=== PATIENT | female | born 1960 | race Caucasian/White ===

== ENCOUNTER → 2017-10-02 08:11 | Outpatient (CLI) | payer OTHER, SELFPAY ==
--- NOTE | 2017-10-02 08:15 | BI_ITS ---
MAMMOGRAPHY - BILATERAL SCREENING 3-D WOLF SYNTHESIS REASON FOR EXAM: Female, 57 years old. Bilateral Screening 3-D tomosynthesis PERTINENT HISTORY: Asymptomatic. Right stereotactic biopsy 2016. Fibrocystic breast disease. Bilateral breast reduction 2014. No significant family history. TECHNIQUE: 2-D mammograms and 3-D Wolf synthesis of the breast (s) were performed. CAD was performed. COMPARISON: 08/22/2016 through 12/22/2014. FINDINGS: The breast composition is composed of scattered fibroglandular density. No new asymmetric density, dominant mass, dense spiculated masses, abnormal clustered microcalcifications, architectural distortion, skin thickening or nipple retraction identified. Coarse benign-appearing calcifications. Right subareolar tiny biopsy clip. No new abnormality identified with tomosynthesis. There has been no significant change since the prior study. BI/SCREENING MAMM (CAD), BILAT IMPRESSION: No mammographic signs of malignancy. Routine yearly mammograms recommended. ASSESSMENT CATEGORY: BIRADS Category 2: Benign. A letter regarding these results will be sent to the patient by the facility within 30 days. FOLLOW UP RECOMMENDATION: Yearly follow up mammogram recommended. (A) Negative results should not deter biopsy as a palpable lesion should be followed on clinical grounds and biopsy performed if clinically persistent for 3 months or increasing size. Approximately 10% of breast cancers are not detected by mammography. A normal mammogram should not delay biopsy of a clinically suspicious abnormality. Electronically Signed: Harshad Cao, at 20:05 EDT Tel , Service support ,
== END ==
PROVIDERS: Family Provider Nurse Practitioner Family; PCP Nurse Practitioner Family; Visit Provider Nurse Practitioner Family
DX: Z12.31 Encounter for screening mammogram for malignant neoplasm of breast (principal)
CPT/HCPCS: 77063; 77067

== ENCOUNTER → 2018-10-08 | Outpatient (CLI) | payer OTHER, SELFPAY ==
--- NOTE | 2018-10-08 08:08 | BI_ITS ---
MAMMOGRAPHY - BILATERAL SCREENING REASON FOR EXAM: Female, 58 years old. Routine annual screening examination. PERTINENT HISTORY: Sister with breast cancer. Remote right stereotactic breast biopsy and bilateral breast reduction surgery. TECHNIQUE: Digital bilateral breast stacey (3D mammographic acquisition) in the CC and MLO projections. 2-D mediolateral oblique (MLO) and craniocaudad (CC) views of both breasts were obtained. CAD: Full Field Digital Mammography with Computer Added Detection was performed. COMPARISON: Comparison is made with prior study dated October 02, 2017 and August 22, 2016. FINDINGS: Breast Composition: There are scattered areas of fibroglandular density. There are no dominant masses or suspicious calcifications. Stable appearance of the tissue clip marker in the right subareolar region. No other significant abnormalities are identified. There has been no significant change since the prior study. BI/SCREENING MAMM (CAD), BILAT IMPRESSION: Stable bilateral screening mammogram. Yearly follow-up mammogram recommended. (A) ASSESSMENT CATEGORY: BIRADS Category 2: Benign. A letter regarding these results will be sent to the patient by the facility within 30 days. Approximately 10% of breast cancers are not detected by mammography. A normal mammogram should not delay biopsy of a clinically suspicious abnormality. [id number] Electronically Signed: Yasir Lebron, at 8:55 EDT , Service support ,
== END | disposition home or self-care (01) ==
LOC: OPBI 08:05
PROVIDERS: Family Provider Nurse Practitioner Family; PCP Nurse Practitioner Family; Referring Provider Nurse Practitioner Family; Visit Provider Nurse Practitioner Family
DX: Z12.31 Encounter for screening mammogram for malignant neoplasm of breast (principal)
CPT/HCPCS: 77067

== ENCOUNTER → 2019-11-04 07:58 | Outpatient (CLI) | payer OTHER, SELFPAY ==
--- NOTE | 2019-11-04 08:02 | BI_ITS ---
MAMMOGRAPHY - BILATERAL SCREENING REASON FOR EXAM: Female, 59 years old. Routine annual screening examination. PERTINENT HISTORY: Non-contributory. History of prior right stereotactic breast biopsy and bilateral breast reduction surgery. TECHNIQUE: Digital bilateral breast wolf (3D mammographic acquisition) in the CC and MLO projections. 2-D mediolateral oblique (MLO) and craniocaudad (CC) views of both breasts were obtained. CAD: Full Field Digital Mammography with Computer Added Detection was performed. COMPARISON: Comparison is made with prior study dated 10/08/2018 and 10/02/2017. FINDINGS: Breast Composition: There are scattered areas of fibroglandular density. There are no dominant masses or suspicious calcifications. Stable benign-appearing bilateral axillary lymph nodes. Once again, a tissue clip marker is seen in the right subareolar region. No other significant abnormalities are identified. There has been no significant change since the prior study. BI/SCREEN MAMM (CAD) W/WOLF BILAT IMPRESSION: Stable bilateral screening mammogram. Yearly follow-up mammogram recommended. (A) ASSESSMENT CATEGORY: BIRADS Category 2: Benign. A letter regarding these results will be sent to the patient by the facility within 30 days. Approximately 10% of breast cancers are not detected by mammography. A normal mammogram should not delay biopsy of a clinically suspicious abnormality. [id number] Electronically Signed: Yasir Lebron, at 9:02 EDT , Service support ,
== END ==
PROVIDERS: PCP Nurse Practitioner Family; Referring Provider Nurse Practitioner Family; Visit Provider Nurse Practitioner Family
DX: Z12.31 Encounter for screening mammogram for malignant neoplasm of breast (principal)
CPT/HCPCS: 77063; 77067

== ENCOUNTER → 2020-11-02 06:53 | Outpatient (CLI) | payer OTHER, SELFPAY ==
--- NOTE | 2020-11-02 06:59 | CT_ITS ---
STUDY: CT ABDOMEN AND PELVIS WITHOUT CONTRAST REASON FOR EXAM: Female, 60 years old. CHRONIC CYSTITIS. Prior right nephrectomy. RADIATION DOSAGE (If Supplied By Facility): CTDIvol = ( 29.33 ) mGy, DLP = ( 1582.56 ) mGycm TECHNIQUE: Transaxial images were obtained from the dome of the diaphragm to the symphysis pubis without oral contrast, and without intravenous contrast. Sagittal and coronal images were reconstructed. Individualized dose optimization techniques were used for this CT. COMPARISON: None. FINDINGS: The visualized lung bases are unremarkable. The visualized portions of the heart are within normal limits. There is decreased attenuation of the liver consistent with steatosis. The patient is status post cholecystectomy. Normal spleen. Normal pancreas. Normal bilateral adrenal glands. The patient is status post right nephrectomy. Normal left kidney. There is a small hiatal hernia. Normal small intestine. Normal colon. The patient is status post appendectomy. Normal abdominal aorta. Normal inferior vena cava. There is borderline retroperitoneal lymphadenopathy with enlarged nodes no greater than 10mm in the short axis diameter. The bladder is only partially filled. There is absence of the uterus consistent with a prior hysterectomy. There is a small umbilical hernia containing fat. Minimal anterior listhesis of L4 on L5 secondary to facet joint osteoarthritis. CT/Abdomen/Pelvis without Cont IMPRESSION: Status post right nephrectomy. Fatty infiltration of the liver. Electronically Signed: Yasir Lebron MD at 9:50 EDT , Service support ,
== END ==
PROVIDERS: PCP Nurse Practitioner Family; Referring Provider Nurse Practitioner Adult Health; Visit Provider Nurse Practitioner Adult Health
DX: N30.21 Other chronic cystitis with hematuria (principal); Z90.5 Acquired absence of kidney
CPT/HCPCS: 74176

== ENCOUNTER → 2020-11-23 08:24 | Outpatient (CLI) | payer OTHER, SELFPAY ==
--- NOTE | 2020-11-23 08:25 | BI_ITS ---
MAMMOGRAPHY - BILATERAL SCREENING REASON FOR EXAM: Female, 60 years old. Routine annual screening examination. PERTINENT HISTORY: Sister with breast cancer. Prior right stereotactic breast biopsy and bilateral breast reduction surgery. TECHNIQUE: Digital bilateral breast wolf (3D mammographic acquisition) in the CC and MLO projections. 2-D mediolateral oblique (MLO) and craniocaudad (CC) views of both breasts were obtained. CAD: Full Field Digital Mammography with Computer Added Detection was performed. COMPARISON: Comparison is made with prior study dated 11/04/2019 and 10/08/2018. FINDINGS: Breast Composition: There are scattered areas of fibroglandular density. There are no dominant masses or suspicious calcifications. Interstitial clip marker is seen in the deep upper aspect of the left breast. Stable appearance of the small bilateral axillary lymph nodes. No other significant abnormalities are identified. There has been no significant change since the prior study. BI/SCRN MAMM (CAD)W/WOLF BILAT IMPRESSION: Stable bilateral screening mammogram. Yearly follow-up mammogram recommended. (A) ASSESSMENT CATEGORY: BIRADS Category 2: Benign. A letter regarding these results will be sent to the patient by the facility within 30 days. Approximately 10% of breast cancers are not detected by mammography. A normal mammogram should not delay biopsy of a clinically suspicious abnormality. [id number] Electronically Signed: Yasir Lebron MD at 9:19 EDT , Service support ,
== END ==
PROVIDERS: PCP Nurse Practitioner Family; Referring Provider Nurse Practitioner Family; Visit Provider Nurse Practitioner Family
DX: Z12.31 Encounter for screening mammogram for malignant neoplasm of breast (principal)
CPT/HCPCS: 77063; 77067

== ENCOUNTER → 2021-11-29 | Outpatient (CLI) | payer OTHER, SELFPAY ==
--- NOTE | 2021-11-29 08:56 | BI_ITS ---
MAMMOGRAPHY - BILATERAL SCREENING REASON FOR EXAM: Female, 61 years old. Routine annual screening examination. PERTINENT HISTORY: Sister with breast cancer. Prior right stereotactic breast biopsy and bilateral breast reduction surgery. TECHNIQUE: Digital bilateral breast wolf (3D mammographic acquisition) in the CC and MLO projections. 2-D mediolateral oblique (MLO) and craniocaudad (CC) views of both breasts were obtained. CAD: Full Field Digital Mammography with Computer Added Detection was performed. COMPARISON: Comparison is made with prior study dated 11/23/2020 and 11/04/2019. FINDINGS: Breast Composition: There are scattered areas of fibroglandular density. There are no dominant masses or suspicious calcifications. A tissue clip marker is seen in the upper deep slightly lateral aspect of the left breast in keeping with prior biopsy. Stable bilateral fat-containing axillary lymph nodes. No other significant abnormalities are identified. There has been no significant change since the prior study. BI/SCRN MAMM (CAD)W/WOLF BILAT IMPRESSION: Stable bilateral screening mammogram. Yearly follow-up mammogram recommended. (A) ASSESSMENT CATEGORY: BIRADS Category 2: Benign. A letter regarding these results will be sent to the patient by the facility within 30 days. Approximately 10% of breast cancers are not detected by mammography. A normal mammogram should not delay biopsy of a clinically suspicious abnormality. [id number] Electronically Signed: Yasir Lebron MD at 10:13 EDT ,
== END | disposition home or self-care (01) ==
LOC: OPBI 08:48
PROVIDERS: PCP Nurse Practitioner Family; Visit Provider Nurse Practitioner Family
DX: Z12.31 Encounter for screening mammogram for malignant neoplasm of breast (principal); Z80.3 Family history of malignant neoplasm of breast
CPT/HCPCS: 77063; 77067

== ENCOUNTER → 2022-12-05 | Outpatient (CLI) | payer BC, SELFPAY ==
--- NOTE | 2022-12-05 08:03 | BI_ITS ---
MAMMOGRAPHY - BILATERAL SCREENING REASON FOR EXAM: Female, 62 years old. Routine annual screening examination. PERTINENT HISTORY: Sister with breast cancer. Prior bilateral breast reduction surgery and right stereotactic breast biopsy. TECHNIQUE: Digital bilateral breast wolf (3D mammographic acquisition) in the CC and MLO projections. 2-D mediolateral oblique (MLO) and craniocaudad (CC) views of both breasts were obtained. CAD: Full Field Digital Mammography with Computer Added Detection was performed. COMPARISON: Comparison is made with prior study November 29, 2021 and November 23, 2020. FINDINGS: Breast Composition: There are scattered areas of fibroglandular density. There are no dominant masses or suspicious calcifications. A tissue clip marker is once again seen in the upper deep slightly lateral aspect of the left breast. Stable small bilateral fat-containing axillary lymph nodes. No other significant abnormalities are identified. There has been no significant change since the prior study. BI/SCRN MAMM (CAD)W/WOLF BILAT IMPRESSION: Stable bilateral screening mammogram. Yearly follow-up mammogram recommended. (A) ASSESSMENT CATEGORY: BIRADS Category 2: Benign. A letter regarding these results will be sent to the patient by the facility within 30 days. Approximately 10% of breast cancers are not detected by mammography. A normal mammogram should not delay biopsy of a clinically suspicious abnormality. [id number] Electronically Signed: Yasir Lebron MD at 10:08 EDT ,
== END | disposition home or self-care (01) ==
LOC: OPBI 08:01
PROVIDERS: PCP Nurse Practitioner Family; Visit Provider Nurse Practitioner Family
DX: Z12.31 Encounter for screening mammogram for malignant neoplasm of breast (principal)
CPT/HCPCS: 77063; 77067

== ENCOUNTER → 2023-04-24 | Outpatient (CLI) | payer BC, SELFPAY ==
[2023-04-24 16:17] LABS: Vitamin D,25 Hydroxy 39.2 ng/mL
[2023-04-24 16:39] LABS: T4 Free Direct 1.25 ng/dL (0.76-1.46); Thyroid Stim Hormone (TSH) 1.13 uIU/mL (0.358-3.74)
--- OUTSIDE RECORDS SUMMARY | 2023-04-24 21:24 | XMS RPT_ITS | CCD ---
Author Name Unknown Address [facility] [address] [place] [address] Organization [facility] Care Team Providers Care Machine Rebuilder Name Role Phone AYLA Stallings CNP, BORIS Yoder Primary Care Phys ician Ashiwni PT, Ora Unavailable Unavailable AYLA Stallings CNP, BORIS Yoder Attending U navailable AYLA ANDREW - ZANE, BORIS Yoder Primary Care U navailable SUPPAN DPM, COLLEEN Green Attending Unavailable AYLA GEOSPATIAL SYSTEMS INTEGRATOR - COMMERCIAL INTELLIGENCE MANAGER, BORIS Yoder Primary Care U navailable SUPPAN DPM, COLLEEN Green Attending Unavailable AYLAJUAN ANDREW - COMMERCIAL INTELLIGENCE MANAGER, BORIS Yoder Primary Care U navailable PAT MIRANDA, NELSON Salazar Attending Unavail able AYLAJUAN ANDREW - COMMERCIAL INTELLIGENCE MANAGER, BORIS Yoder Primary Care U navailable Allergies Allergy Classification Reported Allergen(s) Allergy Type Date of Onset Reaction(s) Facility (6 sources) Codeine; Translations: [codeine] Drug Allergy [facility] (6 sources) Erythromycin; Translations: [erythromycin] Drug Allergy [facility] Medications Current Medications Medication Drug Class(es) Dates Sig (Normalized) Sig (Original) acetaminophen 500 mg oral tablet (6 sources) Start: 02-17-2019 acetaminophen 500 mg oral tablet Dose : 1,000 mg = 2 tab(s), Oral, TID, PRN for pain, 0 Refill(s) Start Date: 02/17/19 Status: Ordered azithromycin 250 mg oral tablet (1 source) Macrolide Antimicrobial Start: 02-10-2021 End: 02-15-2021 Zithromax 250 mg oral tablet Dose : 250 mg = 1 tab(s), Oral, qDay, follow directions on Z-Meek, X 5 day(s), # 6 tab(s), 0 Refill(s), 02/15/21 9:06:00 EST, Pharmacy: [facility], URI (upper respiratory infection), 160, cm, 11/28/20 11:22:00 EDT, Height, 122.7, kg, 11/28/20... Start Date: 02/10/21 Stop Date: 02/15/21 Status: Ordered AZO Urinary Pain Relief Max Strength (3 sources) Start: 12-04-2021 AZO Urinary Pain Relief Max Strength Oral, TIDPC, 0 Refill(s) Start Date: 12/04/21 Status: Ordered dexamethasone 6 mg oral tablet (1 source) Corticosteroid Start: 03-23-2021 End: 03-30-2021 dexamethasone 6 mg oral tablet Dose : 6 mg = 1 tab(s), Oral, qDay, X 7 day(s), # 7 tab(s), 0 Refill(s), 03/30/21 10:07:00 EST, Pharmacy: [facility], Acute sinusitis, unspecified, 160, cm, 03/23/21 9:14:00 EST, Height, kg, 03/23/21 9:14:00 EST, Dosing Weight Start Date: 03/23/21 Stop Date: 03/30/21 Status: Ordered guaiFENesin 600 mg oral tablet (1 source) Start: 03-23-2021 End: 04-02-2021 guaiFENesin 600 mg oral tablet, extended release Dose : 600 mg = 1 tab(s), Oral, q12h, X 10 day(s), # 20 tab(s), 0 Refill(s), 04/02/21 10:07:00 EST, Pharmacy: [facility], Acute sinusitis, unspecified, 160, cm, 03/23/21 9:14:00 EST, Height, kg, 03/23/21 9:14:00 EST, Dosing Weight Start Date: 03/23/21 Stop Date: 04/02/21 Status: Ordered levoFLOXacin 500 mg oral tablet (1 source) Quinolone Antimicrobial Start: 03-23-2021 End: 03-30-2021 levoFLOXacin 500 mg oral tablet Dose : 500 mg = 1 tab(s), Oral, q24h, X 7 day(s), # 7 tab(s), 0 Refill(s), 03/30/21 10:07:00 EST, Pharmacy: [facility], Acute sinusitis, unspecified, 160, cm, 03/23/21 9:14:00 EST, Height, 122.7, kg, 03/23/21 9:14:00 EST, Dosing Weight Start Date: 03/23/21 Stop Date: 03/30/21 Status: Ordered levothyroxine sodium 0.125 mg oral tablet (6 sources) l-Thyroxine Start: 09-28-2022 levothyroxine 125 mcg (0.125 mg) oral tablet Dose : 125 mcg = 1 tab(s), Oral, qDay, # 30 tab(s), 0 Refill(s), Pharmacy: [id number], 160, cm, 05/31/22 11:55:00 EDT, Height, kg, 05/31/22 11:55:00 EDT, Dosing Weight Start Date: 09/28/22 Status: Ordered Completed/Discontinued Medications Medication Drug Class(es) Dates Sig (Normalized) Sig (Original) Misc Medication (6 sources) Start: 09-17-2019 Misc Medication Grapeseed capsules. 2 caps daily, 0 Refill(s), 120.8 Start Date: 09/17/19 Status: Ordered Problems Problem Classification Problem Date Documented Da te Episodic/Chronic Acquired foot deformities (3 sources) Talipes planus 05-31-2022 Episodic Heart valve disorders (6 sources) Heart murmur 09-19-2020 Episodic Joint disorders and dislocations; trauma-related (6 sources) 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 Chronic Nutritional deficiencies (8 sources) Vitamin D deficiency; Translations: [Vitamin D deficiency, unspecified] Onset: 10-04-2022 09-19-2020 Chronic Open wounds of head; neck; and trunk (1 source) Laceration of head; Translations: [Laceration without foreign body of other part of head, initial encounter] Onset: 11-25-2021 Episodic Other connective tissue disease (3 sources) Plantar fasciitis 05-31-2022 Episodic Other infections; including parasitic (3 sources) Malaria 06-29-2022 Episodic Other injuries and conditions due to external causes (1 source) Injury of head; Translations: [Unspecified injury of head, initial encounter] Onset: 11-25-2021 Episodic Other screening for suspected conditions (not mental disorders or infectious disease) (2 sources) Encounter for screening for diabetes mellitus; Translations: [Encounter for screening for diabetes mellitus] Onset: 10-04-2022 Episodic Phlebitis; thrombophlebitis and thromboembolism (12 sources) Deep venous thrombosis of lower extremity; Translations: [H/O: Deep vein thrombosis] 03-06-2019 Episodic Residual codes; unclassified (6 sources) Increased body mass index 09-17-2019 Episodic Residual codes; unclassified (4 sources) Anticoagulant control - finding 09-28-2021 Episodic Thyroid disorders (10 sources) Hypothyroidism; Translations: [Hypothyroidism, unspecified] Onset: 10-04-2022 08-21-2019 Chronic Unclassified (20 sources) Patient encounter status 08-21-2019 Unclassified (4 sources) Anticoagulant effect 09-28-2021 Unclassified (3 sources) Vaccination needed 06-08-2022 Urinary tract infections (9 sources) Recurrent urinary tract infection 09-19-2020 Episodic Varicose veins of lower extremity (6 sources) Varicose veins of lower extremity 03-06-2019 Episodic Results Test Name Value Interpretation Reference Range Facil ity Vital Signs Date Time Vital Sign Value Performing Clinician Chanell coony 10-19-2022 10:43-0400 Diastolic Blood Pressure Non-Invasive 64 1 COLLEEN BRUNSON DPM [facility] 10-19-2022 10:43-0400 Heart rate 67 /min COLLEEN BRUNSON DPM [facility] 10-19-2022 10:43-0400 Systolic Blood Pressure Non-Invasive 126 1 COLLEEN BRUNSON DPM [facility] 10-19-2022 10:22-0400 Diastolic Blood Pressure Non-Invasive 65 1 COLLEEN CROWDERAN DPM [facility] 10-19-2022 10:22-0400 Heart rate 66 /min COLLEEN SUPPAN DPM [facility] 10-19-2022 10:22-0400 Systolic Blood Pressure Non-Invasive 131 1 COLLEEN SUPPAN DPM [facility] 10-19-2022 10:17-0400 Diastolic Blood Pressure Non-Invasive 66 1 COLLEEN SUPPAN DPM [facility] 10-19-2022 10:17-0400 Heart rate 69 /min COLLEEN SUPPAN DPM [facility] 10-19-2022 10:17-0400 Respiratory rate 18 /min COLLEEN SUPPAN DPM [facility] 10-19-2022 10:17-0400 Systolic Blood Pressure Non-Invasive 119 1 COLLEEN SUPPAN DPM [facility] 10-19-2022 10:13-0400 Respiratory rate 17 /min COLLEEN SUPPAN DPM [facility] 10-19-2022 10:05-0400 Body temperature 97.52 [degF] COLLEEN SUPPAN DPM [facility] 10-19-2022 10:05-0400 Respiratory rate 16 /min COLLEEN SUPPAN DPM [facility] 10-19-2022 10:00-0400 Respiratory Rate - Anes 0 br/min COLLEEN SUPPAN DPM [facility] 10-19-2022 09:55-0400 Respiratory Rate - Anes 16 br/min COLLEEN SUPPAN DPM [facility] 08-25-2023 09:50-0400 Respiratory Rate - Anes 18 br/min COLLEEN SUPPAN DPM [facility] 10-19-2022 07:59-0400 Body weight 46.68 kg/m2 COLLEEN SUPPAN DPM [facility] 10-19-2022 07:50-0400 Body height 160 cm COLLEEN SUPPAN DPM [facility] 10-19-2022 07:50-0400 Body temperature 95.72 [degF] COLLEEN SUPPAN DPM [facility] 10-19-2022 07:50-0400 Body weight 119.5 kg COLLEEN SUPPAN DPM [facility] 10-19-2022 07:50-0400 Heart rate 71 /min COLLEEN SUPPAN DPM [facility] 10-11-2022 13:03-0400 Body height 160 cm COLLEEN SUPPAN DPM [facility] 10-11-2022 13:03-0400 Body weight 119.5 kg COLLEEN SUPPAN DPM [facility] 11-25-2021 16:19-0400 Body temperature 97.88 [degF] NELSON STEWART MD [facility] 11-25-2021 16:19-0400 Diastolic blood pressure 96 mm[Hg] NELSON STEWART MD [facility] 11-25-2021 16:19-0400 Heart rate 92 /min NELSON STEWATR MD [facility] 11-25-2021 16:19-0400 Respiratory rate 16 /min NELSON STEWART MD [facility] 11-25-2021 16:19-0400 Systolic blood pressure 154 mm[Hg] NELSON STEWART MD [facility] Encounters Encounter Date Encounter Type Care Provider Facility Start: 10-19-2022 End: 10-19-2022 ambulatory COLLEEN N SUPPAN DPM Facility:B Start: 10-19-2022 End: 10-19-2022 SAME DAY STAY COLLEEN N SUPPAN DPM [facility] Start: 10-11-2022 End: 10-12-2022 ambulatory COLLEEN N SUPPAN DPM Facility:B Start: 10-11-2022 End: 10-11-2022 Admission to establishment COLLEEN N SUPPAN DPM [facility] Start: 10-04-2022 End: 10-09-2022 ambulatory BORIS AGUILA GEOSPATIAL SYSTEMS INTEGRATOR - COMMERCIAL INTELLIGENCE MANAGER Facility:B Start: 10-04-2022 End: 10-08-2022 Outreach Lab BORIS AGUILA GEOSPATIAL SYSTEMS INTEGRATOR - COMMERCIAL INTELLIGENCE MANAGER [facility] Start: 11-25-2021 End: 11-25-2021 Emergency department patient visit NELSON STEWART MD Facility:B Start: 11-25-2021 End: 11-25-2021 Emergency department patient visit NELSON STEWART MD [facility] Start: 03-23-2021 End: 03-23-2021 Patient encounter procedure BORIS AGUILA GEOSPATIAL SYSTEMS INTEGRATOR - COMMERCIAL INTELLIGENCE MANAGER [facility] Start: 02-10-2021 End: 12-21-2021 Outreach Lab BORIS AGUILA APRN - COMMERCIAL INTELLIGENCE MANAGER [facility] Procedures Date Procedure Procedure Detail Performing Clinician Start: 02-26-2008 Cholecystectomy BORIS AYLA GEOSPATIAL SYSTEMS INTEGRATOR - COMMERCIAL INTELLIGENCE MANAGER Start: 02-25-2003 Vaginal hysterectomy uterus 250 gm/< BORIS AGUILA GEOSPATIAL SYSTEMS INTEGRATOR - Diasome Start: 02-25-1991 Anes lithotrp xtrcor p shock wave w/water bath BORIS AGUILA GEOSPATIAL SYSTEMS INTEGRATOR [email or web address] Immunizations Immunization Date Immunization Notes Care Provider Fa cili 06-08-2022 zoster vaccine recombinant; Translations: [Shingrix] BORIS AGUILA GEOSPATIAL SYSTEMS INTEGRATOR [email or web address] [facility] 06-08-2022 hepatitis A vaccine, adult dosage; Translations: [Havrix] BORIS AGUILA GEOSPATIAL SYSTEMS INTEGRATOR [email or web address] [facility] 11-27-2021 tetanus toxoid, redu marlin diphtheria toxoid, and acellular pertussis vaccine, adsorbed; Translations: [Boostrix (Tdap)] BORIS AGUILA GEOSPATIAL SYSTEMS INTEGRATOR [email or web address] [facility] 11-21-2015 influenza virus vaccine, unspecified formulation BORIS AGUILA GEOSPATIAL SYSTEMS INTEGRATOR - COMMERCIAL INTELLIGENCE MANAGER [facility] 11-22-2014 influenza virus vaccine, unspecified formulation BORIS AGUILA GEOSPATIAL SYSTEMS INTEGRATOR - Diasome [facility] 01-26-2014 influenza virus vaccine, unspecified formulation BORIS AGUILA GEOSPATIAL SYSTEMS INTEGRATOR [email or web address] [facility] 09-11-2013 measles/mumps/rubell a virus vaccine BORIS AGUILA GEOSPATIAL SYSTEMS INTEGRATOR [email or web address] [facility] 12-16-2012 influenza virus vaccine, unspecified formulation BORIS AGUILA GEOSPATIAL SYSTEMS INTEGRATOR - COMMERCIAL INTELLIGENCE MANAGER [facility] 12-07-2011 influenza virus vaccine, unspecified formulation BORIS AGUILA GEOSPATIAL SYSTEMS INTEGRATOR - COMMERCIAL INTELLIGENCE MANAGER [facility] 2004 hepatitis A vaccine, adult dosage BORIS AGUILA GEOSPATIAL SYSTEMS INTEGRATOR - COMMERCIAL INTELLIGENCE MANAGER [facility] Payers Date Payer Category Payer Unknown [id number] 2021 Unknown [id number] 1960 Unknown [id number] [id number] 1960 Unknown [id number] [id number] 1960 Unknown [id number] [id number] 1960 Unknown [id number] [id number] Social History Date Type Detail Facility Start: 03-06-2019 Never smoked t obacco (finding) [facility] Sex Assigned At Female [facility] Functional Status Date Assessment Result Facility 10-19-2022 Functional Status Repositions self [facility] 10-19-2022 Functional Status Maintained [facility] 10-11-2022 Functional Status Sensory Deficits None A [facility] 11-25-2021 Functional Status Independent [facility] Mental Status Date Assessment Result Facility 10-19-2022 Mental Status Oriented x 4 [facility] 10-19-2022 Mental Status [facility] 11-25-2021 Mental Status Orientation Oriented x 4 [facility] Clinical Notes 02-10-2021 to 10-19-2022 Note Date & Type Note Facility NELSON ADMISSION HISTORY AN D PHYSICIAL CHIEF COMPLAINT: HISTORY OF PRESENT ILLNESS: REVIEW OF SYSTEMS: ACTIVE PROBLEMS: (21) Adequate anticoagulation on anticoagulant therapy (440750307) Anticoagulation goal of INR 2 to 3 (90720263) Chronic knee instability (849077310) DVT of lower extremity (deep venous thrombosis) (0683943365) Heart murmur, 1/6 (680792817) History of DVT of lower extremity (5729129254) Hypothyroidism, adult (70934577) Increased BMI (body mass index) (92904071) Malaria (941432222) Need for vaccination (8067396928) Pes planus of both feet (4602160816) Plantar fasciitis (731202002) Recurrent UTI (767842823) Recurrent UTI (urinary tract infection) (381092680) Screening for breast cancer (998805259) Screening for cardiovascular condition (844990905) Screening for deficiency anemia (798115555) Screening for diabetes mellitus (914560614) Varicose veins of legs (055350615) Vitamin D deficiency (51921545) Well adult health check (692007731) MEDICATIONS: Active Inpt Meds: None Active PRN Meds: None One Time Meds: None Active IV Meds: Lactated Ringers Infusion 1,000 mL (LR 1,000 mL) Start: 10/19/22 7:46:00 EDT, Rate: 125 mL/hr, 10/19/22 7:46:00 EDT ALLERGIES: (2) codeine erythromycin FAMILY HISTORY: SOCIAL HISTORY: PHYSICAL EXAM: VITALS: BshotiMdewDVZtmybUFAeA4YMJ4LhqbXy(kg) 10/19 07:5035.4--902581AS72/12260.5 24 Hr Tmax: 35.4 at 10/19 07:50 36 Hr Tmax: 35.4 at 10/19 07:50 Vital Signs are the last 5 in the past 48 hours. Weights display the last 5 within 7 days. Initial Wt: 10/19 119.5 kg 263 lb Current Wt: 10/19 119.5 kg 263 lb GENERAL: HEENT: CARDIOVASCULAR: RESPIRATORY: ABDOMEN: EXREMETIES: NEUROLOGICAL: PSYCHIATRIC: LABS: No 36hr Lab Data DIAGNOSTICS: IMPRESSION: PLAN: History and Physical Update I have examined the patient; reviewed the H&P and there are no changes to the H&P unless noted below. Future Appointments Appointment Date:10/25/2022 07:40:00 AM Scheduled Provider:BORIS AGUILA APRN, CNP Location:[facility] Appointment Type:PC OV Future Scheduled Tests Radiology* XR Orbits Minimum 4 Views 12/09/21 [facility] 08-25-2023 Hospital Discharge instructions Patient Education 10/19/2022 10:16:52 Nausea and Vomiting, Adult, Ystd-ri-Qplh Nausea and Vomiting, Adult Nausea is feeling sick to your stomach or feeling that you are about to throw up (vomit). Vomiting is when food in your stomach is thrown up and out of the mouth. Throwing up can make you feel weak. It can also make you lose too much water in your body (get dehydrated). If you lose too much water in your body, you may: Feel tired. Feel thirsty. Have a dry mouth. Have cracked lips. Go pee (urinate) less often. Older adults and people with other diseases or a weak body defense system (immune system) are at higher risk for losing too much water in the body. If you feel sick to your stomach and you throw up, it is important to follow instructions from your doctor about how to take care of yourself. Follow these instructions at home: Watch your symptoms for any changes. Tell your doctor about them. Follow these instructions to carefor yourself at home. Eating and drinking Take an ORS (oral rehydration solution). This is a drink that is sold at pharmacies and stores. Drink clear fluids in small amounts as you are able, such as: ?Water. ?Ice chips. ?Fruit juice that has water added (diluted fruit juice). ?Low-calorie sports drinks. Eat bland, ulfu-zt-xrgtza foods in small amounts as you are able, such as: ?Bananas. ?Applesauce. ?Rice. ?Low-fat (lean) meats. ?Thurman. ?Crackers. Avoid drinking fluids that have a lot of sugar or caffeine in them. This includes energy drinks, sports drinks, and soda. Avoid alcohol. Avoid spicy or fatty foods. General instructions Take suyt-kvk-fbafvhj and prescription medicines only as told by your doctor. Drink enough fluid to keep your pee (urine) pale yellow. Wash your hands often with soap and water. If you cannot use soap and water, use hand antitank assault gunner. Make sure that all people in your home wash their hands well and often. Rest at home while you get better. Watch your condition for any changes. Take slow and deep breaths when you feel sick to your stomach. Keep all follow-up visits as told by your doctor. This is important. Contact a doctor if: Your symptoms get worse. You have new symptoms. You have a fever. You cannot drink fluids without throwing up. You feel sick to your stomach for more than 2 days. You feel light-headed or dizzy. You have a headache. You have muscle cramps. You have a rash. You have pain while peeing. Get help right away if: You have pain in your chest, neck, arm, or jaw. You feel very weak or you pass out (faint). You throw up again and again. You have throw up that is bright red or looks like black coffee grounds. You have bloody or black poop (stools) or poop that looks like tar. You have a very bad headache, a stiff neck, or both. You have very bad pain, cramping, or bloating in your belly (abdomen). You have trouble breathing. You are breathing very quickly. Your heart is beating very quickly. Your skin feels cold and clammy. You feel confused. You have signs of losing too much water in your body, such as: ?Dark pee, very little pee, or no pee. ?Cracked lips. ?Dry mouth. ?Sunken eyes. ?Sleepiness. ?Weakness. These symptoms may be an emergency. Do not wait to see if the symptoms will go away. Get medical help right away. Call your local emergency services (911 in the [place] Do not drive yourself to the hospital. Summary Nausea is feeling sick to your stomach or feeling that you are about to throw up (vomit). Vomiting is when food in your stomach is thrown up and out of the mouth. Follow instructions from your doctor about eating and drinking to keep from losing too much water in your body. Take afzj-kkv-ngmmcaw and prescription medicines only as told by your doctor. Contact your doctor if your symptoms get worse or you have new symptoms. Keep all follow-up visits as told by your doctor. This is important. This information is not intended to replace advice given to you by your health care provider. Make sure you discuss any questions you have with your health care provider. Document Released: 07/30/2008 Document Revised: 06/05/2019 Document Reviewed: 07/22/2018 [employer] Patient Education 2020 [employer]. 10/19/2022 10:16:43 How to Use Cold Therapy, Cciu-wn-Ehua How to Use Cold Therapy Cold therapy, or cryotherapy, is a treatment that uses cold temperatures to treat an injury or medical condition. It includes using cold packs or ice packs to reduce pain and swelling. Only use cold therapy if your doctor says it is okay. What are the risks? Generally, cold therapy is a safe treatment. However, it is not safe for: People who are not able to say they are in pain. These include small children and people who have memory problems. People who have certain conditions, such as: ?A problem in the vessels that slows blood flow to the fingers and toes (Raynaud's syndrome). ?Feeling very cold easily (cold hypersensitivity). ?Lack of feeling in the area being iced. Cold therapy may not be safe for people who have other conditions. Do not use it without talking toyour doctor if you have: A heart condition. High blood pressure. Open or healing wounds. An infection. Pain and swelling in your joints (rheumatoid arthritis). Poor blood flow in the body. Diabetes. Certain skin conditions. How can I make a cold pack? When using a cold pack at home to reduce pain and swelling, you can use: A silica gel cold pack that has been left in the freezer. You can buy this online or in stores. A sealable plastic bag that has been filled with crushed ice. A washcloth or paper towels soaked in cold (or ice) water. A plastic bag of frozen vegetables. Throw them away when you are finished using them as a cold pack. Supplies needed: A cold pack. A towel. This can be dry or damp, based on what you like. How to use cold therapy 1.Have your cold pack ready. 2.Place a towel between the cold pack and your skin. You may also wrap the cold pack in a towel. 3.Put the cold pack on the affected area. Keep it on for no more than 20 minutes at a time. 4.Check your skin after 5 minutes to make sure that there is no damage to the area. Check for: White spots on your skin. Your skin may look blotchy or mottled. Skin that looks blue or pale. Skin that feels waxy or hard. 5.Repeat these steps as many times each day as told by your doctor. Always use a towel to avoid direct contact with your skin. Contact a doctor if: You start to have white spots on your skin. This may give your skin a blotchy or mottled look. Your skin turns blue or pale. Your skin becomes waxy or hard. Your swelling gets worse. Summary Cold therapy, or cryotherapy, is used to treat an injury or other conditions. It includes using cold packs or ice packs to reduce pain and swelling. Cold therapy is not safe for people who are not able to say they are in pain. When using cold packs or ice packs, always place a towel between the cold source and your skin. Check your skin after 5 minutes of icing it. This is to make sure that there is no skin damage. Contact your doctor if you notice changes in your skin or your swelling gets worse. This information is not intended to replace advice given to you by your health care provider. Make sure you discuss any questions you have with your health care provider. Document Released: 07/30/2008 Document Revised: 11/10/2018 Document Reviewed: 11/10/2018 [employer] Patient Education 2020 [employer]. 10/19/2022 10:16:29 Endoscopic Plantar Fasciotomy, Care After Endoscopic Plantar Fasciotomy, Care After This sheet gives you information about how to care for yourself after your procedure. Your health care provider may also give you more specific instructions. If you have problems or questions, contact your health care provider. What can I expect after the procedure? After the procedure, it is common to have: Foot pain and stiffness. Swelling in the incision area. Follow these instructions at home: If you have a boot or protective shoe: Wear it as told by your health care provider. Remove it only as told by your health care provider. Loosen it if your toes tingle, become numb, or turn cold and blue. Keep it clean. If it is not waterproof: ?Do not let it get wet. ?Cover it with a watertight covering when you take a bath or shower. Bathing Do not take baths, swim, or use a hot tub until your health care provider approves. Ask your healthcare provider if you may take showers. You may only be allowed to take sponge baths. Keep the dressing dry until your health care provider says it can be removed. Incision care Follow instructions from your health care provider about how to take care of your incision. Make sure you: ?Wash your hands with soap and water before and after you change your bandage (dressing). If soap and water are not available, use hand antitank assault gunner. ?Change your dressing as told by your health care provider. ?Leave stitches (sutures), skin glue, or adhesive strips in place. These skin closures may need to stay in place for 2 weeks or longer. If adhesive strip edges start to loosen and curl up, you may trim the loose edges. Do not remove adhesive strips completely unless your health care provider tells you to do that. Check your incision area every day for signs of infection. Check for: ?More swelling or pain. ?Redness. ?Warmth. ?Fluid or blood. ?Pus or a bad smell. Managing pain, stiffness, and swelling If directed, put ice on the affected area. ?Put ice in a plastic bag. ?Place a towel between your skin and the bag. ?Leave the ice on for 20 minutes, 2 3 times a day. Move your toes often to reduce stiffness and swelling. Raise (elevate) the affected area above the level of your heart while you are sitting or lying down. Driving Do not drive for 24 hours if you were given a sedative during your procedure. Ask your health care provider: ?If the medicine prescribed to you requires you to avoid driving or using heavy machinery. ?When it is safe to drive if you have been given a boot or protective shoe to wear on your foot. Activity Do not use the affected foot to support (bear) your body weight until your health care provider says that you can. Use crutches as told by your health care provider. Return to your normal activities as told by your health care provider. Ask your health care provider what activities are safe for you. General instructions Take ztwu-kgb-vnqsjmp and prescription medicines only as told by your health care provider. Keep all follow-up visits as told by your health care provider. This is important. Contact a health care provider if: You have a loss of feeling (numbness) in your foot. You have more swelling or pain at the site of your incision. You have redness at the site of your incision. Your incision feels warm to the touch. You have fluid or blood coming from your incision. You have pus or a bad smell coming from your incision. You have a fever or chills. The dressing is too tight. Get help right away if: You have difficulty moving your foot. You have swelling in your leg or calf. Summary After the procedure, it is common to have foot pain and stiffness. If directed, put ice on the affected area 2 3 times a day. If you have crutches, use them to keep weight off your foot as told by your health care provider. Keep all follow-up visits as told by your health care provider. This is important. This information is not intended to replace advice given to you by your health care provider. Make sure you discuss any questions you have with your health care provider. Document Released: 01/23/2016 Document Revised: 06/04/2019 Document Reviewed: 02/09/2019 [employer] Patient Education 2020 [employer]. 10/19/2022 10:16:16 Monitored Anesthesia Care, Care After Monitored Anesthesia Care, Care After These instructions provide you with information about caring for yourself after your procedure. Your health care provider may also give you more specific instructions. Your treatment has been plannedaccording to current medical practices, but problems sometimes occur. Call your health care provider if you have any problems or questions after your procedure. What can I expect after the procedure? After your procedure, you may: Feel sleepy for several hours. Feel clumsy and have poor balance for several hours. Feel forgetful about what happened after the procedure. Have poor judgment for several hours. Feel nauseous or vomit. Have a sore throat if you had a breathing tube during the procedure. Follow these instructions at home: For at least 24 hours after the procedure: Have a responsible adult stay with you. It is important to have someone help care for you until youare awake and alert. Rest as needed. Do not: ?Participate in activities in which you could fall or become injured. ?Drive. ?Use heavy machinery. ?Drink alcohol. ?Take sleeping pills or medicines that cause drowsiness. ?Make important decisions or sign legal documents. ?Take care of children on your own. Eating and drinking Follow the diet that is recommended by your health care provider. If you vomit, drink water, juice, or soup when you can drink without vomiting. Make sure you have little or no nausea before eating solid foods. General instructions Take wbml-xbi-wbwhgjf and prescription medicines only as told by your health care provider. If you have sleep apnea, surgery and certain medicines can increase your risk for breathing problems. Follow instructions from your health care provider about wearing your sleep device: ?Anytime you are sleeping, including during daytime naps. ?While taking prescription pain medicines, sleeping medicines, or medicines that make you drowsy. If you smoke, do not smoke without supervision. Keep all follow-up visits as told by your health care provider. This is important. Contact a health care provider if: You keep feeling nauseous or you keep vomiting. You feel light-headed. You develop a rash. You have a fever. Get help right away if: You have trouble breathing. Summary For several hours after your procedure, you may feel sleepy and have poor judgment. Have a responsible adult stay with you for at least 24 hours or until you are awake and alert. This information is not intended to replace advice given to you by your health care provider. Make sure you discuss any questions you have with your health care provider. Document Released: 06/03/2016 Document Revised: 05/12/2018 Document Reviewed: 06/03/2016 [employer] Patient Education 2020 [employer]. Follow Up Care 10/03/2022 14:23:01 With:COLLEEN BRUNSON DPHeather, Surgery Address: [address] [place] [address], [address] [facility] [place] [address]- When: Unknown Comments:YOUR FOLLOW UP APPOINTMENT IS OCTOBER 25 AT 1:20 PM. CALL HIM WITH ANY QUESTIONS OR CONCERNS. GO TO THE EMERGENCY ROOM WITH ANY URGENT CONCERNS. [facility] 08-25-2023 Summary of episode note Discharge Instructions Thank you for allowing [facility] to assist you with your healthcare needs. The following is importantdischarge information regarding your hospital visit. Your Care Team BORIS AGUILA APRN, CNP, DR.. What to do next Scheduled Follow-Up Appointments Appointment Type When With Where Contact InformationPC 10/25/2022 07:40 AM EDT BULMARO AGUILA APRN - [facility] Follow Up Appointments Follow Up with COLLEEN BRUNSON DPM, Surgery When Why: YOUR FOLLOW UP APPOINTMENT IS OCTOBER 25 AT 1:20 PM. CALL HIM WITH ANY QUESTIONS OR CONCERNS. GO TO THE EMERGENCY ROOM WITH ANY URGENT CONCERNS. Where: [address] [facility], [address] [facility] [place] [address]- The Following Activity and Diet Have Been Ordered for You Discharge Activity - Ordered -- Other, Follow the post-operative/post-procedure activity instructions provided by your physician's office., 10/19/22 10:08:00 EDT No qualifying data available. The Following Equipment Has Been Ordered for You Discharge Home Equipment Discharge Wound Care - Ordered -- Follow the post-operative/post-procedure wound care instructions provided by your physician's office., 10/19/22 10:08:00 EDT Someone Will Contact You Regarding These Home Health Referrals No home referrals have been ordered for you. No one will call you. Allergies codeine erythromycin Medications Please ask your primary doctor or pharmacist before taking any other medication not listed, including over the counter drugs, herbal medications, vitamins and or supplements as they may interact withyour home medications. What How Much When Instructions Last Dose Unchanged acetaminophen (acetaminophen 500 mg oral tablet) 2 tab(s) by mouth Three (3) times a day as needed for for pain Unchanged cholecalciferol (Vitamin D3 50 mcg (2000 intl units) oral capsule) 4 cap by mouth Every other day Unchanged levothyroxine (levothyroxine 125 mcg (0.125 mg) oral tablet) 1 tab(s) by mouth Once a day Unchanged Misc Medication Grapeseed capsules. 2 caps daily Unchanged nystatin topical (nystatin 100,000 units/ g topical powder) 1 application Topical Three (3) times a day Unchanged phenazopyridine (AZO Urinary Pain Relief Max Strength) by mouth Three (3) times a day after meals Unchanged warfarin (warfarin 2.5 mg oral tablet) 1 tab(s) by mouth Once a day Unchanged warfarin (warfarin 5 mg oral tablet) 1 tab(s) by mouth Once a day 5mg daily Please take this list to your next doctor s visit. Bring all medications you take, including over the counter medications, herbals and other supplements with you to your doctor s visit. Patients and families are reminded to discard old lists and to update any records with all medication providers or retail pharmacies. Education Materials Nausea and Vomiting, Adult Nausea is feeling sick to your stomach or feeling that you are about to throw up (vomit). Vomiting is when food in your stomach is thrown up and out of the mouth. Throwing up can make you feel weak. It can also make you lose too much water in your body (get dehydrated). If you lose too much water in your body, you may: Feel tired. Feel thirsty. Have a dry mouth. Have cracked lips. Go pee (urinate) less often. Older adults and people with other diseases or a weak body defense system (immune system) are at higher risk for losing too much water in the body. If you feel sick to your stomach and you throw up, it is important to follow instructions from your doctor about how to take care of yourself. Follow these instructions at home: Watch your symptoms for any changes. Tell your doctor about them. Follow these instructions to carefor yourself at home. Eating and drinking Take an ORS (oral rehydration solution). This is a drink that is sold at pharmacies and stores. Drink clear fluids in small amounts as you are able, such as: ? Water. ? Ice chips. ? Fruit juice that has water added (diluted fruit juice). ? Low-calorie sports drinks. Eat bland, jmos-eg-waejvg foods in small amounts as you are able, such as: ? Bananas. ? Applesauce. ? Rice. ? Low-fat (lean) meats. ? Thurman. ? Crackers. Avoid drinking fluids that have a lot of sugar or caffeine in them. This includes energy drinks, sports drinks, and soda. Avoid alcohol. Avoid spicy or fatty foods. General instructions Take psrh-vph-bqewlqe and prescription medicines only as told by your doctor. Drink enough fluid to keep your pee (urine) pale yellow. Wash your hands often with soap and water. If you cannot use soap and water, use hand antitank assault gunner. Make sure that all people in your home wash their hands well and often. Rest at home while you get better. Watch your condition for any changes. Take slow and deep breaths when you feel sick to your stomach. Keep all follow-up visits as told by your doctor. This is important. Contact a doctor if: Your symptoms get worse. You have new symptoms. You have a fever. You cannot drink fluids without throwing up. You feel sick to your stomach for more than 2 days. You feel light-headed or dizzy. You have a headache. You have muscle cramps. You have a rash. You have pain while peeing. Get help right away if: You have pain in your chest, neck, arm, or jaw. You feel very weak or you pass out (faint). You throw up again and again. You have throw up that is bright red or looks like black coffee grounds. You have bloody or black poop (stools) or poop that looks like tar. You have a very bad headache, a stiff neck, or both. You have very bad pain, cramping, or bloating in your belly (abdomen). You have trouble breathing. You are breathing very quickly. Your heart is beating very quickly. Your skin feels cold and clammy. You feel confused. You have signs of losing too much water in your body, such as: ? Dark pee, very little pee, or no pee. ? Cracked lips. ? Dry mouth. ? Sunken eyes. ? Sleepiness. ? Weakness. These symptoms may be an emergency. Do not wait to see if the symptoms will go away. Get medical help right away. Call your local emergency services (911 in the [place] Do not drive yourself to the hospital. Summary Nausea is feeling sick to your stomach or feeling that you are about to throw up (vomit). Vomiting is when food in your stomach is thrown up and out of the mouth. Follow instructions from your doctor about eating and drinking to keep from losing too much water in your body. Take kyxl-hvy-kgqvull and prescription medicines only as told by your doctor. Contact your doctor if your symptoms get worse or you have new symptoms. Keep all follow-up visits as told by your doctor. This is important. This information is not intended to replace advice given to you by your health care provider. Make sure you discuss any questions you have with your health care provider. Document Released: 07/30/2008 Document Revised: 06/05/2019 Document Reviewed: 07/22/2018 [employer] Patient Education 2020 [employer] How to Use Cold Therapy Cold therapy, or cryotherapy, is a treatment that uses cold temperatures to treat an injury or medical condition. It includes using cold packs or ice packs to reduce pain and swelling. Only use cold therapy if your doctor says it is okay. What are the risks? Generally, cold therapy is a safe treatment. However, it is not safe for: People who are not able to say they are in pain. These include small children and people who have memory problems. People who have certain conditions, such as: ? A problem in the vessels that slows blood flow to the fingers and toes (Raynaud's syndrome). ? Feeling very cold easily (cold hypersensitivity). ? Lack of feeling in the area being iced. Cold therapy may not be safe for people who have other conditions. Do not use it without talking toyour doctor if you have: A heart condition. High blood pressure. Open or healing wounds. An infection. Pain and swelling in your joints (rheumatoid arthritis). Poor blood flow in the body. Diabetes. Certain skin conditions. How can I make a cold pack? When using a cold pack at home to reduce pain and swelling, you can use: A silica gel cold pack that has been left in the freezer. You can buy this online or in stores. A sealable plastic bag that has been filled with crushed ice. A washcloth or paper towels soaked in cold (or ice) water. A plastic bag of frozen vegetables. Throw them away when you are finished using them as a cold pack. Supplies needed: A cold pack. A towel. This can be dry or damp, based on what you like. How to use cold therapy 1. Have your cold pack ready. 2. Place a towel between the cold pack and your skin. You may also wrap the cold pack in a towel. 3. Put the cold pack on the affected area. Keep it on for no more than 20 minutes at a time. 4. Check your skin after 5 minutes to make sure that there is no damage to the area. Check for: White spots on your skin. Your skin may look blotchy or mottled. Skin that looks blue or pale. Skin that feels waxy or hard. 5. Repeat these steps as many times each day as told by your doctor. Always use a towel to avoid direct contact with your skin. Contact a doctor if: You start to have white spots on your skin. This may give your skin a blotchy or mottled look. Your skin turns blue or pale. Your skin becomes waxy or hard. Your swelling gets worse. Summary Cold therapy, or cryotherapy, is used to treat an injury or other conditions. It includes using cold packs or ice packs to reduce pain and swelling. Cold therapy is not safe for people who are not able to say they are in pain. When using cold packs or ice packs, always place a towel between the cold source and your skin. Check your skin after 5 minutes of icing it. This is to make sure that there is no skin damage. Contact your doctor if you notice changes in your skin or your swelling gets worse. This information is not intended to replace advice given to you by your health care provider. Make sure you discuss any questions you have with your health care provider. Document Released: 07/30/2008 Document Revised: 11/10/2018 Document Reviewed: 11/10/2018 [employer] Patient Education 2020 [employer] Endoscopic Plantar Fasciotomy, Care After This sheet gives you information about how to care for yourself after your procedure. Your health care provider may also give you more specific instructions. If you have problems or questions, contact your health care provider. What can I expect after the procedure? After the procedure, it is common to have: Foot pain and stiffness. Swelling in the incision area. Follow these instructions at home: If you have a boot or protective shoe: Wear it as told by your health care provider. Remove it only as told by your health care provider. Loosen it if your toes tingle, become numb, or turn cold and blue. Keep it clean. If it is not waterproof: ? Do not let it get wet. ? Cover it with a watertight covering when you take a bath or shower. Bathing Do not take baths, swim, or use a hot tub until your health care provider approves. Ask your healthcare provider if you may take showers. You may only be allowed to take sponge baths. Keep the dressing dry until your health care provider says it can be removed. Incision care Follow instructions from your health care provider about how to take care of your incision. Make sure you: ? Wash your hands with soap and water before and after you change your bandage (dressing). If soap and water are not available, use hand antitank assault gunner. ? Change your dressing as told by your health care provider. ? Leave stitches (sutures), skin glue, or adhesive strips in place. These skin closures may need to stay in place for 2 weeks or longer. If adhesive strip edges start to loosen and curl up, you may trim the loose edges. Do not remove adhesive strips completely unless your health care provider tells you to do that. Check your incision area every day for signs of infection. Check for: ? More swelling or pain. ? Redness. ? Warmth. ? Fluid or blood. ? Pus or a bad smell. Managing pain, stiffness, and swelling If directed, put ice on the affected area. ? Put ice in a plastic bag. ? Place a towel between your skin and the bag. ? Leave the ice on for 20 minutes, 2 3 times a day. Move your toes often to reduce stiffness and swelling. Raise (elevate) the affected area above the level of your heart while you are sitting or lying down. Driving Do not drive for 24 hours if you were given a sedative during your procedure. Ask your health care provider: ? If the medicine prescribed to you requires you to avoid driving or using heavy machinery. ? When it is safe to drive if you have been given a boot or protective shoe to wear on your foot. Activity Do not use the affected foot to support (bear) your body weight until your health care provider says that you can. Use crutches as told by your health care provider. Return to your normal activities as told by your health care provider. Ask your health care provider what activities are safe for you. General instructions Take flmw-kpk-vnsoyda and prescription medicines only as told by your health care provider. Keep all follow-up visits as told by your health care provider. This is important. Contact a health care provider if: You have a loss of feeling (numbness) in your foot. You have more swelling or pain at the site of your incision. You have redness at the site of your incision. Your incision feels warm to the touch. You have fluid or blood coming from your incision. You have pus or a bad smell coming from your incision. You have a fever or chills. The dressing is too tight. Get help right away if: You have difficulty moving your foot. You have swelling in your leg or calf. Summary After the procedure, it is common to have foot pain and stiffness. If directed, put ice on the affected area 2 3 times a day. If you have crutches, use them to keep weight off your foot as told by your health care provider. Keep all follow-up visits as told by your health care provider. This is important. This information is not intended to replace advice given to you by your health care provider. Make sure you discuss any questions you have with your health care provider. Document Released: 01/23/2016 Document Revised: 06/04/2019 Document Reviewed: 02/09/2019 [employer] Patient Education 2020 [employer]. Monitored Anesthesia Care, Care After These instructions provide you with information about caring for yourself after your procedure. Your health care provider may also give you more specific instructions. Your treatment has been plannedaccording to current medical practices, but problems sometimes occur. Call your health care provider if you have any problems or questions after your procedure. What can I expect after the procedure? After your procedure, you may: Feel sleepy for several hours. Feel clumsy and have poor balance for several hours. Feel forgetful about what happened after the procedure. Have poor judgment for several hours. Feel nauseous or vomit. Have a sore throat if you had a breathing tube during the procedure. Follow these instructions at home: For at least 24 hours after the procedure: Have a responsible adult stay with you. It is important to have someone help care for you until youare awake and alert. Rest as needed. Do not: ? Participate in activities in which you could fall or become injured. ? Drive. ? Use heavy machinery. ? Drink alcohol. ? Take sleeping pills or medicines that cause drowsiness. ? Make important decisions or sign legal documents. ? Take care of children on your own. Eating and drinking Follow the diet that is recommended by your health care provider. If you vomit, drink water, juice, or soup when you can drink without vomiting. Make sure you have little or no nausea before eating solid foods. General instructions Take niqp-keh-vaqjpch and prescription medicines only as told by your health care provider. If you have sleep apnea, surgery and certain medicines can increase your risk for breathing problems. Follow instructions from your health care provider about wearing your sleep device: ? Anytime you are sleeping, including during daytime naps. ? While taking prescription pain medicines, sleeping medicines, or medicines that make you drowsy. If you smoke, do not smoke without supervision. Keep all follow-up visits as told by your health care provider. This is important. Contact a health care provider if: You keep feeling nauseous or you keep vomiting. You feel light-headed. You develop a rash. You have a fever. Get help right away if: You have trouble breathing. Summary For several hours after your procedure, you may feel sleepy and have poor judgment. Have a responsible adult stay with you for at least 24 hours or until you are awake and alert. This information is not intended to replace advice given to you by your health care provider. Make sure you discuss any questions you have with your health care provider. Document Released: 06/03/2016 Document Revised: 05/12/2018 Document Reviewed: 06/03/2016 [employer] Patient Education 2020 [employer] Additional Information VACCINATE! IT SAVES LIVES! Members of the community who have not yet received the COVID-19 vaccine and would like to receive it can visit one of [facility] vaccine clinics. There are many vaccine clinic locations within the [facility]. For locations and available times, please visit [email or web address]/. It is important to note that some COVID mobile vaccine clinics are held outdoors and may be canceled in rainy or stormy conditions. To learn more about pediatric vaccinations (ages 5-11), we invite you to visit the [facility] webpage. [email or web address] learn more about the COVID-19 vaccine, we invite you to visit the CDC website for a list of frequently asked questions.https://www.cdc.gov/coronavirus/2019-ncov/vaccines/faq.html [facility] Patient Portal Access Instructions: Stay connected with your healthcare team and access your personal medical information anytime with the [facility] Patient Portal. Please follow the directions below to create your [facility] account: 1.Access the email account you provided upon registration to the hospital/physician office.2.Look for an invitation email from [facility].3.Open the email and access the invitation link: AcceptInvitation to [facility].4.Fill in the required wiley to create your account. To access your account, visit [email or web address]. Click the blue button labeled Access Patient Portal and then log in with the username and password that you created in the steps above. You will be able to view your test results, lab results, a summary of your visits, upcoming appointments and more. There is also a convenient messaging option where you can send secure messages to your Socialancevider. In addition, you will have the ability to download any documents or summaries to your computer and/or send the information securely to a physician. Remember that your healthcare information is confidential, so carefully consider who you will allowto register on the [facility] Patient Portal for access to your information. You can also access the [facility] Patient Portal on the [facility] anali. Simply click on Patient Portal and then log into your account. If you would like to receive a full copy of your medical records, please contact the [facility] Medical Records Department by calling [phone], Saturday through Saturday between 8 a.m. and 4:30 p.m. HOW TO SAFELY DISPOSE OF PRESCRIPTION MEDICATIONS Please use one of the following methods to safely dispose of your unused medications. 1.Use a drug disposal kit: the drug disposal pouch allows you to safely discard your old and unuseddrugs. Ask your nurse to give you one when you are discharged.2.Visit a local take-back location: Many local pharmacies and police departments have programs that collect old and unwanted prescriptiondrugs. Call your local pharmacy or go to http://bit.01[employer]/8P3Ov7l to find one close to you.3.Make use of household items: Use cat litter or old coffee grounds to dispose medications if other options arenot available. Mix your drugs with these household products, seal them in an airtight container andthrow it into the garbage. Call [facility]: [phone] to be sure your drugs can be disposed of in this way. Some medicines may require a different approach.4.Never flush your medications down the toilet. IF YOU HAVE BEEN PRESCRIBED AN OPIOID FOR PAIN If you have been prescribed an opioid (such as hydrocodone, oxycodone or morphine), it is critical to understand the possible side effects and risks of opioid pain medications. Even when taken as directed, opioids can have several side effects including: Tolerance, meaning you might need to take more of a medication for the same pain relief. Nausea, vomiting and/or constipation. Sleepiness, dizziness, dry mouth, confusion, depression or itching. Physical dependence, meaning you have withdrawal symptoms when a medication is stopped, can develop within a few days. KNOW YOUR RESPONSIBILITIES It is important to know exactly how much and how often to take the opioid pain medications you are prescribed. Never take opioids in higher amounts or more often than prescribed. Do not combine opioids with alcohol or other drugs that cause drowsiness, such as benzodiazepines, also known as benzos, including diazepam and alprazolam, muscle relaxants or sleep aids. Never sell or share prescription opioids. This is illegal. Store opioids in a secure place and out of reach of others (including children, family, friends and visitors). The last page of this document has been signed and retained as a CHART COPY. Signatures Patient Education Materials Nausea and Vomiting, Adult, Izdd-fj-Yvoh How to Use Cold Therapy, Epvz-kz-Pwon Endoscopic Plantar Fasciotomy, Care After Monitored Anesthesia Care, Care After Medication Leaflets My discharge plan and instructions have been reviewed and explained to me and IAFSHIN JUANITA E understand my current condition and have read and understand these discharge instructions. I have received a written copy of the plan/instructions. If I have questions, I am aware that I should contact my doctor. Patient/[employer] Signature: Date/Time: Relationship to Patient: Witness Name/Signature: Date/Time: [facility]2023 Note NELSON ADMISSION HISTORY AND PHYSICIAL CHIEF COMPLAINT: HISTORY OF PRESENT ILLNESS: REVIEW OF SYSTEMS: ACTIVE PROBLEMS: (21) Adequate anticoagulation on anticoagulant therapy (953051875) Anticoagulation goal of INR 2 to 3 (04417021) Chronic knee instability (751289520) DVT of lower extremity (deep venous thrombosis) (5926566402) Heart murmur, 1/ (397020454) History of DVT of lower extremity (3396139109) Hypothyroidism, adult (13338036) Increased BMI (body mass index) (56609909) Malaria (115846730) Need for vaccination (1733464142) Pes planus of both feet (5693808313) Plantar fasciitis (423488627) Recurrent UTI (345038417) Recurrent UTI (urinary tract infection) (678230047) Screening for breast cancer (606078700) Screening for cardiovascular condition (838876271) Screening for deficiency anemia (290794768) Screening for diabetes mellitus (476177729) Varicose veins of legs (649602136) Vitamin D deficiency (22007864) Well adult health check (415371006) MEDICATIONS: Active Inpt Meds: None Active PRN Meds: None One Time Meds: None Active IV Meds: Lactated Ringers Infusion 1,000 mL (LR 1,000 mL) Start: 10/19/22 7:46:00 EDT, Rate: 125 mL/hr, 10/19/22 7:46:00 EDT ALLERGIES: (2) codeine erythromycin FAMILY HISTORY: SOCIAL HISTORY: PHYSICAL EXAM: VITALS: NxdgjlWhsrKMEggjwBPOlT3TCQ0PidbYk(kg) 10/19 07:5035.4--790572XK48/25371.5 24 Hr Tmax: 35.4 at 10/19 07:50 36 Hr Tmax: 35.4 at 10/19 07:50 Vital Signs are the last 5 in the past 48 hours. Weights display the last 5 within 7 days. Initial Wt: 10/19 119.5 kg 263 lb Current Wt: 10/19 119.5 kg 263 lb GENERAL: HEENT: CARDIOVASCULAR: RESPIRATORY: ABDOMEN: EXREMETIES: NEUROLOGICAL: PSYCHIATRIC: LABS: No 36hr Lab Data DIAGNOSTICS: IMPRESSION: PLAN: History and Physical Update I have examined the patient; reviewed the H&P and there are no changes to the H&P unless noted below. Digitally Signed by COLLEEN BRUNSON DPM on 10/19/2022 08:20 AM [facility]10-01-2022 Hospital Discharge instructions Patient Education 11/25/2021 17:07:30 Suture Care Suture Care Stitches (sutures) are used to close wounds. Sutures also help stop bleeding and speed healing. To help your wound heal, follow the tips on this handout. Some sutures need to be removed by a healthcare provider. Others dissolve on their own. Sometimes strips of tape are used. You ll be told what kind of sutures you have. Keep sutures clean Avoid doing things that could cause dirt or sweat to get on your sutures. If needed, cover your sutures with a bandage (dressing) to protect them. Don t pick at scabs. They help protect the wound. Don t wash the area around your sutures unless your healthcare provider says it s OK. Then, follow his or her instructions for washing and drying. Keep sutures dry Keep your sutures out of water. Take a sponge bath to avoid getting your sutures wound wet, unless your healthcare provider tells you otherwise. Ask your provider when can you take a shower or bathe. Ask your provider about the best way to keep your sutures dry when bathing or showering. If sutures get damp, pat them dry. Changing your dressing Leave the dressing in place until you are told to remove it or change it. Change it only as directed, using clean hands: After the first ___hours, change your dressing every ___hours. Change your dressing if it gets wet or dirty. Other tips To help wounds on an arm or leg heal, use the affected limb as little as possible. To help reduce swelling and throbbing, raise the area with sutures above your heart. To help prevent itching, cover sutures with gauze. If sutures itch, try not to scratch them. For pain relief, try acetaminophen or ibuprofen. Don t use aspirin. It can increase bleeding. When to seek medical care Call your healthcare provider if you notice any of the following signs: Increased soreness, pain, or tenderness after 24 hours A red streak, increased redness, or puffiness near the wound White, yellowish, or bad smelling discharge from the wound Bleeding that can t be stopped by applying pressure Steri-Strips fall off or stitches dissolve before the wound heals Fever over 100.4 F (38.0 C) 8004-3107 [employer]. [address] [place] [address]. All rights reserved. This information is not intended as a substitute for professional medical care. Always follow yourhealthcare professional's instructions. Follow Up Care 11/25/2021 16:11:22 With:BORIS AGUILA APRN, CNP Address: [address] [place] [address]- When:2-4 days [facility] 10-01-2022 Note Discharge Instructions Thank you for allowing [facility] to assist you with your healthcare needs. The following is importantdischarge information regarding your hospital visit. Diagnosis from Today's Visit Facial laceration Closed head injury Closed head injury without LOC What to Do Next Instructions from Your Care Team your stitches are absorbable. Your head CT was normal today. No qualifying data available. Post Acute Orders No qualifying data available. You Need to Schedule the Following Appointments Follow Up with BORIS AGUILA APRN, CNP When Within 2-4 days Where: [address] [place] [phone]- Allergies codeine erythromycin Medications Please ask your primary doctor or pharmacist before taking any other medication not listed, including over the counter drugs, herbal medications, vitamins and or supplements as they may interact withur home medications. What How Much When Instructions Last Dose Unchanged acetaminophen (acetaminophen 500 mg oral tablet) 2 tab(s) by mouth Three (3) times a day as needed for for pain Unchanged levothyroxine (levothyroxine 125 mcg (0.125 mg) oral tablet) 1 tab(s) by mouth Once a day Unchanged Misc Medication Grapeseed capsules. 2 caps daily Unchanged nystatin topical (nystatin 100,000 units/ g topical powder) 1 application Topical Three (3) times a day Unchanged warfarin (warfarin 2.5 mg oral tablet) 1 tab(s) by mouth Once a day Unchanged warfarin (warfarin 5 mg oral tablet) 1 tab(s) by mouth Once a day 5mg daily Please take this list to your next doctor s visit. Bring all medications you take, including over the counter medications, herbals and other supplements with you to your doctor s visit. Patients and families are reminded to discard old lists and to update any records with all medication providers or retail pharmacies. Education Materials Suture Care Stitches (sutures) are used to close wounds. Sutures also help stop bleeding and speed healing. To help your wound heal, follow the tips on this handout. Some sutures need to be removed by a healthcare provider. Others dissolve on their own. Sometimes strips of tape are used. You ll be told what kind of sutures you have. Keep sutures clean Avoid doing things that could cause dirt or sweat to get on your sutures. If needed, cover your sutures with a bandage (dressing) to protect them. Don t pick at scabs. They help protect the wound. Don t wash the area around your sutures unless your healthcare provider says it s OK. Then, follow his or her instructions for washing and drying. Keep sutures dry Keep your sutures out of water. Take a sponge bath to avoid getting your sutures wound wet, unless your healthcare provider tells you otherwise. Ask your provider when can you take a shower or bathe. Ask your provider about the best way to keep your sutures dry when bathing or showering. If sutures get damp, pat them dry. Changing your dressing Leave the dressing in place until you are told to remove it or change it. Change it only as directed, using clean hands: After the first ___hours, change your dressing every ___hours. Change your dressing if it gets wet or dirty. Other tips To help wounds on an arm or leg heal, use the affected limb as little as possible. To help reduce swelling and throbbing, raise the area with sutures above your heart. To help prevent itching, cover sutures with gauze. If sutures itch, try not to scratch them. For pain relief, try acetaminophen or ibuprofen. Don t use aspirin. It can increase bleeding. When to seek medical care Call your healthcare provider if you notice any of the following signs: Increased soreness, pain, or tenderness after 24 hours A red streak, increased redness, or puffiness near the wound White, yellowish, or bad smelling discharge from the wound Bleeding that can t be stopped by applying pressure Steri-Strips fall off or stitches dissolve before the wound heals Fever over 100.4 F (38.0 C) 9679-3384 [employer]. [address] [place] [address]. All rights reserved. This information is not intended as a substitute for professional medical care. Always follow yourhealthcare professional's instructions. Additional Information VACCINATE! IT SAVES LIVES! Members of the community who have not yet received the COVID-19 vaccine and would like to receive it can visit one of [facility] vaccine clinics. There are many vaccine clinic locations within the [facility]. For locations and available times, please visit [email or web address]. It is important to note that some COVID mobile vaccine clinics are held outdoors and may be canceled in rainy orstormy conditions. To learn more about pediatric vaccinations (ages 5-11), we invite you to visit the [facility] webpage. https://www.[email or web address]/pages/0821-Fiwsm-Hzlfespphsn-Bvosthgmjd-Kzyku-Uwy stions.htmlTo learn more about the COVID-19 vaccine, we invite you to visit the [facility] website for a list of frequently asked questions. [email or web address].[email or web address]/assets/Sluqimpl-eit-Imrjhaiq/obwwo-Rouphmg-Cmznubhkhi _Asked-Questions.pdf [facility] Patient Portal Access Instructions: Stay connected with your healthcare team and access your personal medical information anytime with the [facility] Patient Portal. If you would like a full copy of your medical records please contact the [facility] Medical Records Department Saturday through Saturday between 8a.m. and 4:30p.m. Please follow the directions below to access the portal: 1.Access the email account you provided upon registration to the community health systems.2.Look for an invitation email from [facility].3.Open the email and access the invitation link: Accept Invitation to [facility]4.Fill in the required wiley to create your account. Sign into [email or web address] with your username and password that you created in the above steps to stay up to date. You can then view a summary of results, a summary of your visits, and the ability to download your summaries to your computer or send the information securely to a physician. Remember that your healthcare information is confidential, so carefully consider who you will allow to register on the [facility] Patient Portal for access to your information. You can also access the [facility] Patient Portal on the [employer] anali. Simply click on Health Records under [employer] and then click on the [employer] logo. HOW TO SAFELY DISPOSE OF PRESCRIPTION MEDICATIONS Please use one of the following methods to safely dispose of your unused medications. 1.Use a drug disposal kit: the drug disposal pouch allows you to safely discard your old and unuseddrugs. Ask your nurse to give you one when you are discharged.2.Visit a local take-back location: Many local pharmacies and police departments have programs that collect old and unwanted prescriptiondrugs. Call your local pharmacy or go to http://[employer]/9O6Gj6z to find one close to you.3.Make use of household items: Use cat litter or old coffee grounds to dispose medications if other options arenot available. Mix your drugs with these household products, seal them in an airtight container andthrow it into the garbage. Call [facility]: [phone] to be sure your drugs can be disposed of in this way. Some medicines may require a different approach.4.Never flush your medications down the toilet. IF YOU HAVE BEEN PRESCRIBED AN OPIOIDS FOR PAIN If you have been prescribed an opioid (such as hydrocodone, oxycodone or morphine), it is critical to understand the possible side effects and risks of opioid pain medications. Even when taken as directed, opioids can have several side effects including: Tolerance, meaning you might need to take more of a medication for the same pain relief. Nausea, vomiting and/or constipation. Sleepiness, dizziness, dry mouth, confusion, depression or itching. Physical dependence, meaning you have withdrawal symptoms when a medication is stopped ? this can develop within a few days. KNOW YOUR RESPONSIBILITIES It is important to know exactly how much and how often to take the opioid pain medications you are prescribed. Never take opioids in higher amounts or more often than prescribed. Do not combine opioids with alcohol or other drugs that cause drowsiness, such as benzodiazepines, also known as benzos,including diazepam and alprazolam, muscle relaxants or sleep aids. Never sell or share prescriptionopioids. This is illegal. Store opioids in a secure place and out of reach of others (including children, family, friends and visitors). The last page(s) of this document has been signed and retained as a CHART COPY Signatures Patient Education Materials Suture Care Medication Leaflets My discharge plan and instructions have been reviewed and explained to me and I,MONICA PEPE understand my current condition and have read and understand these discharge instructions. I have received a written copy of the plan/instructions. If I have questions, I am aware that I should contact my doctor. Patient/[employer] Signature: Date/Time: Relationship to Patient: Witness Name/Signature: Date/Time: [facility] Emergency department Discharge summary Discharge Instructions Thank you for allowing [facility] to assist you with your healthcare needs. The following is importantdischarge information regarding your hospital visit. Diagnosis from Today's Visit Facial laceration Closed head injury Closed head injury without LOC What to Do Next Instructions from Your Care Team your stitches are absorbable. Your head CT was normal today. No qualifying data available. Post Acute Orders No qualifying data available. You Need to Schedule the Following Appointments Follow Up with BORIS AGUILA APRN, CNP When Within 2-4 days Where: [address] [place] [address]- Allergies codeine erythromycin Medications Please ask your primary doctor or pharmacist before taking any other medication not listed, including over the counter drugs, herbal medications, vitamins and or supplements as they may interact withyour home medications. What How Much When Instructions Last Dose Unchanged acetaminophen (acetaminophen 500 mg oral tablet) 2 tab(s) by mouth Three (3) times a day as needed for for pain Unchanged levothyroxine (levothyroxine 125 mcg (0.125 mg) oral tablet) 1 tab(s) by mouth Once a day Unchanged Misc Medication Grapeseed capsules. 2 caps daily Unchanged nystatin topical (nystatin 100,000 units/ g topical powder) 1 application Topical Three (3) times a day Unchanged warfarin (warfarin 2.5 mg oral tablet) 1 tab(s) by mouth Once a day Unchanged warfarin (warfarin 5 mg oral tablet) 1 tab(s) by mouth Once a day 5mg daily Please take this list to your next doctor s visit. Bring all medications you take, including over the counter medications, herbals and other supplements with you to your doctor s visit. Patients and families are reminded to discard old lists and to update any records with all medication providers or retail pharmacies. Education Materials Suture Care Stitches (sutures) are used to close wounds. Sutures also help stop bleeding and speed healing. To help your wound heal, follow the tips on this handout. Some sutures need to be removed by a healthcare provider. Others dissolve on their own. Sometimes strips of tape are used. You ll be told what kind of sutures you have. Keep sutures clean Avoid doing things that could cause dirt or sweat to get on your sutures. If needed, cover your sutures with a bandage (dressing) to protect them. Don t pick at scabs. They help protect the wound. Don t wash the area around your sutures unless your healthcare provider says it s OK. Then, follow his or her instructions for washing and drying. Keep sutures dry Keep your sutures out of water. Take a sponge bath to avoid getting your sutures wound wet, unless your healthcare provider tells you otherwise. Ask your provider when can you take a shower or bathe. Ask your provider about the best way to keep your sutures dry when bathing or showering. If sutures get damp, pat them dry. Changing your dressing Leave the dressing in place until you are told to remove it or change it. Change it only as directed, using clean hands: After the first ___hours, change your dressing every ___hours. Change your dressing if it gets wet or dirty. Other tips To help wounds on an arm or leg heal, use the affected limb as little as possible. To help reduce swelling and throbbing, raise the area with sutures above your heart. To help prevent itching, cover sutures with gauze. If sutures itch, try not to scratch them. For pain relief, try acetaminophen or ibuprofen. Don t use aspirin. It can increase bleeding. When to seek medical care Call your healthcare provider if you notice any of the following signs: Increased soreness, pain, or tenderness after 24 hours A red streak, increased redness, or puffiness near the wound White, yellowish, or bad smelling discharge from the wound Bleeding that can t be stopped by applying pressure Steri-Strips fall off or stitches dissolve before the wound heals Fever over 100.4 F (38.0 C) 6298-9043 [employer]. [address] [place] [address]. All rights reserved. This information is not intended as a substitute for professional medical care. Always follow yourhealthcare professional's instructions. Additional Information VACCINATE! IT SAVES LIVES! Members of the community who have not yet received the COVID-19 vaccine and would like to receive it can visit one of [facility] vaccine clinics. There are many vaccine clinic locations within the [facility]. For locations and available times, please visit [email or web address]. It is important to note that some COVID mobile vaccine clinics are held outdoors and may be canceled in rainy orstormy conditions. To learn more about pediatric vaccinations (ages 5-11), we invite you to visit the [facility] webpage. https://www.[email or web address]/pages/9706-Zsduo-Nmowbcefwuy-Ikmftmeznb-Oizoe-Ani stions.htmlTo learn more about the COVID-19 vaccine, we invite you to visit the [facility] website for a list of frequently asked questions. https://[email or web address].[email or web address]/assets/Pswafbpk-mtg-Pckoricx/zfxxh-Oefntsz-Glbqwkdonl _Asked-Questions.pdf [facility] Patient Portal Access Instructions: Stay connected with your healthcare team and access your personal medical information anytime with the [facility] Patient Portal. If you would like a full copy of your medical records please contact the [facility] [facility] Saturday through Saturday between 8a.m. and 4:30p.m. Please follow the directions below to access the portal: 1.Access the email account you provided upon registration to the community health systems.2.Look for an invitation email from [facility].3.Open the email and access the invitation link: Accept Invitation to [facility]4.Fill in the required wiley to create your account. Sign into [email or web address] with your username and password that you created in the above steps to stay up to date. You can then view a summary of results, a summary of your visits, and the ability to download your summaries to your computer or send the information securely to a physician. Remember that your healthcare information is confidential, so carefully consider who you will allow to register on the [facility] Patient Portal for access to your information. You can also access the [facility] Patient Portal on the [employer]. Simply click on Health Records under [employer] and then click on the [employer] logo. HOW TO SAFELY DISPOSE OF PRESCRIPTION MEDICATIONS Please use one of the following methods to safely dispose of your unused medications. 1.Use a drug disposal kit: the drug disposal pouch allows you to safely discard your old and unuseddrugs. Ask your nurse to give you one when you are discharged.2.Visit a local take-back location: Many local pharmacies and police departments have programs that collect old and unwanted prescriptiondrugs. Call your local pharmacy or go to http://[employer]/9I8Dm9r to find one close to you.3.Make use of household items: Use cat litter or old coffee grounds to dispose medications if other options arenot available. Mix your drugs with these household products, seal them in an airtight container andthrow it into the garbage. Call [facility]: [phone] to be sure your drugs can be disposed of in this way. Some medicines may require a different approach.4.Never flush your medications down the toilet. IF YOU HAVE BEEN PRESCRIBED AN OPIOIDS FOR PAIN If you have been prescribed an opioid (such as hydrocodone, oxycodone or morphine), it is critical to understand the possible side effects and risks of opioid pain medications. Even when taken as directed, opioids can have several side effects including: Tolerance, meaning you might need to take more of a medication for the same pain relief. Nausea, vomiting and/or constipation. Sleepiness, dizziness, dry mouth, confusion, depression or itching. Physical dependence, meaning you have withdrawal symptoms when a medication is stopped ? this can develop within a few days. KNOW YOUR RESPONSIBILITIES It is important to know exactly how much and how often to take the opioid pain medications you are prescribed. Never take opioids in higher amounts or more often than prescribed. Do not combine opioids with alcohol or other drugs that cause drowsiness, such as benzodiazepines, also known as benzos,including diazepam and alprazolam, muscle relaxants or sleep aids. Never sell or share prescriptionopioids. This is illegal. Store opioids in a secure place and out of reach of others (including children, family, friends and visitors). The last page(s) of this document has been signed and retained as a CHART COPY Signatures Patient Education Materials Suture Care Medication Leaflets My discharge plan and instructions have been reviewed and explained to me and I,MONICA PEPE understand my current condition and have read and understand these discharge instructions. I have received a written copy of the plan/instructions. If I have questions, I am aware that I should contact my doctor. Patient/[employer] Signature: Date/Time: Relationship to Patient: Witness Name/Signature: Date/Time: [facility]10-01-2022 Note ORIGINAL EXAMINATION: CT OF THE HEAD WITHOUT CONTRAST 11/25/2021 4:37 pm TECHNIQUE: CT of the head was performed without the administration of intravenous contrast. Automated exposure control, iterative reconstruction, and/or weight based adjustment of the mA/kV was utilized to reduce the radiation dose to as low as reasonably achievable. COMPARISON: None. HISTORY: ORDERING SYSTEM PROVIDED HISTORY: Reason for Exam: pain; trauma patient FINDINGS: BRAIN/VENTRICLES: There is no acute intracranial hemorrhage, mass effect or midline shift. No abnormal extra-axial fluid collection. The fuentse-white differentiation is maintained without evidence of an acute infarct. There is no evidence of hydrocephalus. There are nonspecific hypoattenuating foci in the subcortical and periventricular white matter that most likely represent chronic microangiopathic ischemic changes in a patient of this age. ORBITS: The visualized portion of the orbits demonstrate no acute abnormality. SINUSES: The visualized paranasal sinuses and mastoid air cells demonstrate no acute abnormality. SOFT TISSUES/SKULL: No acute abnormality of the visualized skull or soft tissues. Degenerative left TMJ. IMPRESSION: No acute intracranial hemorrhage. Interpreted by: Enrique Arriaga Preliminary Report By: Enrique Arriaga Electronically signed By Enrique Arriaga Dictated Date: 11/25/2021 4:39:35 PM Prelim Date: 11/25/2021 4:42:01 PM Sign Date: 11/25/2021 4:42:01 PM Ordering Provider[facility] Note ORIGINAL EXAMINATION: CT OF THE HEAD WITHOUT CONTRAST 11/25/2021 4:37 pm TECHNIQUE: CT of the head was performed without the administration of intravenous contrast. Automated exposure control, iterative reconstruction, and/or weight based adjustment of the mA/kV was utilized to reduce the radiation dose to as low as reasonably achievable. COMPARISON: None. HISTORY: ORDERING SYSTEM PROVIDED HISTORY: Reason for Exam: pain; trauma patient FINDINGS: BRAIN/VENTRICLES: There is no acute intracranial hemorrhage, mass effect or midline shift. No abnormal extra-axial fluid collection. The fuentes-white differentiation is maintained without evidence of an acute infarct. There is no evidence of hydrocephalus. There are nonspecific hypoattenuating foci in the subcortical and periventricular white matter that most likely represent chronic microangiopathic ischemic changes in a patient of this age. ORBITS: The visualized portion of the orbits demonstrate no acute abnormality. SINUSES: The visualized paranasal sinuses and mastoid air cells demonstrate no acute abnormality. SOFT TISSUES/SKULL: No acute abnormality of the visualized skull or soft tissues. Degenerative left TMJ. IMPRESSION: No acute intracranial hemorrhage. Interpreted by: Enrique Arriaga Preliminary Report By: Enrique Arriaga Electronically signed By Enrique Arriaga Dictated Date: 11/25/2021 4:39:35 PM Prelim Date: 11/25/2021 4:42:01 PM Sign Date: 11/25/2021 4:42:01 PM [facility]ing [facility] + Plan note Future Scheduled Tests Radiology* MA Mammo Screening Bilateral w/ Phi 10/06/21 * MA Mammo Screening Bilateral w/ Phi 09/18/21 * XR Foot Minimum 3 Views Left 11/28/20 [facility] 01-27-2022 HCoV 229E RNA SUNITA+non-probe Ql (Nph)Not Detected *NA* (03/23/21 12:00 PM) Auto Viro/Sero [id number] HCoV 229E RNA SUNITA+non-probe Ql (Nph)Not Detected *NA* (02/10/21 2:41 PM) Auto Viro/Sero [id number] HCoV OC43 RNA SUNITA+non-probe Ql (Nph)Detected *ABN* (02/10/21 2:41 PM) Auto Viro/Sero SSEvaluation + Plan note Future Appointments Appointment Date:02/21/2021 11:45:00 AM Scheduled Provider: [facility] Appointment Type:PC Nurse Protime Future Scheduled Tests Laboratory* Thyroid Stimulating Hormone 03/22/21 * Free T4 03/22/21 * Vitamin D Level 03/22/21 Radiology* XR Foot Minimum 3 Views Left 11/28/20 [facility] Evaluation + Plan note Future Appointments Appointment Date:03/24/2021 11:45:00 AM Scheduled Provider: [facility] Appointment Type:PC Nurse Protime Future Scheduled Tests Laboratory* Thyroid Stimulating Hormone 03/22/21 * Free T4 03/22/21 * Vitamin D Level 03/22/21 Radiology* XR Foot Minimum 3 Views Left 11/28/20 [facility] Evaluation + Plan note Future Appointments Appointment Date:10/25/2022 07:40:00 AM Scheduled Provider:BORIS AGUILA APRN, CNP Location:[facility] Appointment Type:PC OV Future Scheduled Tests Radiology* XR Orbits Minimum 4 Views 12/09/21 [facility] Hospital course Narrative No data available for this section [facility] Discharge instructions No data available for this section [facility] Progress note No data available for this section [facility] Summary Purpose Family History No Family History Records Found Advance Directives No Advanced Directives Records Found Additional Source Comments Care Team (unrecognized sect ion and content) Care Team Personnel Name: Roberth Maradiaga PT Position: P3 Scheduling - Playground Attendant Advanced Member Role: Other Name: BORIS AGUILA APRN, CNP Position: P4 Advanced Practice Nurse Med Service: Employed Provider Member Role: Primary Care Physician Address: Address: [address] [place] [address] Care Team Related Persons Name: GERARDO DAVIS Name: MATTHEW PEPE Name: MATTEHW PEPE Patient Care team informatio n (unrecognized section and content) Care Team Personnel Name: Roberth Maradiaga PT Position: P3 Scheduling - Playground Attendant Advanced Member Role: Other Name: BORIS AGUILA APRN, CNP Position: P4 Advanced Commercial Intern Member Role: Primary Care Physician Address: Address: [address] [place] [address] Care Team Related Persons Name: GERARDO DAVIS Name: MATTHEW PEPE Address: Home [address] [place] [phone] Name: MATTHEW PEPE Care Team Personnel Name: Roberth Maradiaga Cledulce Payan PT Position: P3 Scheduling - Playground Attendant Advanced Member Role: Other Name: BORIS AGUILA APRN, CNP Position: P4 Advanced Commercial Intern Member Role: Primary Care Physician Address: Address: [address] [place] [phone] [place] Care Team Related Persons Name: GERARDO DAVIS Name: MATTHEW PEPE Address: [address], [phone] Name: MATTHEW PEPE Care Team Personnel Name: Ashwini Wire Bound Box Machine Operator Ora PT Position: P3 Scheduling - Playground Attendant Advanced Member Role: Other Name: BORIS AGUILA GEOSPATIAL SYSTEMS INTEGRATOR - COMMERCIAL INTELLIGENCE MANAGER Position: P4 Advanced Commercial Intern Member Role: Primary Care Physician Address: Address: [address] [place] [phone] [place] Care Team Related Persons Name: GERARDO DAVIS Name: MATTHEW PEPE Name: MATTHEW PEPE Address: [address], [phone] INFORMATION SOURCE (unrecogn ized section and content) FOR RECORDS PERTAINING TO PATIENTS WHO ARE OR HAVE BEEN ENROLLED IN A CHEMICAL DEPENDENCY/SUBSTANCEABUSE PROGRAM, SOME INFORMATION MAY BE OMITTED. This clinical summary was aggregated from multiple sources. Caution should be exercised in using it in the provision of clinical care. This summary normalizes information from multiple sources, and as a consequence, information in this document may materially change the coding, format and clinical context of patient data. In addition, data may be omitted in some cases. CLINICAL DECISIONS SHOULD BE BASED ON THE PRIMARY CLINICAL RECORDS. [employer] [facility]. provides no warranty or guarantee of the accuracy or completeness of information in this document.
== END | disposition home or self-care (01) ==
PROVIDERS: PCP Nurse Practitioner Family; Referring Provider Nurse Practitioner Family; Visit Provider Nurse Practitioner Family
DX: E03.9 Hypothyroidism, unspecified (principal); E55.9 Vitamin D deficiency, unspecified
CPT/HCPCS: 36415; 82306; 84439; 84443

== ENCOUNTER 2023-05-13 15:24 | Emergency (ER) | payer BC, SELFPAY ==
[2023-05-13 15:24] VITALS: BP 178/95; PULSE 86; RESP 18; TEMP 36.1; O2SAT 100; BMI 49.0
--- NOTE | 2023-05-13 16:24 | CT_ITS ---
STUDY: CT BRAIN WITHOUT CONTRAST REASON FOR EXAM: Female, 62 years old. head trauma RADIATION DOSAGE (If Supplied By Facility): CTDIvol = ( 44.99 ) mGy, DLP = ( 796.11 ) mGycm TECHNIQUE: Transaxial CT imaging of the brain was performed without administration of intravenous contrast material. Individualized dose optimization techniques were used for this CT. COMPARISON: No relevant priors. FINDINGS: Soft tissue swelling overlying the parietal bones without associated skull fracture or acute intracranial hemorrhage Probable prominent perivascular space in left medial temporal lobe Normal size ventricles and extra-axial spaces for the patient''s age. Normal white matter tracts of the cerebral hemispheres. Normal basal ganglia and thalami. Normal brainstem. Normal cerebellum. Partial empty sella deformity likely of no significance. There is no intracranial hemorrhage. There are no findings of an acute ischemic infarction. Normal visualized paranasal sinuses. CT/Brain/Head without Contrast IMPRESSION: Soft tissue swelling of the scalp overlying the parietal bones without fracture or acute intracranial bleed Electronically Signed: Sanford Ro MD at 17:11 EDT Reading Location ID and State: [facility] / [place] Tel , Service support ,
--- NOTE | 2023-05-13 16:24 | EX.ED.GENINJ ---
HPI History of Present Illness Chief Complaint: Head Injury Narrative Narrative: 62-year-old female on Coumadin presenting with head injury. She states she was walking on a small ramp and slipped and fell. She landed on her buttocks initially and then hit her head. No LOC. No dizziness,, lightheadedness, nauseous, visual complaints. She is ambulating stably. Patient states she came for CT of her brain because she hit her head she is on anticoagulation. Patient denies neck pain. Denies other injury. PFSH PFSH Medical History DVT (deep venous thrombosis) Hypothyroidism Kidney stones Retinal tear Home Medications cholecalciferol (vitamin D3) 50 mcg (2,000 unit) tablet (D3 DOTS) 50 mcg PO BID 05/13/23 [History Last Taken Unknown] levothyroxine 125 mcg tablet 125 mcg PO DAILY 05/13/23 [History Last Taken Unknown] phenazopyridine 95 mg tablet (Azo Urinary Pain Relief) 95 mg PO Q8H 05/13/23 [History Last Taken Unknown] phenazopyridine 99.5 mg tablet (Azo Urinary Pain Relief) 199 mg PO DAILY 05/13/23 [History Last Taken Unknown] warfarin 5 mg tablet 7.5 mg PO DAILY 05/13/23 [History Last Taken Unknown] Allergy/AdvReac Type Severity Reaction Status Date / Time latex Allergy Mild Rash Verified 05/13/23 15:27 erythromycin base AdvReac Mild Vomiting Verified 05/13/23 15:27 codeine AdvReac Upset Verified 05/13/23 15:27 Stomach Surgical History H/O tubal ligation H/O: hysterectomy History of cholecystectomy History of right oophorectomy Hx of appendectomy Social History Smoking Status: Never smoker ROS ROS ED Constitutional Constitutional ED: Denies chills, fever(s) or sweats Eyes Eyes: Denies blurry vision or change in vision ENT ENT ED: Denies ear pain or sore throat Cardiovascular Cardiovascular: Denies chest pain, palpitations or racing heartbeat Respiratory/Chest Respiratory/Chest: Denies cough, dyspnea or sputum Gastrointestinal Gastrointestinal: Denies abdominal pain, constipation, diarrhea, nausea or vomiting Genitourinary Genitourinary ED: Denies dysuria, hematuria or urinary frequency Musculoskeletal Musculoskeletal: Denies arthralgias, myalgias or neck pain Integumentary Denies abscess, Abrasions or rash Neurologic Neurologic: Reports headache(s); Denies paresthesias or weakness Psychiatric Psychiatric: Denies anxiety, depression, suicidal ideation or suicidal thoughts Endocrine Endocrinology: Denies polydipsia or polyuria EXAM Physical Exam Const Vital Signs: 05/13/23 15:24 05/13/23 15:49 Temperature 96.9 F L Temperature Source Temporal Pulse Rate 86 Respiratory Rate 18 Respiratory Effort Normal Respiratory Depth Normal Respiratory Pattern Normal Blood Pressure 178/95 H Blood Pressure Mean 122 Pulse Ox 100 Oxygen Delivery Method Room Air Room Air Positive well nourished General Appearance ED: NAD HEENT atraumatic Eyes PERRL and EOMs intact bilaterally Chest Wall inspection of chest normal Resp normal respiratory effort and clear to auscultation bilaterally Auscultation: Negative for rales, rhonchi or wheezes Cardio regular rhythm Extremity normal to inspection Neuro oriented x3, CN's II-XII intact bilaterally, moves all extremities, no focal motor deficits, no sensory deficits noted and gait normal Neuro Narrative: No focal neurologic deficits or lateralizing signs or symptoms Sensorium / Orientation: alert Motor Exam: strength 5/5 throughout Skin no rashes or lesions noted MDM MDM MDM Narrative Medical decision making narrative: Difficult headache although she does have mild 1. No nauseousness, dizziness, lightheadedness, visual complaints.Patient presents with head injury. She had a mechanical fall. She is at baseline. Will obtain CT brain. Patient declines analgesia or antiemetics. CT of the brain is negative. Patient counseled on findings. Return precautions discussed. Stable discharge. Impression: 1. Close head injury 2. Mechanical fall Radiography Diagnostic Testing: Clinical Impression(s) from Imaging Studies Brain CT 05/13/23 16:24 IMPRESSION: Soft tissue swelling of the scalp overlying the parietal bones without fracture or acute intracranial bleed Electronically Signed: Sanford Ro MD at 17:11 EDT Reading Location ID and State: [facility] / [place] Tel , Service support , Discharge Plan Triage Chief Complaint: Head Injury ED Provider: Erwin,Murphy Dx/Rx/DC Orders Instructions: ED Head Injury (Adult) Prescriptions: No Action levothyroxine 125 mcg tablet 125 mcg PO DAILY warfarin 5 mg tablet 7.5 mg PO DAILY Patient Comments: SUN, MON, WED, FRI TAKE 5 MG; , , SAT TAKE 7.5 MG phenazopyridine [Azo Urinary Pain Relief] 95 mg tablet 95 mg PO Q8H cholecalciferol (vitamin D3) [D3 DOTS] 50 mcg (2,000 unit) tablet 50 mcg PO BID Azo Urinary Pain Relief 99.5 mg tablet 199 mg PO DAILY Primary Care Provider: Ceferino Cam NP Referrals: Ceferino Cam NP, FOOD SERVICE DRIVER-C [Primary Care Provider] - Disposition Disposition: Home, Self Care
[2023-05-13 17:24] VITALS: BP 148/78; PULSE 70; RESP 16; TEMP 36.5; O2SAT 96
== END 2023-05-13 17:27 | disposition home or self-care (01) ==
PROVIDERS: Emergency Provider Student in an Organized Health Care Education/Training Program; PCP Nurse Practitioner Family; Visit Provider Student in an Organized Health Care Education/Training Program
DX: S09.90XA Unspecified injury of head, initial encounter (principal); W10.2XXA Fall (on)(from) incline, initial encounter; Z86.718 Personal history of other venous thrombosis and embolism; Z79.01 Long term (current) use of anticoagulants; Y93.01 Activity, walking, marching and hiking; E03.9 Hypothyroidism, unspecified; Z79.899 Other long term (current) drug therapy; Z98.51 Tubal ligation status; Z90.710 Acquired absence of both cervix and uterus; Z90.49 Acquired absence of other specified parts of digestive tract; Z90.721 Acquired absence of ovaries, unilateral
CPT/HCPCS: 70450; 99282

== ENCOUNTER → 2023-10-22 | Outpatient (CLI) | payer BC, SELFPAY ==
[2023-10-22 12:53] LABS: Hematocrit 43.2 % (37-47); Hemoglobin 13.4 g/dL (12.0-15.0); Mean Corpuscular Hgb 27.5 pg (27.0-32.0); Mean Corpuscular Volume 88.7 fL (81-99); Platelet Count 186 K/mm3 (150-450); RBC Distribution Width CV 12.9 % (11.6-14.6); RBC Distribution Width SD 41.8 fl (35.1-43.9); Red Blood Count 4.87 M/mm3 (4.2-5.4); White Blood Count 4.2 K/mm3 (4.4-11.0)
[2023-10-22 13:35] LABS: Vitamin D,25 Hydroxy 47.4 ng/mL
[2023-10-22 14:00] LABS: ALB/GLOB Ratio 0.9 RATIO (0.9-2.4); AST(SGOT) 21 U/L (15-37); Alanine Aminotransfer ALT/SGPT 26 U/L (13-56); Albumin, Serum 3.4 g/dL (3.2-5.0); Alkaline Phosphatase 67 U/L (45-117); Anion Gap 6 (5-15); BUN 15 mg/dL (7-18); BUN/Creat Ratio 16.2 RATIO (10-20); Chloride 107 mmol/L (98-107); Cholesterol 178 mg/dL (200); Creatinine, Serum 0.92 mg/dL (0.55-1.02); EST Glomerular Filtration Rate 66 mL/min (>60); Est Glom Filt Rate - Afr Amer 79 mL/min (>60); Globulin 3.7 g/dL (2.2-4.2); Glucose 97 mg/dL (74-106); High Density Lipoprotein 59 mg/dL; Potassium 4.3 mmol/L (3.5-5.1); Protein, Total 7.1 g/dL (6.4-8.2); Sodium Level 141 mmol/L (136-145); Triglycerides 89 mg/dL; Very Low Density Lipoprotein 18 mg/dL (5-40)
== END | disposition home or self-care (01) ==
LOC: MTLAB 10:00
PROVIDERS: PCP Nurse Practitioner Family; Referring Provider Nurse Practitioner Family; Visit Provider Nurse Practitioner Family
DX: E03.9 Hypothyroidism, unspecified (principal); E55.9 Vitamin D deficiency, unspecified; Z13.0 Encounter for screening for diseases of the blood and blood-forming organs and certain disorders involving the immune mechanism
CPT/HCPCS: 36415; 80053; 80061; 82306; 83036; 84439; 84443; 85027

== ENCOUNTER → 2024-04-23 | Outpatient (CLI) | payer BC, SELFPAY ==
[2024-04-23 14:08] LABS: Vitamin D,25 Hydroxy 46.4 ng/mL (30-100)
== END | disposition home or self-care (01) ==
LOC: MTLAB 08:56
PROVIDERS: PCP Nurse Practitioner Family; Referring Provider Nurse Practitioner Family; Visit Provider Nurse Practitioner Family
DX: E03.9 Hypothyroidism, unspecified (principal); E55.9 Vitamin D deficiency, unspecified
CPT/HCPCS: 36415; 82306; 84439; 84443

== ENCOUNTER → 2024-08-20 | Outpatient (CLI) | payer BC, SELFPAY ==
--- NOTE | 2024-08-20 07:16 | BI_ITS ---
EXAM: SCRN MAMM (CAD)W/WOLF BILAT DATE: 08/20/2024 CLINICAL HISTORY: F, Age 63 y/o , SCREENING Sister with breast cancer. History of prior bilateral breast reduction surgery and right stereotactic breast biopsy. TECHNIQUE: SCRN MAMM (CAD)W/WOLF BILAT COMPARISON: Prior exam(s) dated December 05, 2022.. FINDINGS: TISSUE DENSITY: There are scattered areas of fibroglandular density. Bilateral Breast Mammographic Findings: No significant masses, calcifications or other abnormalities are identified. A tissue clip marker is once again seen in the deep upper slightly central portion of the left breast in keeping with prior biopsy. Stable bilateral fat containing axillary lymph nodes. No suspicious masses, areas of developing architectural distortion, or suspicious calcifications. There has been no significant interval change. BI/SCRN MAMM (CAD)W/WOLF BILAT IMPRESSION: Stable examination. OVERALL FINAL ASSESSMENT BI-RADS 2: BENIGN RECOMMEND ANNUAL MAMMOGRAPHIC SCREENING. RECOMMENDATION: Routine annual follow-up in 1 Year A letter with findings and recommendations will be mailed to the patient. Reading Location: [id number]
--- OUTSIDE RECORDS SUMMARY | 2024-08-20 07:17 | XMS RPT_ITS | CCD ---
Author Organization [facility] Care Team Providers Care Industrial Truck Driver Name Role Phone DORINA TILLER MAN - HOSPITALITY SERVICES MANAGER, CEFERINO Yoder Primary Care Phys ician Ashwini PT, Ora Unavailable Unavailable DORINA TILLER MAN - HOSPITALITY SERVICES MANAGER, CEFERINO Yoder Attending U navailable DORINA TILLER MAN - HOSPITALITY SERVICES MANAGER, CEFERINO Yoder Primary Care U navailable SUPPAN DPM, COLLEEN Green Attending Unavailable DORINA TILLER MAN - HOSPITALITY SERVICES MANAGER, CEFERINO Yoder Primary Care U navailable SUPPAN DPM, COLLEEN Green Attending Unavailable DORINA TILLER MAN - HOSPITALITY SERVICES MANAGER, CEFERINO Yoder Primary Care U navailable PAT MIRANDA, NELSON Salazar Attending Unavail able DORINA TILLER MAN - HOSPITALITY SERVICES MANAGER, CEFERINO Yoder Primary Care U navailable Archer SAP MANAGER, Ceferino Urias Referring Unav ailable Archer SAP MANAGER, Ceferino Urias Primary Care Unav ailable Dorina SAP MANAGER, Ceferino Urias Attending Unav ailable Archer SAP MANAGER, Ceferino Urias Attending Unav ailable Archer SAP MANAGER, Ceferino Urias Referring Unav ailable Dorina SAP MANAGER, Ceferino Urias Primary Care Unav ailable Murhpy Hood Attending Unavailable Archer SAP MANAGER, Ceferino Urias Primary Care Unav ailable Archer SAP MANAGER, Ceferino Urias Referring Unav ailable [place]oodhouse SAP MANAGER, Zaria Attending Unavailable Archer SAP MANAGER, Ceferino Urias Primary Care Unav ailable Archer SAP MANAGER-C, Ceferino Urias Primary Care Provi calixto Dorina SAP MANAGER-C, Ceferino Urias Attending Provider Dorina SAP MANAGER-C, Ceferino Urias Referring Provider Allergies Allergy Classification Reported Allergen(s) Allergy Type Date of Onset Reaction(s) Facility (8 sources) Codeine; Translations: [codeine] Drug Allergy [address] [facility] (8 sources) Erythromycin; Translations: [erythromycin] Drug Allergy [address] [facility] (2 sources) Latex Allergy to substance 4 Rash [facility] (1 source) Codeine Drug Allergy 4 [facility] (1 source) Erythromycin Drug Allergy 4 [facility] (1 source) Latex Drug allergy (disorder) 4 [facility] Medications Current Medications Medication Drug Class(es) Dates [...] tab(s), 0 Refill(s), 02/15/21 9:06:00 EST, Pharmacy: [facility], URI (upper respiratory infection), 160, cm, 11/28/20 11:22:00 EDT, Height, 122.7, kg, 11/28/20... Start Date: 02/10/21 Stop Date: 02/15/21 Status: Ordered AZO Urinary Pain Relief Max Strength (3 sources) Start: 12-04-2021 AZO Urinary Pain Relief Max Strength Oral, TIDPC, 0 Refill(s) Start Date: 12/04/21 Status: Ordered cholecalciferol 0.05 mg oral tablet (2 sources) Vitamin D Start: 05-13-2023 Cholecalciferol (Vitamin D3) (D3 Dots) 50 mcg (2,000 unit) tablet Active 50 ug PO TWICE A DAY May 13, 2023 12:00am dexamethasone 6 mg oral tablet (1 source) Corticosteroid Start: 03-23-2021 End: 03-30-2021 dexamethasone 6 mg oral tablet Dose : 6 mg = 1 tab(s), Oral, qDay, X 7 day(s), # 7 tab(s), 0 Refill(s), 03/30/21 10:07:00 EST, Pharmacy: [facility], Acute sinusitis, unspecified, 160, cm, [...] tab(s), 0 Refill(s), 04/02/21 10:07:00 EST, Pharmacy: [facility], Acute sinusitis, unspecified, 160, cm, [...] tab(s), 0 Refill(s), 03/30/21 10:07:00 EST, Pharmacy: [facility], Acute sinusitis, unspecified, 160, cm, 03/23/21 9:14:00 EST, Height, 122.7, kg, 03/23/21 9:14:00 EST, Dosing Weight Start Date: 03/23/21 Stop Date: 03/30/21 Status: Ordered levothyroxine sodium 0.125 mg oral tablet (8 sources) l-Thyroxine Start: 05-13-2023 take 1 tablet by mouth once daily Levothyroxine 125 mcg tablet Active 125 ug PO DAILY May 13, 2023 12:00am Start: 09-28-2022 levothyroxine 125 mcg (0.125 mg) oral tablet Dose : 125 mcg = 1 tab(s), Oral, qDay, # 30 tab(s), 0 Refill(s), [facility]acy: [id number], 160, cm, 05/31/22 11:55:00 EDT, Height, kg, 05/31/22 11:55:00 EDT, Dosing Weight Start Date: 09/28/22 Status: Ordered Start: 04-24-2021 levothyroxine 125 mcg (0.125 mg) oral tablet Dose : 125 mcg = 1 tab(s), Oral, qDay, # 30 tab(s), 6 Refill(s), Pharmacy: [facility], 160, cm, 03/23/21 9:14:00 EST, Height, kg, 03/23/21 9:14:00 EST, Dosing Weight Start Date: 04/24/21 Status: Ordered Start: 04-07-2020 End: 01-02-2021 levothyroxine 125 mcg (0.125 mg) oral tablet Dose : 125 mcg = 1 tab(s), Oral, qDay, # 90 tab(s), 2 Refill(s), Pharmacy: [facility], 158, cm, 04/07/20 8:30:00 EST, Height, kg, 04/07/20 8:30:00 EST, Dosing Weight Start Date: 04/07/20 Stop Date: 01/02/21 Status: Ordered nystatin 100 unt/mg topical powder (4 sources) Polyene Antifungal Start: 06-18-2022 nystatin 10 0,000 units/g topical powder Apply 1 anali, Topical, TID, # 60 gram(s), 1 Refill(s), Pharmacy: [facility], Powder, 160, cm, 05/31/22 11:55:00 EDT, Height, 120.4, kg, 05/31/22 11:55:00 EDT, Dosing Weight Start Date: 06/18/22 Status: Ordered Start: 11-24-2020 nystatin 100,0 00 units/g topical powder Apply 1 anali, Topical, TID, # 60 gram(s), 3 Refill(s), Pharmacy: [facility], Powder, 160, cm, 09/27/20 5:18:00 EDT, Height, 122.7, kg, 09/27/20 5:18:00 EDT, Dosing Weight Start Date: 11/24/20 Status: Ordered nystatin 100,000 units/g topical powder (2 sources) Start: 11-24-2020 nystatin 100,0 00 units/g topical powder Apply 1 anali, Topical, TID, # 60 gram(s), 3 Refill(s), Pharmacy: [facility], Powder, 160, cm, 09/27/20 5:18:00 EDT, Height, 122.7, kg, 09/27/20 5:18:00 EDT, Dosing Weight Start Date: 11/24/20 Status: Ordered phenazopyridine hydrochloride 95 mg oral tablet (4 sources) Start: 05-13-2023 take 1 tablet by mouth every eight hours Phenazopyridine (Azo Urinary Pain Relief) 95 mg tablet Active 95 mg PO Q8H May 13, 2023 12:00am Start: 05-13-2023 Phenazopyridin e (Azo Urinary Pain Relief) 99.5 mg tablet Active 199 mg PO DAILY May 13, 2023 12:00am Vitamin D3 50 mcg (2000 intl units) oral capsule (3 sources) Start: 04-13-2022 Vitamin D3 50 mcg (2000 intl units) oral capsule Dose : 200 mcg = 4 cap(s), Oral, Every other day, 0 Refill(s) Start Date: 04/13/22 Status: Ordered warfarin sodium 5 mg oral tablet (12 sources) Vitamin K Antagonist Start: 05-13-2023 take 7.5 mg by mouth once daily Warfarin 5 mg tablet Active 7.5 mg PO DAILY May 13, 2023 12:00am Start: 05-13-2023 take 7.5 mg by mouth once janneth y Warfarin Active 7.5 MG PO DAILY May 13, 2023 12:00am Start: 06-18-2022 warfarin 2.5 m g oral tablet Dose : 2.5 mg = 1 tab(s), Oral, qDay, # 90 tab(s), 1 Refill(s), Pharmacy: [facility], 160, cm, 04/06/23 11:55:00 EDT, Height, kg, 05/31/22 11:55:00 EDT, Dosing Weight Start Date: 06/18/22 Status: Ordered Start: 06-18-2022 take 1 tablet by mouth once da filomena warfarin 5 mg oral tablet Dose : 5 mg = 1 tab(s), Oral, qDay, 5mg daily, # 90 tab(s), 1 Refill(s), Pharmacy: [facility], 160, cm, 05/31/22 11:55:00 EDT, Height, kg, 05/31/22 11:55:00 EDT, Dosing Weight Start Date: 06/18/22 Status: Ordered Start: 10-26-2021 warfarin 2.5 m g oral tablet Dose : 2.5 mg = 1 tab(s), Oral, qDay, # 30 tab(s), 3 Refill(s), Pharmacy: [facility], 160, cm, 10/06/21 11:18:00 EDT, Height Start Date: 10/26/21 Status: Ordered Start: 10-26-2021 take 1 tablet by mouth once da filomena warfarin 5 mg oral tablet Dose : 5 mg = 1 tab(s), Oral, qDay, 5mg daily, # 30 tab(s), 6 Refill(s), Pharmacy: [facility], 160, cm, 10/06/21 11:18:00 EDT, Height, kg, 10/06/21 11:18:00 EDT, Dosing Weight Start Date: 10/26/21 Status: Ordered Start: 08-01-2020 warfarin 5 mg oral tablet Dose : 5 mg = 1 tab(s), Oral, qDay, 5mg daily except 7.5mg Fridays, # 40 tab(s), 6 Refill(s), Pharmacy: [facility], 158, cm, 04/07/20 8:30:00 EST, Height, kg, 04/07/20 8:30:00 EST, Dosing Weight Start Date: 08/01/20 Status: Ordered Completed/Discontinued Medications Medication Drug Class(es) Dates Sig (Normalized) Sig (Original) [facility] Medication (6 sources) Start: 09-17-2019 Misc Medication Grapeseed capsules. 2 caps daily, 0 Refill(s), 120.8 Start Date: 09/17/19 Status: Ordered Problems Active Problems Problem Classification Problem Date Documented Da [...] control - finding 09-28-2021 Episodic Thyroid disorders (11 sources) Hypothyroidism; Translations: [Hypothyroidism, unspecified] Onset: 10-04-2022 08-21-2019 Chronic Unclassified (20 sources) Patient encounter status 08-21-2019 Unclassified (4 sources) Anticoagulant effect 09-28-2021 Unclassified (3 sources) Vaccination needed 06-08-2022 Urinary tract infections (9 sources) Recurrent urinary tract infection 09-19-2020 Episodic Varicose veins of lower extremity (6 sources) Varicose veins of lower extremity 03-06-2019 Episodic Past or Other Problems Problem Classification Problem Date Documented Da te Episodic/Chronic Other injuries and conditions due to external causes (1 source) Unspecified injury of head, initial encounter; Translations: [Unspecified injury of head, initial encounter] Onset: 05-17-2023 Episodic Results Test Name Value Interpretation Reference Range Facility [id number] 04-23-2024 Vitamin D 25-OH 46.4 ng/mL Normal 30-100 [facility] Comment on above: Order Comment: PLEAS E FAX RESULTS TO [phone] Result Comment: Dotty min D Status Deficiency: <20 ng/mL (50nmol/L) Insufficiency: 20-30 ng/mL (50-75 nmol/L) Sufficiency: 30-100 ng/mL (75-250 nmol/L) Toxicity: >100 ng/mL (>250 nmol/L) Performed By: #### L 506.1001, L501.9520, L506.0400 #### [facility] [address] [place], [place], [id number] No Panel InformationOrdered By: Ceferino Cam on 04-23-2024 Vitamin D 25-Hydroxy 46.4 ng/mL 30-100 [facility] Comment on above: Vitamin D StatusDefi ciency: <20 ng/mL (50nmol/L)Insufficiency: 20-30 ng/mL (50-75 nmol/L)Sufficiency: 30-100 ng/mL (75-250 nmol/L)Toxicity: >100 ng/mL (>250 nmol/L) T4 Free Directon 04-23-2024 T4 FREE DIRECT 1.60 ng/dL High 0.76-1.46 [facility] Comment on above: Order Comment: PLEAS E FAX RESULTS TO [phone] Performed By: #### L 506.1001, L501.9520, L506.0400 #### [facility] [address] [place], [place], [address] T4 freeOrdered By: Ceferino low on 04-23-2024 Free T4 [Mass/Vol] 1.60 ng/dL High 0.76-1.46 [facility] TSH DL <= 0.005 mIU/L QnOrde red By: Ceferino Cam on 04-23-2024 Thyroid Stimulating Hormone (TSH) 1.490 uIU/mL 0.300-4.200 [facility] Thyroid Stim Hormone (TSH)on 04-23-2024 TSH 1.490 uIU/mL Normal 0.300-4.200 [facility] Comment on above: Order Comment: BREONNA Salazar FAX RESULTS TO [phone] Performed By: #### L 506.1001, L501.9520, L506.0400 #### [facility] [address] [place], [address] CBC-Complete Blood Cnt No Di ffon 10-22-2023 Erythrocyte distribution width (RBC) [Ratio] 12.9 % Normal 11.6-14.6 [facility] Comment on above: Performed By: #### L 506.1000, L500.4050, L506.0400, L500.4100, L100.0500, L501.9985, L501.9520 #### [facility] [address] [place], [place], [id number] Hematocrit (Bld) [Volume fraction] 43.2 % Normal 37-47 [facility] Comment on above: Performed By: #### L 506.1000, L500.4050, L506.0400, L500.4100, L100.0500, L501.9985, L501.9520 #### [facility] [address] [place], [address] Hemoglobin (Bld) [Mass/Vol] 13.4 g/dL Normal 12.0-15.0 [facility] Comment on above: Performed By: #### L 506.1000, L500.4050, L506.0400, L500.4100, L100.0500, L501.9985, L501.9520 #### [facility] [address] [place], [address] MCH (RBC) [Entitic mass] 27.5 pg Normal 27.0-32.0 [facility] Comment on above: Performed By: #### L 506.1000, L500.4050, L506.0400, L500.4100, L100.0500, L501.9985, L501.9520 #### [facility] [address] [place], [address] MCHC (RBC) [Mass/Vol] 31.0 g/dL Low 32-36 [facility] Comment on above: Performed By: #### L 506.1000, L500.4050, L506.0400, L500.4100, L100.0500, L501.9985, L501.9520 #### [facility] [address] [place], [address] MCV (RBC) [Entitic vol] 88.7 fL Normal 81-99 [facility] Comment on above: Performed By: #### L 506.1000, L500.4050, L506.0400, L500.4100, L100.0500, L501.9985, L501.9520 #### [facility] [address], [address] Platelet mean volume (Bld) [Entitic vol] 12.0 fL Normal 6.2-12.0 [facility] Comment on above: Performed By: #### L 506.1000, L500.4050, L506.0400, L500.4100, L100.0500, L501.9985, L501.9520 #### [facility] [address] [place], [address] Platelets (Bld) [#/Vol] 186 10*3/uL Normal 150-450 [facility] Comment on above: Performed By: #### L 506.1000, L500.4050, L506.0400, L500.4100, L100.0500, L501.9985, L501.9520 #### [facility] [address] [place], [address] RBC (Bld) [#/Vol] 4.87 10*6/uL Normal 4.2-5.4 [facility] Comment on above: Performed By: #### L 506.1000, L500.4050, L506.0400, L500.4100, L100.0500, L501.9985, L501.9520 #### [facility] [address] [place], [address] RDW SD 41.8 fl Normal 35.1-43.9 [facility] Comment on above: Performed By: #### L 506.1000, L500.4050, L506.0400, L500.4100, L100.0500, L501.9985, L501.9520 #### [facility] [address] [place], [address] WBC (Bld) [#/Vol] 4.2 10*3/uL Low 4.4-11.0 [facility] Comment on above: Performed By: #### L 506.1000, L500.4050, L506.0400, L500.4100, L100.0500, L501.9985, L501.9520 #### [facility] [address] [place], [address] Comprehensive Metabolic Prof [facility] 10-22-2023 Albumin [Mass/Vol] 3.4 g/dL Normal 3.2-5.0 [facility] Comment on above: Order Comment: FAX R O [phone] Performed By: #### L 506.1000, L500.4050, L506.0400, L500.4100, L100.0500, L501.9985, L501.9520 #### [facility] [address] [place], [address] Albumin/Globulin [Mass ratio] 0.9 {ratio} Normal 0.9-2.4 [facility] Comment on above: Order Comment: FAX R O [phone] Performed By: #### L 506.1000, L500.4050, L506.0400, L500.4100, L100.0500, L501.9985, L501.9520 #### [facility] [address] [place], [place], [id number] (931) ALK P 67 U/L Normal 45-117 [facility] Comment on above: Order Comment: FAX R O [phone] Performed By: #### L 506.1000, L500.4050, L506.0400, L500.4100, L100.0500, L501.9985, L501.9520 #### [facility] [address] [place], [place], [id number] ALT [Catalytic activity/Vol] 26 U/L Normal 13-56 [facility] Comment on above: Order Comment: FAX R O [phone] Performed By: #### L 506.1000, L500.4050, L506.0400, L500.4100, L100.0500, L501.9985, L501.9520 #### [facility] [address] [place], [address] AST [Catalytic activity/Vol] 21 U/L Normal 15-37 [facility] Comment on above: Order Comment: FAX R O [phone] Performed By: #### L 506.1000, L500.4050, L506.0400, L500.4100, L100.0500, L501.9985, L501.9520 #### [facility] [address] [place], [place], [id number] Bilirubin [Mass/Vol] 0.40 mg/dL Normal 0.20-1.00 [facility] Comment on above: Order Comment: FAX R O [phone] Result Comment: For patients on eltrombopag therapy, use of Dimension [place] TBIL is not recommended. Performed By: #### L 506.1000, L500.4050, L506.0400, L500.4100, L100.0500, L501.9985, L501.9520 #### [facility] [address] [place], [address] BUN/CRE 16.2 RATIO Normal 10-20 [facility] Comment on above: Order Comment: FAX R O [phone] Performed By: #### L 506.1000, L500.4050, L506.0400, L500.4100, L100.0500, L501.9985, L501.9520 #### [facility] [address] [place], [address] CA,Total 10.0 mg/dL Normal 8.5-10.1 [facility] Comment on above: Order Comment: FAX R O [phone] Performed By: #### L 506.1000, L500.4050, L506.0400, L500.4100, L100.0500, L501.9985, L501.9520 #### [facility] [address] [place], [address] Chloride [Moles/Vol] 107 mmol/L Normal 98-107 [facility] Comment on above: Order Comment: FAX R O [phone] Performed By: #### L 506.1000, L500.4050, L506.0400, L500.4100, L100.0500, L501.9985, L501.9520 #### [facility] [address] [place], [address] CO2 [Moles/Vol] 28.0 mmol/L Normal 21.0-32.0 [facility] Comment on above: Order Comment: FAX R O [phone] Performed By: #### L 506.1000, L500.4050, L506.0400, L500.4100, L100.0500, L501.9985, L501.9520 #### [facility] [address], [address] Creatinine [Mass/Vol] 0.92 mg/dL Normal 0.55-1.02 [facility] Comment on above: Order Comment: FAX R O [phone] Result Comment: The validity of the calculated GFR GFRAA in patients over 70 years has not been determined. Clinical correlation is essential. Performed By: #### L 506.1000, L500.4050, L506.0400, L500.4100, L100.0500, L501.9985, L501.9520 #### [facility] [address] [place], [address] EST GFR - AA 79 mL/min Normal >60 [facility] Comment on above: Order Comment: FAX R O [phone] Result Comment: Afri can [place] GFR Calc Performed By: #### L 506.1000, L500.4050, L506.0400, L500.4100, L100.0500, L501.9985, L501.9520 #### [facility] [address] [place], [address] GAP 6 Normal 5-15 [facility] Comment on above: Order Comment: FAX R O [phone] Performed By: #### L 506.1000, L500.4050, L506.0400, L500.4100, L100.0500, L501.9985, L501.9520 #### [facility] [address] [place], [address] GFR/1.73 sq M.predicted among non-blacks MDRD (S/P/Bld) [Vol rate/Area] 66 mL/min/{1.73_m2} Normal >60 [facility] Comment on above: Order Comment: FAX R O [phone] Result Comment: Non- GFR Calc Performed By: #### L 506.1000, L500.4050, L506.0400, L500.4100, L100.0500, L501.9985, L501.9520 #### [facility] [address] [place], [address] Globulin (S) [Mass/Vol] 3.7 g/dL Normal 2.2-4.2 [facility] Comment on above: Order Comment: FAX R O [phone] Performed By: #### L 506.1000, L500.4050, L506.0400, L500.4100, L100.0500, L501.9985, L501.9520 #### [facility] [address] [place], [address] Glucose [Mass/Vol] 97 mg/dL Normal 74-106 [facility] Comment on above: Order Comment: FAX R O [phone] Performed By: #### L 506.1000, L500.4050, L506.0400, L500.4100, L100.0500, L501.9985, L501.9520 #### [facility] [address] [place], [address] Potassium [Moles/Vol] 4.3 mmol/L Normal 3.5-5.1 [facility] Comment on above: Order Comment: FAX R O [phone] Performed By: #### L 506.1000, L500.4050, L506.0400, L500.4100, L100.0500, L501.9985, L501.9520 #### [facility] [address] [place], [address] Sodium [Moles/Vol] 141 mmol/L Normal 136-145 [facility] Comment on above: Order Comment: FAX R O [phone] Performed By: #### L 506.1000, L500.4050, L506.0400, L500.4100, L100.0500, L501.9985, L501.9520 #### [facility] [address] [place], [place], [id number] T PROT 7.1 g/dL Normal 6.4-8.2 [facility] Comment on above: Order Comment: FAX R O [phone] Performed By: #### L 506.1000, L500.4050, L506.0400, L500.4100, L100.0500, L501.9985, L501.9520 #### [facility] [address] [place], [place], [id number] Urea nitrogen [Mass/Vol] 15 mg/dL Normal 7-18 [facility] Comment on above: Order Comment: FAX R O [phone] Performed By: #### L 506.1000, L500.4050, L506.0400, L500.4100, L100.0500, L501.9985, L501.9520 #### [facility] [address] [place], [place], [id number] Hemoglobin A1con 10-22-2023 HbA1c (Bld) [Mass fraction] 6.0 % High 3.8-5.6 [facility] Comment on above: Result Comment: Norm al < 5.7 % Prediabetic 5.7 - 6.4 % Diabetic >or= 6.5 % Please note range changes. Performed By: #### L 506.1000, L500.4050, L506.0400, L500.4100, L100.0500, L501.9985, L501.9520 #### [facility] [address] [place], [address] Lipid Profileon 10-22-2023 Cholesterol [Mass/Vol] 178 mg/dL Normal 200 [facility] Comment on above: Order Comment: FAX R O [phone] Result Comment: <200 mg/dL Desirable 200-240 mg/dL Borderline >240 mg/dL High Risk Performed By: #### L 506.1000, L500.4050, L506.0400, L500.4100, L100.0500, L501.9985, L501.9520 #### [facility] [address] [place], [address] Cholesterol in HDL [Mass/Vol] 59 mg/dL Normal [facility] Comment on above: Order Comment: FAX R O [phone] Result Comment: The drugs N-Acetylcysteine and Metamizole may falsely depress this assay. Reference Range HDL <40 mg/dL Low HDL Cholesterol HDL >or= 60 mg/dL High HDL Cholesterol Performed By: #### L 506.1000, L500.4050, L506.0400, L500.4100, L100.0500, L501.9985, L501.9520 #### [facility] [address] [place], [address] Cholesterol in LDL [Mass/Vol] 101 mg/dL Normal 0-130 [facility] Comment on above: Order Comment: FAX R O [phone] Performed By: #### L 506.1000, L500.4050, L506.0400, L500.4100, L100.0500, L501.9985, L501.9520 #### [facility] [address] [place], [address] Cholesterol in VLDL [Mass/Vol] 18 mg/dL Normal 5-40 [facility] Comment on above: Order Comment: FAX R O [phone] Performed By: #### L 506.1000, L500.4050, L506.0400, L500.4100, L100.0500, L501.9985, L501.9520 #### [facility] [address] [place], [address] Triglyceride [Mass/Vol] 89 mg/dL Normal [facility] Comment on above: Order Comment: FAX R O [phone] Result Comment: The drugs N-Acetylcysteine and Metamizole may falsely depress this assay. Serum Triglycerides Reference Interval Normal <150 mg/dL Borderline high 150 - 199 mg/dL High 200 - 499 mg/dL Very High > or = 500 mg/dL Performed By: #### L 506.1000, L500.4050, L506.0400, L500.4100, L100.0500, L501.9985, L501.9520 #### [facility] [address] [place], [place], [id number] T4 Free Directon 10-22-2023 T4 FREE DIRECT 1.30 ng/dL Normal 0.76-1.46 [facility] Comment on above: Order Comment: FAX R O [phone] Performed By: #### L 506.1000, L500.4050, L506.0400, L500.4100, L100.0500, L501.9985, L501.9520 #### [facility] [address] [place], [place], [id number] Thyroid Stim Hormone (TSH)on 10-22-2023 TSH 1.390 uIU/mL Normal 0.358-3.740 [facility] Comment on above: Order Comment: FAX R O [phone] Performed By: #### L 506.1000, L500.4050, L506.0400, L500.4100, L100.0500, L501.9985, L501.9520 #### [facility] [address] [place], [place], [id number] Vitamin D,25 Hydroxyon 10-21 Vitamin D 25-OH 47.4 ng/mL Normal [facility] Comment on above: Result Comment: Dotty min D 25(OH) Status Range Deficiency <20 ng/mL (50nmol/L) Insufficiency 20 - 30 ng/mL (50 - 75 nmol/L) Sufficiency 30 - 100 ng/mL (75 - 250 nmol/L) Toxicity >100 ng/mL (>250 nmol/L) Performed By: #### L 506.1000, L500.4050, L506.0400, L500.4100, L100.0500, L501.9985, L501.9520 #### [facility] [address] [place], [address] Brain/Head without Contrasto n 05-13-2023 Brain/Head without Contrast [facility] Imaging Services [address] [place] [address] Brain/Head without Contrast MR#: [id number] Acct: [id number] Name: MONICA PEPE Rep #: [id number] : 1960 F 62 From: Sanford Ro MD PCP: Ceferino Cam, SAP MANAGER-C Status: REG ER Study: Brain/Head without Contrast Date of Exam: 04/25 10/18 Exam# [id number] Ordering Dr: Murphy Hood DO [id number] STUDY: CT BRAIN WITHOUT CONTRAST REASON FOR EXAM: Female, 62 years old. head trauma RADIATION DOSAGE (If Supplied By Facility): CTDIvol = ( 44.99 ) mGy, DLP = ( 796.11 ) mGycm TECHNIQUE: Transaxial CT imaging of the brain was performed without administration of intravenous contrast material. Individualized dose optimization techniques were used for this CT. COMPARISON: No relevant priors. FINDINGS: Soft tissue swelling overlying the parietal bones without associated skull fracture or acute intracranial hemorrhage Probable prominent perivascular space in left medial temporal lobe Normal size ventricles and extra-axial spaces for the patient''s age. Normal white matter tracts of the cerebral hemispheres. Normal basal ganglia and thalami. Normal brainstem. Normal cerebellum. Partial empty sella deformity likely of no significance. There is no intracranial hemorrhage. There are no findings of an acute ischemic infarction. Normal visualized paranasal sinuses. CT/Brain/Head without Contrast IMPRESSION: Soft tissue swelling of the scalp overlying the parietal bones without fracture or acute intracranial bleed Electronically Signed: Sanford Ro MD at 17:11 EDT , CC: NELY Cam; Dr. Murphy Hood DO Switchboard Operator Assistant: Signed Normal [facility] Emergency Department Summary on 05-13-2023 Emergency Department Summary [facility] Medical Records Department [address] [place] [address] Emergency Department Summary 05/13/23 MR#: [id number] Acct: [id number] Name: MONICA PEPE Rep #: [id number] : 1960 62 From: Murphy Hood DO PCP: NELY Real Status:REG ER Location: ED HPI History of Present Illness Chief Complaint: Head Injury Narrative Narrative: 62-year-old female on Coumadin presenting with head injury. She states she was walking on a small ramp and slipped and fell. She landed on her buttocks initially and then hit her head. No LOC. No dizziness,, lightheadedness, nauseous, visual complaints. She is ambulating stably. Patient states she came for CT of her brain because she hit her head she is on anticoagulation. Patient denies neck pain. Denies other injury. [facility] Medical History DVT (deep venous thrombosis) Hypothyroidism Kidney stones Retinal tear Home Medications cholecalciferol (vitamin D3) 50 mcg (2,000 unit) tablet (D3 DOTS) 50 mcg PO BID 05/13/23 [History Last Taken Unknown] levothyroxine 125 mcg tablet 125 mcg PO DAILY 05/13/23 [History Last Taken Unknown] phenazopyridine 95 mg tablet (Azo Urinary Pain Relief) 95 mg PO Q8H 05/13/23 [History Last Taken Unknown] phenazopyridine 99.5 mg tablet (Azo Urinary Pain Relief) 199 mg PO DAILY 05/13/23 [History Last Taken Unknown] warfarin 5 mg tablet 7.5 mg PO DAILY 05/13/23 [History Last Taken Unknown] Allergy/AdvReac Type Severity Reaction Status Date / Time latex Allergy Mild Rash Verified 05/13/23 15:27 erythromycin base AdvReac Mild Vomiting Verified 05/13/23 15:27 codeine AdvReac Upset Verified 05/13/23 15:27 Stomach Surgical History H/O tubal ligation H/O: hysterectomy History of cholecystectomy History of right oophorectomy Hx of appendectomy Social History Smoking Status: Never smoker ROS ROS ED Constitutional Constitutional ED: Denies chills, fever(s) or sweats Eyes Eyes: Denies blurry vision or change in vision ENT ENT ED: Denies ear pain or sore throat Cardiovascular Cardiovascular: Denies chest pain, palpitations or racing heartbeat Respiratory/Chest Respiratory/Chest: Denies cough, dyspnea or sputum Gastrointestinal Gastrointestinal: Denies abdominal pain, constipation, diarrhea, nausea or vomiting Genitourinary Genitourinary ED: Denies dysuria, hematuria or urinary frequency Musculoskeletal Musculoskeletal: Denies arthralgias, myalgias or neck pain Integumentary Denies abscess, Abrasions or rash Neurologic Neurologic: Reports headache(s); Denies paresthesias or weakness Psychiatric Psychiatric: Denies anxiety, depression, suicidal ideation or suicidal thoughts Endocrine Endocrinology: Denies polydipsia or polyuria EXAM Physical Exam Const Vital Signs: 05/13/23 15:24 05/13/23 15:49 Temperature 96.9 F L Temperature Source Temporal Pulse Rate 86 Respiratory Rate 18 Respiratory Effort Normal Respiratory Depth Normal Respiratory Pattern Normal Blood Pressure 178/95 H Blood Pressure Mean 122 Pulse Ox 100 Oxygen Delivery Method Room Air Room Air Positive well nourished General Appearance ED: NAD HEENT atraumatic Eyes PERRL and EOMs intact bilaterally Chest Wall inspection of chest normal Resp normal respiratory effort and clear to auscultation bilaterally Auscultation: Negative for rales, rhonchi or wheezes Cardio regular rhythm Extremity normal to inspection Neuro oriented x3, CN's II-XII intact bilaterally, moves all extremities, no focal motor deficits, no sensory deficits noted and gait normal Neuro Narrative: No focal neurologic deficits or lateralizing signs or symptoms Sensorium / Orientation: alert Motor Exam: strength 5/5 throughout Skin no rashes or lesions noted MDM MDM MDM Narrative Medical decision making narrative: Difficult headache although she does have mild 1. No nauseousness, dizziness, lightheadedness, visual complaints.Patient presents with head injury. She had a mechanical fall. She is at baseline. Will obtain CT brain. Patient declines analgesia or antiemetics. CT of the brain is negative. Patient counseled on findings. Return precautions discussed. Stable discharge. Impression: 1. Close head injury 2. Mechanical fall Radiography Diagnostic Testing: Clinical Impression(s) from Imaging Studies Brain CT 05/13/23 16:24 IMPRESSION: Soft tissue swelling of the scalp overlying the parietal bones without fracture or acute intracranial bleed Electronically Signed: Sanford Ro MD at 17:11 EDT Reading Location ID and State: [id number] (more content not included)... Normal [facility] No Panel InformationOrdered By: Ceferino Cam on 04-24-2023 Vitamin D 25-Hydroxy 39.2 ng/mL [facility] Comment on above: Vitamin D 25(OH) Sta tus Range Deficiency <20 ng/mL (50nmol/L) Insufficiency 20 - 30 ng/mL (50 - 75 nmol/L) Sufficiency 30 - 100 ng/mL (75 - 250 nmol/L) Toxicity >100 ng/mL (>250 nmol/L) Serum or plasma thyroid stim ulating hormone (TSH) measurement (units/volume)Ordered By: Ceferino Cam on 04-24-2023 TSH Qn 1.13 uIU/mL 0.358-3.74 [facility] Thin prep Papanicolaou smear with manual screeningOrdered By: Ceferino Cam on 04-24-2023 Thin prep Papanicolaou smear with manual screening 1.25 ng/dL 0.76-1.46 [facility] .GFRon 10-04-2022 GFR 72 ml/min/1.73sqm Normal [facility] ([place]) Comment on above: Result Comment: GFR Population mean for , Non- Americans Ages 20-29 = 116 mL/min/1.73 sq.m. Ages 30-39 = 107 mL/min/1.73 sq.m. Ages 40-49 = 99 mL/min/1.73 sq.m. Ages 50-59 = 93 mL/min/1.73 sq.m. Ages 60-69 = 85 mL/min/1.73 sq.m. Ages 70+ = 75 mL/min/1.73 sq.m. Chronic Kidney Disease: Less than 60 mL/min/1.73 square meters End Stage Renal Disease: Less than 15 mL/min/1.73 square meters Performed By: #### T SH, VIDH, CMP, GFR, LIPID, FT4 #### [address] [address] GFR Non- 59 ml/min/1.73sqm Normal [facility] ([place]) Comment on above: Result Comment: GFR Population mean for , Non- Americans Ages 20-29 = 116 mL/min/1.73 sq.m. Ages 30-39 = 107 mL/min/1.73 sq.m. Ages 40-49 = 99 mL/min/1.73 sq.m. Ages 50-59 = 93 mL/min/1.73 sq.m. Ages 60-69 = 85 mL/min/1.73 sq.m. Ages 70+ = 75 mL/min/1.73 sq.m. Chronic Kidney Disease: Less than 60 mL/min/1.73 square meters End Stage Renal Disease: Less than 15 mL/min/1.73 square meters Performed By: #### T SH, VIDH, CMP, GFR, LIPID, FT4 #### [address] [address] CMPon 10-04-2022 Albumin Level 3.9 G/dL Normal 3.4-4.8 [facility] ([place]) Comment on above: Performed By: #### T SH, VIDH, CMP, GFR, LIPID, FT4 #### [address] [address] Albumin/Globulin [Mass ratio] 1.3 {ratio} Normal 1.1-2.5 [facility] ([place]) Comment on above: Performed By: #### T SH, VIDH, CMP, GFR, LIPID, FT4 #### [address] [address] ALP [Catalytic activity/Vol] 53 U/L Normal 40-135 [facility] ([place]) Comment on above: Performed By: #### T SH, VIDH, CMP, GFR, LIPID, FT4 #### [address] [address] ALT [Catalytic activity/Vol] 36 U/L Normal 14-59 [facility] ([place]) Comment on above: Performed By: #### T SH, VIDH, CMP, GFR, LIPID, FT4 #### [address] [address] AST [Catalytic activity/Vol] 27 U/L Normal 10-40 [facility] ([place]) Comment on above: Performed By: #### T SH, VIDH, CMP, GFR, LIPID, FT4 #### [address] [address] Bili Total 0.4 mg/dL Normal 0.2-1.0 [facility] ([place]) Comment on above: Result Comment: Use of this assay is not recommended for patients undergoing treatment with eltrombopag due to the potential for falsely elevated results. Performed By: #### T SH, VIDH, CMP, GFR, LIPID, FT4 #### [address] [address] BUN/Creatinine Ratio 20 ratio Normal 7-27 [facility] ([place]) Comment on above: Performed By: #### T SH, VIDH, CMP, GFR, LIPID, FT4 #### [address] [address] Calcium [Mass/Vol] 9.2 mg/dL Normal 8.4-10.2 [facility] ([place]) Comment on above: Performed By: #### T SH, VIDH, CMP, GFR, LIPID, FT4 #### [address] [address] Chloride [Moles/Vol] 106 mmol/L Normal 98-107 [facility] ([place]) Comment on above: Performed By: #### T SH, VIDH, CMP, GFR, LIPID, FT4 #### [address] [address] CO2 [Moles/Vol] 28 mmol/L Normal 23-31 [facility] ([place]) Comment on above: Performed By: #### T SH, VIDH, CMP, GFR, LIPID, FT4 #### [address] [address] Creatinine [Mass/Vol] 0.96 mg/dL Normal 0.55-1.02 [facility] ([place]) Comment on above: Performed By: #### T SH, VIDH, CMP, GFR, LIPID, FT4 #### [address] [address] Electrolyte Balance 10.0 mEq/L Normal 4.0-15.0 [facility] ([place]) Comment on above: Performed By: #### T SH, VIDH, CMP, GFR, LIPID, FT4 #### [place] [id number] Globulin 3.0 G/dL Normal [facility] ([place]) Comment on above: Performed By: #### T SH, VIDH, CMP, GFR, LIPID, FT4 #### [place] [id number] Glucose [Mass/Vol] 95 mg/dL Normal 80-115 [facility] ([place] Comment on above: Performed By: #### T SH, VIDH, CMP, GFR, LIPID, FT4 #### [place] [id number] Potassium [Moles/Vol] 4.5 mmol/L Normal 3.5-5.1 [facility] ([place]) Comment on above: Performed By: #### T SH, VIDH, CMP, GFR, LIPID, FT4 #### [place] [id number] Sodium [Moles/Vol] 144 mmol/L Normal 136-145 [facility] ([place] Comment on above: Performed By: #### T SH, VIDH, CMP, GFR, LIPID, FT4 #### [place] [id number] Total Protein 6.9 G/dL Normal 6.4-8.2 [facility] ([place]) Comment on above: Performed By: #### T SH, VIDH, CMP, GFR, LIPID, FT4 #### [address] [address] Urea nitrogen [Mass/Vol] 19 mg/dL High 7-18 [facility] ([place]) Comment on above: Performed By: #### T SH, VIDH, CMP, GFR, LIPID, FT4 #### [address] [address] FT4on 10-04-2022 Free T4 [Mass/Vol] 1.25 ng/dL Normal 0.76-1.46 [facility] ([place] Comment on above: Performed By: #### T SH, VIDH, CMP, GFR, LIPID, FT4 #### [address] [address] LABORATORYOrdered By: SYSTEM SYSTEM on 10-04-2022 25-hydroxyvitamin D3 [Mass/Vol] 48.1 ng/mL Invalid Interpretation Code AO ADM SS Comment on above: Interpretive Data: I nterpretive Values Based on Total 25(OH) Vitamin D: Deficient <20 ng/mL Insufficient 20 - <30 ng/mL Sufficient 30-100 ng/mL Albumin BCP dye [Mass/Vol] 3.9 G/dL Invalid Interpretation Code 3.4 - 4.8 G/dL AO ADM SS Albumin/Globulin [Mass ratio] 1.3 {ratio} Invalid Interpretation Code 1.1 - 2.5 ratio AO ADM SS ALP [Catalytic activity/Vol] 53 U/L Invalid Interpretation Code 40 - 135 U/L AO ADM SS ALT With P-5'-P [Catalytic activity/Vol] 36 U/L Invalid Interpretation Code 14 - 59 U/L AO ADM SS AST With P-5'-P [Catalytic activity/Vol] 27 U/L Invalid Interpretation Code 10 - 40 U/L AO ADM SS Bilirubin [Mass/Vol] 0.4 mg/dL Invalid Interpretation Code 0.2 - 1.0 mg/dL AO ADM SS Comment on above: Interpretive Data: U se of this assay is not recommended for patients undergoing treatment with eltrombopag due to the potential for falsely elevated results. Calcium [Mass/Vol] 9.2 mg/dL Invalid Interpretation Code 8.4 - 10.2 mg/dL AO ADM SS Chloride [Moles/Vol] 106 mmol/L Invalid Interpretation Code 98 - 107 mmol/L AO ADM SS CO2 [Moles/Vol] 28 mmol/L Invalid Interpretation Code 23 - 31 mmol/L AO ADM SS Creatinine [Mass/Vol] 0.96 mg/dL Invalid Interpretation Code 0.55 - 1.02 mg/dL AO ADM SS Electrolyte Balance 10.0 mEq/L Invalid Interpretation Code 4.0 - 15.0 mEq/L AO ADM SS Free T4 [Mass/Vol] 1.25 ng/dL Invalid Interpretation Code 0.76 - 1.46 ng/dL AO ADM SS GFR/1.73 sq M.predicted among blacks MDRD (S/P/Bld) [Vol rate/Area] 72 ml/min/1.73sqm Invalid Interpretation Code AO Chemistry S Comment on above: Interpretive Data: GFR Population mean for , Non- Americans Ages 20-29 = 116 mL/min/1.73 sq.m. Ages 30-39 = 107 mL/min/1.73 sq.m. Ages 40-49 = 99 mL/min/1.73 sq.m. Ages 50-59 = 93 mL/min/1.73 sq.m. Ages 60-69 = 85 mL/min/1.73 sq.m. Ages 70+ = 75 mL/min/1.73 sq.m. Chronic Kidney Disease: Less than 60 mL/min/1.73 square meters End Stage Renal Disease: Less than 15 mL/min/1.73 square meters GFR/1.73 sq M.predicted among non-blacks MDRD (S/P/Bld) [Vol rate/Area] 59 ml/min/1.73sqm Invalid Interpretation Code AO Chemistry S Comment on above: Interpretive Data: GFR Population mean for , Non- Americans Ages 20-29 = 116 mL/min/1.73 sq.m. Ages 30-39 = 107 mL/min/1.73 sq.m. Ages 40-49 = 99 mL/min/1.73 sq.m. Ages 50-59 = 93 mL/min/1.73 sq.m. Ages 60-69 = 85 mL/min/1.73 sq.m. Ages 70+ = 75 mL/min/1.73 sq.m. Chronic Kidney Disease: Less than 60 mL/min/1.73 square meters End Stage Renal Disease: Less than 15 mL/min/1.73 square meters Globulin 3.0 G/dL Invalid Interpretation Code AO ADM SS Glucose [Mass/Vol] 95 mg/dL Invalid Interpretation Code 80 - 115 mg/dL AO ADM SS Potassium [Moles/Vol] 4.5 mmol/L Invalid Interpretation Code 3.5 - 5.1 mmol/L AO ADM SS Protein [Mass/Vol] 6.9 G/dL Invalid Interpretation Code 6.4 - 8.2 G/dL AO ADM SS Sodium [Moles/Vol] 144 mmol/L Invalid Interpretation Code 136 - 145 mmol/L AO ADM SS TSH Qn 3.04 m[IU]/L Invalid Interpretation Code 0.36 - 3.74 mcIU/mL AO ADM SS Urea nitrogen [Mass/Vol] 19 mg/dL Invalid Interpretation Code 7 - 18 mg/dL AO ADM SS Urea nitrogen/Creatinine [Mass ratio] 20 ratio Invalid Interpretation Code 7 - 27 ratio AO ADM SS LABORATORYOrdered By: Paradise Swan on 10-04-2022 Cholesterol [Mass/Vol] 201 mg/dL Invalid Interpretation Code 0 - 200 mg/dL AO ADM SS Comment on above: Interpretive Data: C holesterol Reference Interval: Less than 200 Desirable 200-239 Borderline high risk 240 and above High risk Cholesterol in HDL [Mass/Vol] 68 mg/dL Invalid Interpretation Code 40 - 60 mg/dL AO ADM SS Cholesterol in LDL [Mass/Vol] 109 mg/dL Invalid Interpretation Code 0 - 130 mg/dL AO ADM SS Triglyceride [Mass/Vol] 122 mg/dL Invalid Interpretation Code 0 - 150 mg/dL AO ADM SS Comment on above: Interpretive Data: T riglyceride Reference Interval: Less than 150 Normal 150-199 Borderline high risk 200-499 High risk 500 or higher Very high risk LIPIDon 10-04-2022 Cholesterol [Mass/Vol] 201 mg/dL High 0-200 [facility] ([place]) Comment on above: Result Comment: Chol esterol Reference Interval: Less than 200 Desirable 200-239 Borderline high risk 240 and above High risk Performed By: #### T SH, VIDH, CMP, GFR, LIPID, FT4 #### [address] [address] Cholesterol in HDL [Mass/Vol] 68 mg/dL High 40-60 [facility] ([place]) Comment on above: Performed By: #### T SH, VIDH, CMP, GFR, LIPID, FT4 #### [address] [address] Cholesterol in LDL [Mass/Vol] 109 mg/dL Normal 0-130 [facility] ([place]) Comment on above: Performed By: #### T SH, VIDH, CMP, GFR, LIPID, FT4 #### [address] [address] Triglyceride [Mass/Vol] 122 mg/dL Normal 0-150 [facility] ([place]) Comment on above: Result Comment: Trig lyceride Reference Interval: Less than 150 Normal 150-199 Borderline high risk 200-499 High risk 500 or higher Very high risk Performed By: #### T SH, VIDH, CMP, GFR, LIPID, FT4 #### [address] [address] TSHon 10-04-2022 TSH Qn 3.04 m[IU]/L Normal 0.36-3.74 [facility] ([place]) Comment on above: Performed By: #### T SH, VIDH, CMP, GFR, LIPID, FT4 #### [address] [address] VIDHon 10-04-2022 Vit. D 25-Hydroxy 48.1 ng/mL Normal [facility] ([place]) Comment on above: Result Comment: Inte rpretive Values Based on Total 25(OH) Vitamin D: Deficient <20 ng/mL Insufficient 20 - <30 ng/mL Sufficient 30-100 ng/mL Performed By: #### T SH, VIDH, CMP, GFR, LIPID, FT4 #### [address] [address] [address] HEAD OR BRAIN W/O CONTRAS Ton 11-25-2021 CT HEAD OR BRAIN W/O CONTRAST ORIGINAL EXAMINATION: CT OF THE HEAD WITHOUT [...] Date: 11/25/2021 4:42:01 PM Ordering Provider: NELSON STEWART Count Includes [facility] ([place]) LABORATORYOrdered By: Reggie Osuna on 03-23-2021 Adenovirus DNA SUNITA+non-probe Ql (Nph) Not Detected *NA* (03/23/21 12:00 PM) Invalid Interpretation Code Not Detected AH Auto Viro/Sero SS ADMITTED TO INTENSIVE CARE UNIT FOR CONDITION OF INTEREST:FIND:PT:^MARCELA ENT:ORD: No (03/23/21 12:00 PM) Invalid Interpretation Code AH Auto Viro/Sero SS B. pertussis toxin promoter region SUNITA+non-probe Ql (Nph) Not Detected *NA* (03/23/21 12:00 PM) Invalid Interpretation Code Not Detected AH Auto Viro/Sero SS Bordetella Parapertussis Not Detected *NA* (03/23/21 12:00 PM) Invalid Interpretation Code Not Detected AH Auto Viro/Sero SS C. pneumoniae DNA SUNITA+non-probe Ql (Nph) Not Detected *NA* (03/23/21 12:00 PM) Invalid Interpretation Code Not Detected AH Auto Viro/Sero SS EMPLOYED IN A HEALTHCARE SETTING:FIND:PT:^PATIE NT:ORD: Yes (03/23/21 12:00 PM) Invalid Interpretation Code AH Auto Viro/Sero SS FIRST TEST FOR CONDITION OF INTEREST:FIND:PT:^MARCELA ENT:ORD: Unknown (03/23/21 12:00 PM) Invalid Interpretation Code Auto Viro/Sero SS FLUAV RNA SUNITA+non-probe Ql (Nph) Not Detected *NA* (03/23/21 12:00 PM) Invalid Interpretation Code Not Detected Auto Viro/Sero SS FLUBV RNA SUNITA+non-probe Ql (Nph) Not Detected *NA* (03/23/21 12:00 PM) Invalid Interpretation Code Not Detected AH Auto Viro/Sero SS HAS SYMPTOMS RELATED TO CONDITION OF INTEREST:FIND:PT:^MARCEAL ENT:ORD: Yes (03/23/21 12:00 PM) Invalid Interpretation Code Auto Viro/Sero SS hMPV RNA SUNITA+non-probe Ql (Nph) Not Detected *NA* (03/23/21 12:00 PM) Invalid Interpretation Code Not Detected Auto Viro/Sero SS Illness or injury onset date and time [id number] Invalid Interpretation Code Auto Viro/Sero SS M. pneumoniae DNA SUNITA+non-probe Ql (Nph) Not Detected *NA* (03/23/21 12:00 PM) Invalid Interpretation Code Not Detected Auto Viro/Sero SS Parainfluenza virus 1 RNA SUNITA+non-probe Ql (Nph) Not Detected *NA* (03/23/21 12:00 PM) Invalid Interpretation Code Not Detected Auto Viro/Sero SS Parainfluenza virus 2 RNA SUNITA+non-probe Ql (Nph) Not Detected *NA* (03/23/21 12:00 PM) Invalid Interpretation Code Not Detected Auto Viro/Sero SS Parainfluenza virus 3 RNA SUNITA+non-probe Ql (Nph) Not Detected *NA* (03/23/21 12:00 PM) Invalid Interpretation Code Not Detected Auto Viro/Sero SS Parainfluenza virus 4 RNA SUNITA+non-probe Ql (Nph) Not Detected *NA* (03/23/21 12:00 PM) Invalid Interpretation Code Not Detected AH Auto Viro/Sero SS Patient was hospitalized because of this condition No (03/23/21 12:00 PM) Invalid Interpretation Code AH Auto Viro/Sero SS status Not (03/23/21 12:00 PM) Invalid Interpretation Code AH Auto Viro/Sero SS RESIDES IN A [facility] CARE SETTING:FIND:PT:^PATIE NT:ORD: No (03/23/21 12:00 PM) Invalid Interpretation Code AH Auto Viro/Sero SS Rhinovirus+Enterovirus RNA SUNITA+non-probe Ql (Nph) Not Detected *NA* (03/23/21 12:00 PM) Invalid Interpretation Code Not Detected AH Auto Viro/Sero SS RSV RNA SUNITA+non-probe Ql (Nph) Not Detected *NA* (03/23/21 12:00 PM) Invalid Interpretation Code Not Detected AH Auto Viro/Sero SS SARS-CoV-2 (COVID-19) RNA SUNITA+probe Ql (Unsp spec) Detected 1 *ABN* (03/23/21 12:00 PM) Invalid Interpretation Code Not Detected AH Auto Viro/Sero SS Comment on above: Result Comment: This organism causes a reportable disease. Infection Control has been notified. Results have been reported to the [place] [facility]. LABORATORYOrdered By: Reggie Osuna on 02-10-2021 Adenovirus DNA SUNITA+non-probe Ql (Nph) Not Detected *NA* (02/10/21 2:41 PM) Invalid Interpretation Code Not Detected AH Auto Viro/Sero SS ADMITTED TO INTENSIVE CARE UNIT FOR CONDITION OF INTEREST:FIND:PT:^MARCELA ENT:ORD: No (02/10/21 2:41 PM) Invalid Interpretation Code AH Auto Viro/Sero SS B. pertussis toxin promoter region SUNITA+non-probe Ql (Nph) Not Detected *NA* (02/10/21 2:41 PM) Invalid Interpretation Code Not Detected AH Auto Viro/Sero SS Bordetella Parapertussis Not Detected *NA* (02/10/21 2:41 PM) Invalid Interpretation Code Not Detected AH Auto Viro/Sero SS C. pneumoniae DNA SUNITA+non-probe Ql (Nph) Not Detected *NA* (02/10/21 2:41 PM) Invalid Interpretation Code Not Detected AH Auto Viro/Sero SS EMPLOYED IN A HEALTHCARE SETTING:FIND:PT:^PATIE NT:ORD: Yes (02/10/21 2:41 PM) Invalid Interpretation Code AH Auto Viro/Sero SS FIRST TEST FOR CONDITION OF INTEREST:FIND:PT:^MARCELA ENT:ORD: No (02/10/21 2:41 PM) Invalid Interpretation Code Auto Viro/Sero SS FLUAV RNA SUNITA+non-probe Ql (Nph) Not Detected *NA* (02/10/21 2:41 PM) Invalid Interpretation Code Not Detected Auto Viro/Sero SS FLUBV RNA SUNITA+non-probe Ql (Nph) Not Detected *NA* (02/10/21 2:41 PM) Invalid Interpretation Code Not Detected AH Auto Viro/Sero SS HAS SYMPTOMS RELATED TO CONDITION OF INTEREST:FIND:PT:^MARCELA ENT:ORD: Yes (02/10/21 2:41 PM) Invalid Interpretation Code Auto Viro/Sero SS hMPV RNA SUNITA+non-probe Ql (Nph) Not Detected *NA* (02/10/21 2:41 PM) Invalid Interpretation Code Not Detected Auto Viro/Sero SS Illness or injury onset date and time [id number] Invalid Interpretation Code Auto Viro/Sero SS M. pneumoniae DNA SUNITA+non-probe Ql (Nph) Not Detected *NA* (02/10/21 2:41 PM) Invalid Interpretation Code Not Detected Auto Viro/Sero SS Parainfluenza virus 1 RNA SUNITA+non-probe Ql (Nph) Not Detected *NA* (02/10/21 2:41 PM) Invalid Interpretation Code Not Detected Auto Viro/Sero SS Parainfluenza virus 2 RNA SUNITA+non-probe Ql (Nph) Not Detected *NA* (02/10/21 2:41 PM) Invalid Interpretation Code Not Detected Auto Viro/Sero SS Parainfluenza virus 3 RNA SUNITA+non-probe Ql (Nph) Not Detected *NA* (02/10/21 2:41 PM) Invalid Interpretation Code Not Detected Auto Viro/Sero SS Parainfluenza virus 4 RNA SUNITA+non-probe Ql (Nph) Not Detected *NA* (02/10/21 2:41 PM) Invalid Interpretation Code Not Detected AH Auto Viro/Sero SS Patient was hospitalized because of this condition No (02/10/21 2:41 PM) Invalid Interpretation Code AH Auto Viro/Sero SS status Not (02/10/21 2:41 PM) Invalid Interpretation Code AH Auto Viro/Sero SS RESIDES IN A CONGREGATE CARE SETTING:FIND:PT:^MARCELAE NT:ORD: No (02/10/21 2:41 PM) Invalid Interpretation Code AH Auto Viro/Sero SS Rhinovirus+Enterovirus RNA SUNITA+non-probe Ql (Nph) Not Detected *NA* (02/10/21 2:41 PM) Invalid Interpretation Code Not Detected AH Auto Viro/Sero SS RSV RNA SUNITA+non-probe Ql (Nph) Not Detected *NA* (02/10/21 2:41 PM) Invalid Interpretation Code Not Detected Auto Viro/Sero SS SARS-CoV-2 (COVID-19) RNA SUNITA+probe Ql (Unsp spec) Not Detected *NA* (02/10/21 2:41 PM) Invalid Interpretation Code Not Detected AH Auto Viro/Sero SS Vital Signs Date Time Vital Sign Value Performing Clinician Facility 05-13-2023 17:24-0400 Body temperature 97.7 [degF] [facility] 05-13-2023 17:24-0400 Diastolic blood pressure 78 mm[Hg] [facility] 05-13-2023 17:24-0400 Heart rate 70 /min [facility] 05-13-2023 17:24-0400 Respiratory rate 16 /min [facility] 05-13-2023 17:24-0400 SaO2% (BldA) [Mass fraction] 96 % [facility] 05-13-2023 17:24-0400 Systolic blood pressure 148 mm[Hg] [facility] 05-13-2023 15:24-0400 Body height 160.02 cm [facility] 05-13-2023 15:24-0400 Body mass index (BMI) [Ratio] 49 kg/m2 [facility] 05-13-2023 15:24-0400 Body weight 125.5 kg [facility] 10-19-2022 10:43-0400 Diastolic Blood Pressure Non-Invasive 64 [address] [facility] 10-19-2022 10:43-0400 Heart rate 67 /min COLLEEN SUPPAN DPM [facility] 10-19-2022 10:43-0400 Systolic Blood Pressure Non-Invasive 126 [address] [facility] 10-19-2022 10:22-0400 Diastolic Blood Pressure Non-Invasive 65 [address] [facility] 10-19-2022 10:22-0400 Heart rate 66 /min COLLEEN SUPPAN DPM [facility] 10-19-2022 10:22-0400 Systolic Blood Pressure Non-Invasive 131 [address] [facility] 10-19-2022 10:17-0400 Diastolic Blood Pressure Non-Invasive 66 [address] [facility] 10-19-2022 10:17-0400 Heart rate 69 /min COLLEEN SUPPAN DPM [facility] 10-19-2022 10:17-0400 Respiratory rate 18 /min COLLEEN SUPPAN DPM [facility] 10-19-2022 10:17-0400 Systolic Blood Pressure Non-Invasive 119 [address] [facility] 10-19-2022 10:13-0400 Respiratory rate 17 /min COLLEEN SUPPAN DPM [facility] 10-19-2022 10:05-0400 Body temperature 97.52 [degF] COLLEEN SUPPAN DPM [facility] 10-19-2022 10:05-0400 Respiratory rate 16 /min COLLEEN SUPPAN DPM [facility] 10-19-2022 10:00-0400 Respiratory Rate - Anes 0 br/min COLLEEN SUPPAN DPM [facility] 10-19-2022 09:55-0400 Respiratory Rate - Anes 16 br/min COLLEEN SUPPAN DPM [facility] 10-19-2022 09:50-0400 Respiratory Rate - Anes 18 br/min COLLEEN SUPPAN DPM [facility] 10-19-2022 07:59-0400 Body weight 46.68 kg/m2 COLLEEN SUPPAN DPM [facility] 10-19-2022 07:50-0400 Body height 160 cm COLLEEN SUPPAN DPM [facility] 10-19-2022 07:50-0400 Body temperature 95.72 [degF] COLLEEN SUPPAN DPM [facility] 10-19-2022 07:50-0400 Body weight 119.5 kg COLLEEN SUPPAN DPM [facility] 10-19-2022 07:50-0400 Heart rate 71 /min COLLEEN SUPPAN DPM [facility] 10-11-2022 13:03-0400 Body height 160 cm COLLEEN SUPPAN DPM [facility] 10-11-2022 13:03-0400 Body weight 119.5 kg COLLEEN SUPPAN DPM [facility] 11-25-2021 16:19-0400 Body temperature 97.88 [degF] NELSON STEWART MD [facility] 11-25-2021 16:19-0400 Diastolic blood pressure 96 mm[Hg] NELSON STEWART MD [facility] 11-25-2021 16:19-0400 Heart rate 92 /min NELSON STEWART MD [facility] 11-25-2021 16:19-0400 Respiratory rate 16 /min NELSON STEWART MD [facility] 11-25-2021 16:19-0400 Systolic blood pressure 154 mm[Hg] NELSON STEWART MD [facility] Encounters Encounter Date Encounter Type Care Provider Facility Start: 04-23-2024 End: 04-23-2024 ambulatory Ceferino Cam SAP MANAGER-C Work Phone: [facility] Work Phone: Start: 04-23-2024 End: 04-23-2024 Patient encounter procedure Ceferion Cam SAP MANAGER-C -[facility] [place] Work Phone: Start: 04-23-2024 End: 04-23-2024 ambulatory Ceferino Cam SAP MANAGER Facility:[facility] Start: 10-22-2023 End: 10-22-2023 ambulatory Ceferino Cam SAP MANAGER Facility:[facility] Start: 05-22-2023 ambulatory Ceferino Cam SAP MANAGER Facility:[facility] Start: 05-13-2023 End: 05-13-2023 Emergency department patient visit [facility]-Emergency Department Work Phone: Start: 04-24-2023 End: 04-24-2023 ambulatory [facility] Work Phone: Start: 04-24-2023 End: 04-24-2023 Patient encounter procedure [facility]-Laboratory, [place] Work Phone: Start: 10-19-2022 End: 10-19-2022 ambulatory COLLEEN N SUPPAN DPM Facility:B Start: 10-19-2022 End: 10-19-2022 SAME DAY STAY COLLEEN N SUPPAN DPM [facility] [place] Start: 10-11-2022 End: 10-12-2022 ambulatory COLLEEN N SUPPAN DPM Facility:B Start: 10-11-2022 End: 10-11-2022 Admission to [facility] COLLEEN N SUPPAN DPM [facility] [place] Start: 10-04-2022 End: 10-09-2022 ambulatory CEFERINO CAM TILLER MAN - HOSPITALITY SERVICES MANAGER Facility:B Start: 10-04-2022 End: 10-08-2022 Outreach Lab CEFERINO CAM TILLER MAN - HOSPITALITY SERVICES MANAGER [facility] [place] Start: 11-29-2021 End: 11-29-2021 ambulatory [facility] Work Phone: Start: 11-29-2021 End: 11-29-2021 Patient encounter procedure [facility]Outpatient [facility] Start: 11-25-2021 End: 11-25-2021 Emergency department patient visit NELSON STEWART MD Facility:B Start: 11-25-2021 End: 11-25-2021 Emergency department patient visit NELSON STEWART MD [facility] Start: 03-23-2021 End: 03-23-2021 Patient encounter procedure CEFERINO CAM TILLER MAN - HOSPITALITY SERVICES MANAGER [facility] Start: 02-10-2021 End: 02-14-2021 Outreach Lab CEFERINO CAM TILLER MAN - HOSPITALITY SERVICES MANAGER [facility] Procedures Date Procedure Procedure Detail Performing Clinician Start: 05-13-2023 CT of head without contrast Start: 11-29-2021 Screening mammography Start: 02-26-2008 Cholecystectomy CEFERINO CAM TILLER MAN - HOSPITALITY SERVICES MANAGER Start: 02-25-2003 Vaginal hysterectomy uterus 250 gm/< CEFERINO CAM TILLER MAN - HOSPITALITY SERVICES MANAGER Start: 02-25-1991 Anes lithotrp xtrcor p shock wave w/water bath CEFERINO CAM TILLER MAN - HOSPITALITY SERVICES MANAGER Comment on above: left kidney Start: 02-25-1987 Total nephrectomy SERGE CARRINGTONPKINS TILLER MAN - HOSPITALITY SERVICES MANAGER Comment on above: right Start: 02-25-1977 Anastomotic repair of ureter CEFERINO CARRINGTONPKINS TILLER MAN - HOSPITALITY SERVICES MANAGER Start: 02-26-1968 Appendectomy CEFERINO GERMAN MERYLJUAN TILLER MAN - HOSPITALITY SERVICES MANAGER Start: 02-25-1963 History of repair of umbilical hernia CEFERINO CAM TILLER MAN - HOSPITALITY SERVICES MANAGER Ligation of fallopian tube Jorden BRUNSON DPM Plan of Treatment Date Care Activity Detail Author Start: 05-13-2023 [facility] Patient Education ED Head Injury (Adult) [facility] Work Phone: Patient referral [facility] Work Phone: Immunizations Immunization Date Immunization Notes Care Provider Fa cilishai 06-08-2022 zoster vaccine recombinant; Translations: [Shingrix] CEFERINO CAM TILLER MAN - HOSPITALITY SERVICES MANAGER [facility] 06-08-2022 hepatitis A vaccine, adult dosage; Translations: [Havrix] CEFERINO CAM TILLER MAN - HOSPITALITY SERVICES MANAGER [facility] 11-27-2021 tetanus toxoid, redu marlin diphtheria toxoid, and acellular pertussis vaccine, adsorbed; Translations: [Boostrix (Tdap)] CEFERINO CAM TILLER MAN - HOSPITALITY SERVICES MANAGER [facility] 11-21-2015 influenza virus vaccine, unspecified formulation CEFERINO ACM TILLER MAN - HOSPITALITY SERVICES MANAGER [facility] 11-22-2014 influenza virus vaccine, unspecified formulation CEFERINO CAM TILLER MAN - HOSPITALITY SERVICES MANAGER [facility] 01-26-2014 influenza virus vaccine, unspecified formulation CEFERINO CAM TILLER MAN - HOSPITALITY SERVICES MANAGER [facility] 09-11-2013 measles/mumps/rubell a virus vaccine CEFERINO CAM TILLER MAN - HOSPITALITY SERVICES MANAGER [facility] 12-16-2012 influenza virus vaccine, unspecified formulation CEFERINO CAM TILLER MAN - HOSPITALITY SERVICES MANAGER [facility] 12-07-2011 influenza virus vaccine, unspecified formulation CEFERINO CAM TILLER MAN - HOSPITALITY SERVICES MANAGER [facility] 2004 hepatitis A vaccine, adult dosage CEFERINO CAM TILLER MAN - HOSPITALITY SERVICES MANAGER [facility] Payers Date Payer Category Payer Self-pay [id number] 2022 Unknown [id number] 2016 Unknown [id number] 1960 Unknown [id number] 2.16.8 [id number] 1960 Unknown [id number] 2.16.8 [id number] 1960 Unknown [id number] 2.16.8 [id number] 1960 Unknown [id number] 2.16.8 [id number] Unknown [id number] 2.16.8 [id number] Unknown [id number] 2.16.8 [id number] Unknown [id number] 2.16.8 [id number] Unknown [id number] 2.16.8 [id number] Social History Date Type Detail Facility Start: 03-06-2019 End: 05-13-2023 Never smoked tobacco (finding) [facility] Start: 1960 Sex Assigned At Female A [facility] Start: 05-13-[address] [facility] Unknown if ever smoked [facility] Start: 05-05-2024 Sex Female (finding) [facility] Functional Status Date Assessment Result Facility 10-19-2022 Functional Status Repositions self [facility] 10-19-2022 Functional Status Maintained [facility] 10-11-2022 Functional Status Sensory Deficits None A [facility] 11-25-2021 Functional Status Independent [facility] Mental Status Date Assessment Result Facility 10-19-2022 Mental Status Oriented x 4 [facility] 10-19-2022 Mental Status [facility] 11-25-2021 Mental Status Orientation Oriented x 4 [facility] Clinical Notes 02-10-2021 to 05-13-2023 Note Date & Type Note Facility 05-13-2023 Discharge summary Note Date/Time May 13, 2023 4:26pm [facility] Medical Records Department [address] [place] [address] Emergency Department Summary 05/13/23 MR#: [id number] Acct: [id number] Name: MONICA PEPE Rep #:[id number] : 1960 62 From: Murphy Hood DO PCP: Ceferino Cam, NELY Sta tus:[facility] ER Location: ED HPI History of Present Illness Chief Complaint: Head Injury Narrative Narrative: 62-year-old female on Coumadin presenting with head injury. She states she was walking on a small ramp and slipped and fell. She landed on her buttocks initially and then hit her head. No LOC. No dizziness,, lightheadedness, nauseous, visual complaints. She is ambulating stably. Patient states she camefor CT of her brain because she hit her head she is on anticoagulation. Patientdenies neck pain. Denies other injury. PFSH PFSH Medical History DVT (deep venous thrombosis) Hypothyroidism Kidney stones Retinal tear Home Medications cholecalciferol (vitamin D3) 50 mcg (2,000 unit) tablet (D3 DOTS) 50 mcg PO BID 05/13/23 [History Last Taken Unknown] levothyroxine 125 mcg tablet 125 mcg PO DAILY 05/13/23 [History Last Taken Unknown] phenazopyridine 95 mg tablet (Azo Urinary Pain Relief) 95 mg PO Q8H 05/13/23 [History Last Taken Unknown] phenazopyridine 99.5 mg tablet (Azo Urinary Pain Relief) 199 mg PO DAILY 05/13/23 [History Last Taken Unknown] warfarin 5 mg tablet 7.5 mg PO DAILY 05/13/23 [History Last Taken Unknown] Allergy/AdvReac Type Severity Reaction Status Date / Time latex Allergy Mild Rash Verified 05/13/23 15:27 erythromycin base AdvReac Mild Vomiting Verified 05/13/23 15:27 codeine AdvReac Upset Verified 05/13/23 15:27 Stomach Surgical History H/O tubal ligation H/O: hysterectomy History of cholecystectomy History of right oophorectomy Hx of appendectomy Social History Smoking Status: Never smoker ROS ROS ED Constitutional Constitutional ED: Denies chills, fever(s) or sweats Eyes Eyes: Denies blurry vision or change in vision ENT ENT ED: Denies ear pain or sore throat Cardiovascular Cardiovascular: Denies chest pain, palpitations or racing heartbeat Respiratory/Chest Respiratory/Chest: Denies cough, dyspnea or sputum Gastrointestinal Gastrointestinal: Denies abdominal pain, constipation, diarrhea, nausea or vomiting Genitourinary Genitourinary ED: Denies dysuria, hematuria or urinary frequency Musculoskeletal Musculoskeletal: Denies arthralgias, myalgias or neck pain Integumentary Denies abscess, Abrasions or rash Neurologic Neurologic: Reports headache(s); Denies paresthesias or weakness Psychiatric Psychiatric: Denies anxiety, depression, suicidal ideation or suicidal thoughts Endocrine Endocrinology: Denies polydipsia or polyuria EXAM Physical Exam Const Vital Signs: 05/13/23 15:24 05/13/23 15:49 Temperature 96.9 F L Temperature Source Temporal Pulse Rate 86 Respiratory Rate 18 Respiratory Effort Normal Respiratory Depth Normal Respiratory Pattern Normal Blood Pressure 178/95 H Blood Pressure Mean 122 Pulse Ox 100 Oxygen Delivery Method Room Air Room Air Positive well nourished General Appearance ED: NAD HEENT atraumatic Eyes PERRL and EOMs intact bilaterally Chest Wall inspection of chest normal Resp normal respiratory effort and clear to auscultation bilaterally Auscultation: Negative for rales, rhonchi or wheezes Cardio regular rhythm Extremity normal to inspection Neuro oriented x3, CN's II-XII intact bilaterally, moves all extremities, no focal motor deficits, no sensory deficits noted and gait normal Neuro Narrative: No focal neurologic deficits or lateralizing signs or symptoms Sensorium / Orientation: alert Motor Exam: strength 5/5 throughout Skin no rashes or lesions noted MDM MDM MDM Narrative Medical decision making narrative: Difficult headache although she does have mild 1. No nauseousness, dizziness, lightheadedness, visual complaints.Patient presents with head injury. She had amechanical fall. She is at baseline. Will obtain CT brain. Patient declines analgesia or antiemetics. CT of the brain is negative. Patient counseled on findings. Return precautions discussed. Stable discharge. Impression: 1. Close head injury 2. Mechanical fall Radiography Diagnostic Testing: Clinical Impression(s) from Imaging Studies Brain CT 05/13/23 16:24 IMPRESSION: Soft tissue swelling of the scalp overlying the parietal bones without fracture or acute intracranial bleed Electronically Signed: Sanford Ro MD at 17:11 EDT Reading Location ID and State: [address] [place] [address] Tel , Service support , Discharge Plan Triage Chief Complaint: Head Injury ED Provider: Murphy Hood Dx/Rx/DC Orders Instructions: ED Head Injury (Adult) Prescriptions: No Action levothyroxine 125 mcg tablet 125 mcg PO DAILY warfarin 5 mg tablet 7.5 mg PO DAILY Patient Comments: SUN, MON, WED, FRI TAKE 5 MG; , , SAT TAKE 7.5 MG phenazopyridine [Azo Urinary Pain Relief] 95 mg tablet 95 mg PO Q8H cholecalciferol (vitamin D3) [D3 DOTS] 50 mcg (2,000 unit) tablet 50 mcg PO BID Azo Urinary Pain Relief 99.5 mg tablet 199 mg PO DAILY Primary Care Provider: Ceferino Cam NP Referrals: Ceferino Cam SAP MANAGER, SAP MANAGER-C [Primary Care Provider] - Disposition Disposition: Home, Self Care What to do if you have Problems For any increased pain, shortness of breath, bleeding, nausea or vomiting, chestpain, or any unexpected problems, contact your Primary Care Provider. Call [facility] ([phone]) or report to the closest Emergency Room. Call 911 if necessary. 05/13/23 1716 <Electronically signed by Murphy Hood DO> Cosigner Signature (if applicable): CC: SAP MANAGER-C Ceferino Cam ~ Signed [facility] Work Phone: 1(475) 155-446808-25-2023 Evaluation + Plan noteExtracted from: Title:Clinical Document Author:COLLEEN BRUNSON PM Date:10/19/22 [facility] ADMISSION HISTORY AN D PHYSICIAL CHIEF COMPLAINT: HISTORY OF PRESENT ILLNESS: REVIEW OF SYSTEMS: ACTIVE PROBLEMS: (21) Adequate anticoagulation on anticoagulant therapy (998864696) Anticoagulation goal of INR 2 to 3 (68613897) Chronic knee instability (324548034) DVT of lower extremity (deep venous thrombosis) (9219260856) Heart murmur, 03/02 (745522100) History of DVT of lower extremity (8017428557) Hypothyroidism, adult (24229843) Increased BMI (body mass index) (31975746) Malaria (058321519) Need for vaccination (3597718746) Pes planus of both feet (4577650792) Plantar fasciitis (386277446) Recurrent UTI (426623600) Recurrent UTI (urinary tract infection) (148024464) Screening for breast cancer (734646571) Screening for cardiovascular condition (501839708) Screening for deficiency anemia (697116080) Screening for diabetes mellitus (893081612) Varicose veins of legs (807500853) Vitamin D deficiency (14791502) Well adult health check (045412226) MEDICATIONS: Active Inpt Meds: None Active PRN Meds: None One Time Meds: None Active IV Meds: Lactated Ringers Infusion 1,000 mL (LR 1,000 mL) Start: 10/19/22 7:46:00 EDT, Rate: 125 mL/hr, 10/19/22 7:46:00 EDT ALLERGIES: (2) codeine erythromycin FAMILY HISTORY: SOCIAL HISTORY: PHYSICAL EXAM: VITALS: GshpehYtxmZATkvnnWFUnC1YYG2MqzyFk(kg) 10/19 07:5035.4--[id number]/30906.5 24 Hr Tmax: 35.4 at 10/19 07:50 [...] Future Appointments Appointment Date:10/25/2022 07:40:00 AM Scheduled Provider:CEFERINO CAM APRN - HOSPITALITY SERVICES MANAGER Location:[facility] Appointment Type:PC OV Future Scheduled Tests Radiology* XR Orbits Minimum 4 Views 12/09/21 [facility] Ashly Harrell 08-25-2023 Hospital Discharge instructions Patient Education 10/19/2022 10:16:52 Nausea and Vomiting, Adult, Sxwq-wt-Rnck Nausea and Vomiting, Adult Nausea is feeling [...] fruit juice). ?Low-calorie sports drinks. Eat bland, ytsb-pe-sshwyh foods in small amounts as you are able, such as: ?Bananas. ?Applesauce. ?Rice. ?Low-fat (lean) meats. ?Green Sea. ?Crackers. Avoid drinking fluids that have a lot of sugar or caffeine in them. This includes energy drinks, sports drinks, and soda. Avoid alcohol. Avoid spicy or fatty foods. General instructions Take gkdy-gsp-hlxxpwv and prescription medicines only as told by your doctor. Drink enough fluid to keep your pee (urine) pale yellow. Wash your hands often with soap and water. If you cannot use soap and water, use hand teacher's assistant. Make sure that all people in your [...] too much water in your body. Take fdow-jyj-mmnludp and prescription medicines only as told by [...] 07/30/2008 Document Revised: 06/05/2019 Document Reviewed: 07/22/2018 [employer] Patient Education 2020 [employer] 10/19/2022 10:16:43 How to Use Cold Therapy, Lyad-ve-Sgah How to Use Cold Therapy Cold therapy, [...] 07/30/2008 Document Revised: 11/10/2018 Document Reviewed: 11/10/2018 [employer] Patient Education 2020 [employer] 10/19/2022 10:16:29 Endoscopic Plantar Fasciotomy, Care After [...] and water are not available, use hand teacher's assistant. ?Change your dressing as told by your [...] are safe for you. General instructions Take rshs-jui-aolcibq and prescription medicines only as told by [...] 01/23/2016 Document Revised: 06/04/2019 Document Reviewed: 02/09/2019 [employer] Patient Education 2020 [employer]. 10/19/2022 10:16:16 Monitored Anesthesia Care, Care After [...] before eating solid foods. General instructions Take ekzb-ngy-caxsswe and prescription medicines only as told by [...] 06/03/2016 Document Revised: 05/12/2018 Document Reviewed: 06/03/2016 [employer] Patient Education 2020 [employer]. Follow Up Care 10/03/2022 14:23:01 With:COLLEEN BRUNSON [facility] Surgery Address: [address] [place] [address], [place] [facility] [place] [address]- When: Unknown Comments:YOUR FOLLOW UP APPOINTMENT IS OCTOBER 25 AT 1:20 PM. CALL HIM WITH ANY QUESTIONS OR CONCERNS. GO TO THE EMERGENCY ROOM WITH ANY URGENT CONCERNS. [facility] 08-25-2023 Summary of episode note Discharge Instructions Thank you for allowing [facility] to assist you with your healthcare needs. The following is importantdischarge information regarding your hospital visit. Your Care Team CEFERINO CAM TILLER MAN - HOSPITALITY SERVICES MANAGER DR. Jorden BRUNSON. What to do next Scheduled Follow-Up Appointments Appointment Type When With Where Contact InformationPC OV 10/25/2022 07:40 AM EDT DORINA RICHARDParesh ANDREW - HOSPITALITY SERVICES MANAGER [facility] Follow Up Appointments Follow Up with COLLEEN BRUNSON DPM, Surgery When Why: YOUR FOLLOW UP APPOINTMENT IS OCTOBER 25 AT 1:20 PM. CALL HIM WITH ANY QUESTIONS OR CONCERNS. GO TO THE EMERGENCY ROOM WITH ANY URGENT CONCERNS. Where: [address] [facility], [address] [facility] [place] [address]- The Following Activity and Diet Have Been [...] juice). ? Low-calorie sports drinks. Eat bland, jwku-mm-rwnkgi foods in small amounts as you are able, such as: ? Bananas. ? Applesauce. ? Rice. ? Low-fat (lean) meats. ? Green Sea. ? Crackers. Avoid drinking fluids that have a lot of sugar or caffeine in them. This includes energy drinks, sports drinks, and soda. Avoid alcohol. Avoid spicy or fatty foods. General instructions Take wpld-omf-gpxzbmx and prescription medicines only as told by your doctor. Drink enough fluid to keep your pee (urine) pale yellow. Wash your hands often with soap and water. If you cannot use soap and water, use hand teacher's assistant. Make sure that all people in your [...] too much water in your body. Take pzvy-jym-inlylcm and prescription medicines only as told by [...] 07/30/2008 Document Revised: 06/05/2019 Document Reviewed: 07/22/2018 [employer] Patient Education 2020 [employer] How to Use Cold Therapy Cold [...] 07/30/2008 Document Revised: 11/10/2018 Document Reviewed: 11/10/2018 [employer] Patient Education 2020 [employer]. Endoscopic Plantar Fasciotomy, Care After This sheet [...] and water are not available, use hand teacher's assistant. ? Change your dressing as told by [...] are safe for you. General instructions Take ibpl-rxx-yxwmsbd and prescription medicines only as told by [...] 01/23/2016 Document Revised: 06/04/2019 Document Reviewed: 02/09/2019 [employer] Patient Education 2020 [employer]. Monitored Anesthesia Care, Care After These instructions [...] before eating solid foods. General instructions Take wxum-qdn-xlsbeft and prescription medicines only as told by [...] 06/03/2016 Document Revised: 05/12/2018 Document Reviewed: 06/03/2016 [employer] Patient Education 2020 [employer]. Additional Information VACCINATE! IT SAVES LIVES! Members of the community who have not yet received the COVID-19 vaccine and would like to receive it can visit one of [facility] vaccine clinics. There are many vaccine clinic locations within the [facility]. For locations and available times, please visit [email or web address] It is important to note that some COVID mobile vaccine clinics are held outdoors and may be canceled in rainy or stormy conditions. To learn more about pediatric vaccinations (ages 5-11), we invite you to visit the [facility] webpage. https://www.[facility].org/pages/0942-Qivef-Bsjmtqmcusa-Mhwzdarqwx-Qcyck-Mqe stions.htmlTo learn more about the COVID-19 vaccine, we invite you to visit the CDC website for a list of frequently asked questions.https://www.cdc.gov/coronavirus/2019-ncov/vaccines/faq.html [facility] Patient Portal Access Instructions: Stay connected with your healthcare team and access your personal medical information anytime with the [facility]ide Patient Portal. Please follow the directions below to create your webtide account: 1.Access the email account you provided upon registration to the hospital/physician office.2.Look for an invitation email from [facility].3.Open the email and access the invitation link: AcceptInvitation to [facility].4.Fill in the required wiley to create your account. To access your account, visit [email or web address]. Click the blue button labeled Access Patient Portal and then log in with the username and password that you created in the steps above. You will be able to view your test results, lab results, a summary of your visits, upcoming appointments and more. There is also a convenient messaging option where you can send secure messages to your p rovider. In addition, you will have the ability to download any documents or summaries to your computer and/or send the information securely to a physician. Remember that your healthcare information is confidential, so carefully consider who you will allowto register on the [facility] Patient Portal for access to your information. You can also access the [facility] Patient Portal on the [facility] anali. Simply click on Patient Portal and then log into your account. If you would like to receive a full copy of your medical records, please contact the [facility] Medical Records Department by calling [phone], Saturday through Saturday between 8 a.m. and [...] Call your local pharmacy or go to http://bit.PlayDo/3J5Zx5y to find one close to you.3.Make use of household items: Use cat litter or old coffee grounds to dispose medications if other options arenot available. Mix your drugs with these household products, seal them in an airtight container andthrow it into the garbage. Call [facility]: [phone] to be sure your drugs can be [...] Patient Education Materials Nausea and Vomiting, Adult, Hsuo-hz-Dhdb How to Use Cold Therapy, Mdxo-fh-Vtwj Endoscopic Plantar Fasciotomy, Care After Monitored Anesthesia Care, Care After Medication Leaflets My discharge plan and instructions have been reviewed and explained to me and I,MONICA PEPE understand my current condition and have read and understand these discharge instructions. I have received a written copy of the plan/instructions. If I have questions, I am aware that I should contact my doctor. Patient/Sales Branch Manager Signature: Date/Time: Relationship to Patient: Witness Name/Signature: Date/Time: [facility]08-25-2023 Note ASHLY ADMISSION HISTORY AND PHYSICIAL CHIEF COMPLAINT: HISTORY OF PRESENT ILLNESS: REVIEW OF SYSTEMS: ACTIVE PROBLEMS: (21) Adequate anticoagulation on anticoagulant therapy (755347765) Anticoagulation goal of INR 2 to 3 (62759842) Chronic knee instability (245933630) DVT of lower extremity (deep venous thrombosis) (9442777832) Heart murmur, 1/6 (704667462) History of DVT of lower extremity (3795032829) Hypothyroidism, adult (89714728) Increased BMI (body mass index) (26452557) Malaria (395913765) Need for vaccination (0881416528) Pes planus of both feet (7564294645) Plantar fasciitis (449006203) Recurrent UTI (965854377) Recurrent UTI (urinary tract infection) (773099774) Screening for breast cancer (231687847) Screening for cardiovascular condition (577052139) Screening for deficiency anemia (915444181) Screening for diabetes mellitus (356451963) Varicose veins of legs (802514889) Vitamin D deficiency (91295635) Well adult health check (484473252) MEDICATIONS: Active Inpt Meds: None Active PRN Meds: None One Time Meds: None Active IV Meds: Lactated Ringers Infusion 1,000 mL (LR 1,000 mL) Start: 10/19/22 7:46:00 EDT, Rate: 125 mL/hr, 10/19/22 7:46:00 EDT ALLERGIES: (2) codeine erythromycin FAMILY HISTORY: SOCIAL HISTORY: PHYSICAL EXAM: VITALS: GqqzbuOtrjLGAumluWZFzB6QIV6NrexYt(kg) 10/19 07:5035.4--448745JB34/28870.5 24 Hr Tmax: 35.4 at 10/19 07:50 [...] COLLEEN BRUNSON DPM on 10/19/2022 08:20 AM [facility] [id number] Hospital Discharge instructions Patient Education 11/25/2021 17:07:30 [...] heals Fever over 100.4 F (38.0 C) 2051-4156 The [employer]. [address] [place] [address], [place] [address]. All rights reserved. This information is not intended as a substitute for professional medical care. Always follow yourhealthcare professional's instructions. Follow Up Care 11/25/2021 16:11:22 With:CEFERINO CAM APRN, CNP Address: [address] [place] [address]- When:2-[address] [facility] 10-01-2022 Note Discharge Instructions Thank you for allowing [facility] to assist you with your healthcare needs. [...] Schedule the Following Appointments Follow Up with CEFERINO CAM APRN, CNP When Within 2-4 days Where: [address] [place] [address]- Allergies codeine erythromycin Medications Please ask your primary doctor or pharmacist before taking any other medication not listed, including over the counter drugs, herbal medications, vitamins and or supplements as they may interact [facility] medications. What How Much When Instructions [...] heals Fever over 100.4 F (38.0 C) 4091-2297 [employer]. [address] [place] [address], [place] [address]. All rights reserved. This information is not intended as a substitute for professional medical care. Always follow yourhealthcare professional's instructions. Additional Information VACCINATE! IT SAVES LIVES! Members of the community who have not yet received the COVID-19 vaccine and would like to receive it can visit one of [facility] vaccine clinics. There are many vaccine clinic locations within the [facility]. For locations and available times, please visit [email or web address]. It is important to note that some COVID mobile vaccine clinics are held outdoors and may be canceled in rainy orstormy conditions. To learn more about pediatric vaccinations (ages 5-11), we invite you to visit the [facility] webpage. https://www.akroni[facility]ipds.org/pages/9718-Tjufw-Mqjckpvrqgo-Ymotjnmqmx-Jmnae-Ocv stions.htmlTo learn more about the COVID-19 vaccine, we invite you to visit the [facility] website for a list of frequently asked questions. https://[email or web address]/assets/Frftahxc-odh-Yhbkhhrh/zowyh-Trmqxen-Hpvrwvnekg _Asked-Questions.pdf [facility] Patient Portal Access Instructions: Stay connected with your healthcare team and access your personal medical information anytime with the [facility] Patient Portal. If you would like a full copy of your medical records please contact the [facility] Medical Records Department Saturday through Saturday between 8a.m. and 4:30p.m. Please follow the directions below to access the portal: 1.Access the email account you provided upon registration to the hospital.2.Look for an invitation email from [facility].3.Open the email and access the invitation link: Accept Invitation to [facility]4.Fill in the required iwley to create your account. Sign into [email or web address] with your username and password that you [...] you will allow to register on the [facility]ide Patient Portal for access to your information. You can also access the [facility]ide Patient Portal on the Amind. Simply click on Health Records under [employer] and then click on the [employer] logo. HOW TO SAFELY DISPOSE OF PRESCRIPTION [...] Call your local pharmacy or go to http://Riverbed Technology.PlayDo/4M8Tj0e to find one close to you.3.Make use of household items: Use cat litter or old coffee grounds to dispose medications if other options arenot available. Mix your drugs with these household products, seal them in an airtight container andthrow it into the garbage. Call [facility]: [phone] to be sure your drugs can be [...] been reviewed and explained to me and I,PEPE MONICA Marie understand my current condition and have read and understand these discharge instructions. I have received a written copy of the plan/instructions. If I have questions, I am aware that I should contact my doctor. Patient/Sales Branch Manager Signature: Date/Time: Relationship to Patient: Witness Name/Signature: Date/Time: [facility]10-01-2022 Emergency department Discharge summary Discharge Instructions Thank you for allowing [facility] to assist you with your healthcare needs. [...] Schedule the Following Appointments Follow Up with CEFERINO CAM APRN, CNP When Within 2-4 days Where: [address] [facility] [place] [address]- Allergies codeine erythromycin Medications Please ask your [...] heals Fever over 100.4 F (38.0 C) 5491-8823 [employer]. [address] [place] [address], [place] [address]. All rights reserved. This information is not intended as a substitute for professional medical care. Always follow yourhealthcare professional's instructions. Additional Information VACCINATE! IT SAVES LIVES! Members of the community who have not yet received the COVID-19 vaccine and would like to receive it can visit one of [facility] vaccine clinics. There are many vaccine clinic locations within the [facility]. For locations and available times, please visit [email or web address]. It is important to note that some COVID mobile vaccine clinics are held outdoors and may be canceled in rainy orstormy conditions. To learn more about pediatric vaccinations (ages 5-11), we invite you to visit the [facility] webpage. https://www.[facility].org/pages/9489-Gtojm-Acycnlkftne-Aojrfrimga-Hhfun-Cuw stions.htmlTo learn more about the COVID-19 vaccine, we invite you to visit the [facility] website for a list of frequently asked questions. https://[email or web address]/assets/Cksyxayr-cab-Usjeoluk/wquqc-Qyzpjqp-Egtitxygjs _Asked-Questions.pdf [facility] Patient [facility] Access Instructions: Stay connected with your healthcare team and access your personal medical information anytime with the [facility] Patient Portal. If you would like a full copy of your medical records please contact the [facility] Medical Records Department Saturday through Saturday between 8a.m. and 4:30p.m. Please follow the directions below to access the portal: 1.Access the email account you provided upon registration to the [facility].2.Look for an invitation email from [facility].3.Open the email and access the invitation link: Accept Invitation to [facility]4.Fill in the required wiley to create your account. Sign into [email or web address] with your username and password that you [...] you will allow to register on the [facility] Patient Portal for access to your information. You can also access the [facility] Patient Portal on the [employer] anali. Simply click on Health Records under [employer] and then click on the [facility] logo. [...] Call your local pharmacy or go to http://River[employer].PlayDo/5U7Sp8w to find one close to you.3.Make use of household items: Use cat litter or old coffee grounds to dispose medications if other options arenot available. Mix your drugs with these household products, seal them in an airtight container andthrow it into the garbage. Call [facility]: [phone] to be sure your drugs can be [...] aware that I should contact my doctor. Patient/Sales Branch Manager Signature: Date/Time: Relationship to Patient: Witness Name/Signature: Date/Time: [facility]10-01-2022 Note ORIGINAL EXAMINATION: CT OF THE HEAD [...] Date: 11/25/2021 4:42:01 PM Ordering Provider: NELSON STEWART [facility]10-01-2022 Note ORIGINAL EXAMINATION: CT OF THE HEAD [...] Date: 11/25/2021 4:42:01 PM Ordering Provider: NELSON LYREN-[facility]08-12-2022 Evaluation + Plan note Future Scheduled Tests Radiology* MA Mammo Screening Bilateral w/ Phi 10/06/21 * MA Mammo Screening Bilateral w/ Phi 09/18/21 * XR Foot Minimum 3 Views Left 11/28/20 [facility] 01-27-2022 HCoV 229E RNA SUNITA+non-probe Ql (Nph)Not Detected *NA* (03/23/21 12:00 PM) Auto Viro/Sero [id number] HCoV 229E RNA SUNITA+non-probe Ql (Nph)Not Detected *NA* (02/10/21 2:41 PM) Auto Viro/Sero [id number] HCoV OC43 RNA SUNITA+non-probe Ql (Nph)Detected *ABN* (02/10/21 2:41 PM) Auto Viro/Sero SSEvaluation + Plan note Future Appointments Appointment Date:02/21/2021 11:45:00 AM Scheduled Provider: Location:[facility] Appointment Type:PC Nurse Protime Future Scheduled Tests Laboratory* Thyroid Stimulating Hormone 03/22/21 * Free T4 03/22/21 * Vitamin D Level 03/22/21 Radiology* XR Foot Minimum 3 Views Left 11/28/20 [facility] Evaluation + Plan note Future Appointments Appointment Date:03/24/2021 11:45:00 AM Scheduled Provider: Location:[facility] Appointment Type:PC Nurse Protime Future Scheduled Tests Laboratory* Thyroid Stimulating Hormone 03/22/21 * Free T4 03/22/21 * Vitamin D Level 03/22/21 Radiology* XR Foot Minimum 3 Views Left 11/28/20 [facility] Evaluation + Plan note Future Appointments Appointment Date:10/25/2022 07:40:00 AM Scheduled Provider:CEFERINO CAM APRN, CNP Location:[facility] Appointment Type:PC OV Future Scheduled Tests Radiology* XR Orbits Minimum 4 Views 12/09/21 [facility] Evaluation noteNo assessment information available [facility] Work Phone: Hospital course Narrative No data available for this section [facility] Hospital Discharge instructions No data available for this section [facility] Progress note No data available for this section [facility] Reason for referral (narrative)No reason for referral information availableWKe[facility] Work Phone: Chief Complaint and Reason for Visit Chief Complaint SCREENING Chief Complaint HEAD INJURY Summary Purpose Family History No Family History Records Found Advance Directives Advance Directive Response Recorded Date/ Time Name of Medical Power of Tool Adjuster Ebenezer COKER May 13, 2023 3:49pm Living Will Yes May 13, 2023 3:49pm Power of Tool Adjuster Yes May 12 3:49pm Additional Source Comments Care Team (unrecognized sect ion and content) Care Team Personnel Name: Roberth Maradiaga Clerbrien Payan PT Position: P3 Scheduling - Security Screener Advanced Member Role: Other Name: CEFERINO CAM APRN - HOSPITALITY SERVICES MANAGER Position: P4 Advanced Practice Nurse Med Service: Employed Provider Member Role: Primary Care Physician Address: Address: [address] [id number] Care Team Related Persons Name: GERARDO DAVIS Name: MATTHEW PEPE Name: MATTHEW PEPE Goals (unrecognized section and content) Goals may be documented in a n alternate section Patient Care team informatio n (unrecognized section and content) Team Status: Active Member Role Status Dates Ceferino Cam SAP MANAGER, SAP MANAGER-C Family Provider Activ e Ceferino Cam SAP MANAGER, SAP MANAGER-C Primary Care Provider Active Team Status: Inactive Member Role Status Dates Ceferino Cam SAP MANAGER, SAP MANAGER-C Primary Care Provider, Attending Provider, Referring Provider Active Team Status: Inactive Member Role Status Dates Ceferino Cam SAP MANAGER, SAP MANAGER-C Primary Care Provider Active Dr. Murphy Hood , DO Emergency Provider Active Team Status: Inactive Member Role Status Dates Ceferino Cam SAP MANAGER, SAP MANAGER-C Primary Care Provider Active Start: April 232024 End: April 23, 2024 Ceferino Cam NP, SAP MANAGER-C Attending Provider Active Start: March End: April 23, 2024 Ceferino Cam NP, SAP MANAGER-C Referring Provider Active Start: March End: April 23, 2024 INFORMATION SOURCE (unrecogn ized section and content) DATE CREATED AUTHOR 10/23/2022 [facility] ([place]) DATE CREATED AUTHOR AUTHOR'S ORGANIZ ATION 05/08/2024 [facility] FOR RECORDS PERTAINING TO PATIENTS WHO ARE [...] BE BASED ON THE PRIMARY CLINICAL RECORDS. [facility]. provides no warranty or guarantee of the accuracy or completeness of information in this document.
== END | disposition home or self-care (01) ==
LOC: OPBI 07:14
PROVIDERS: PCP Nurse Practitioner Family; Referring Provider Nurse Practitioner Family; Visit Provider Nurse Practitioner Family
DX: Z12.31 Encounter for screening mammogram for malignant neoplasm of breast (principal)
CPT/HCPCS: 77063; 77067

== ENCOUNTER → 2024-11-03 | Outpatient (CLI) | payer BC, SELFPAY ==
--- OUTSIDE RECORDS SUMMARY | 2024-11-03 08:34 | XMS RPT_ITS | CCD ---
Author Organization [facility] Inform ion Partnership [facility] Care Team Providers Care Correctional Corporal Name Role Phone DORINA CUTTER HAND - SHANK BURNISHER, CEFERINO Yoder Primary Care Phys ician Ashwini PT, Ora Unavailable Unavailable DORINA CUTTER HAND - SHANK BURNISHER, CEFERINO Yoder Attending U navailable DORINA CUTTER HAND - SHANK BURNISHER, CEFERINO Yoder Primary Care U navailable SUPPAN DPM, COLLEEN Green Attending Unavailable DORINA CUTTER HAND - SHANK BURNISHER, CEFERINO Yoder Primary Care U navailable SUPPAN DPM, COLLEEN Green Attending Unavailable DORINA CUTTER HAND - SHANK BURNISHER, CEFERINO Yoder Primary Care U navailable NELSON STEWART MD Attending Unavail able DORINA CUTTER HAND - SHANK BURNISHER, CEFERINO Yoder Primary Care U navailable Dorina CASUALTY CLAIMS SUPERVISOR-C, Ceferino Urias Primary Care Provi calixto Dorina CASUALTY CLAIMS SUPERVISOR-C, Ceferino Urias Attending Provider Dorina CASUALTY CLAIMS SUPERVISOR-C, Ceferino Urias Referring Provider Dorina CASUALTY CLAIMS SUPERVISOR-C, Ceferino Urias Primary Care Provi calixto Dorina CASUALTY CLAIMS SUPERVISOR-C, Ceferino Urias Attending Provider Dorina CASUALTY CLAIMS SUPERVISOR-C, Ceferino Urias Referring Provider Dorina CASUALTY CLAIMS SUPERVISOR, Ceferino Urias Attending Unav ailable Dorina CASUALTY CLAIMS SUPERVISOR, Ceferino Urias Primary Care Unav ailable Dorina CASUALTY CLAIMS SUPERVISOR, Ceferino Urias Referring Unav ailable [place] CASUALTY CLAIMS SUPERVISOR, Ceferino Urias Primary Care Unav ailable Dorina CASUALTY CLAIMS SUPERVISOR, Ceferino Urias Referring Unav ailable Dorina CASUALTY CLAIMS SUPERVISOR, Ceferino Urias Attending Unav ailable [place] CASUALTY CLAIMS SUPERVISOR, Ceferino Urias Primary Care Unav ailable Sri Goodman Referring Unavailable Sri Goodman Attending Unavailable Allergies Allergy Classification Reported Allergen(s) Allergy Type Date of Onset Reaction(s) Facility (9 sources) Codeine; Translations: [codeine] Drug Allergy 4 Upset Stomach [facility] (9 sources) Erythromycin; Translations: [erythromycin] Drug Allergy 4 Vomiting [facility] (3 sources) Latex Allergy to substance 4 Rash [facility] (1 source) Codeine Drug Allergy 4 [facility] (1 source) Erythromycin Drug Allergy 4 [facility] (1 source) Latex Drug allergy (disorder) 4 [facility] Medications Current Medications Medication Drug [...] tab(s), 0 Refill(s), 02/15/21 9:06:00 EST, Pharmacy: [facility], URI (upper respiratory infection), 160, cm, 11/28/20 11:22:00 EDT, Height, 122.7, kg, 11/28/20... Start Date: 02/10/21 Stop Date: 02/15/21 Status: Ordered AZO Urinary Pain Relief Max Strength (3 sources) Start: 12-04-2021 AZO Urinary Pain Relief Max Strength Oral, TIDPC, 0 Refill(s) Start Date: 12/04/21 Status: Ordered cholecalciferol 0.05 mg oral tablet (3 sources) Vitamin D Start: 05-13-2023 Cholecalciferol (Vitamin [...] tab(s), 0 Refill(s), 03/30/21 10:07:00 EST, Pharmacy: [facility], Acute sinusitis, unspecified, 160, cm, 03/23/21 9:14:00 EST, Height, kg, 03/23/21 9:14:00 EST, Dosing Weight Start Date: 03/23/21 Stop Date: 03/30/21 Status: Ordered guaiFENesin 600 mg oral tablet (1 source) Start: 03-23-2021 End: 04-02-2021 guaiFENesin 600 mg oral tablet, extended release Dose : 600 mg = 1 tab(s), Oral, q12h, X 10 day(s), # 20 tab(s), 0 Refill(s), 04/02/21 10:07:00 EST, Pharmacy: [facility], Acute sinusitis, unspecified, 160, cm, 03/23/21 9:14:00 EST, Height, kg, 03/23/21 9:14:00 EST, Dosing Weight Start Date: 03/23/21 Stop Date: 04/02/21 Status: Ordered levoFLOXacin 500 mg oral tablet (1 source) Quinolone Antimicrobial Start: 03-23-2021 End: 03-30-2021 levoFLOXacin 500 mg oral tablet Dose : 500 mg = 1 tab(s), Oral, q24h, X 7 day(s), # 7 tab(s), 0 Refill(s), 03/30/21 10:07:00 EST, Pharmacy: [facility], Acute sinusitis, unspecified, 160, cm, 03/23/21 9:14:00 EST, Height, 122.7, kg, 03/23/21 9:14:00 EST, Dosing Weight Start Date: 03/23/21 Stop Date: 03/30/21 Status: Ordered levothyroxine sodium 0.125 mg oral tablet (9 sources) l-Thyroxine Start: 05-13-2023 take 1 tablet by mouth once daily Levothyroxine 125 mcg tablet Active 125 ug PO DAILY May 13, 2023 12:00am Start: 09-28-2022 levothyroxine 125 mcg (0.125 mg) oral tablet Dose : 125 mcg = 1 tab(s), Oral, qDay, # 30 tab(s), 0 Refill(s), Pharmacy: [id number], 160, cm, 05/31/22 11:55:00 EDT, Height, kg, 05/31/22 11:55:00 EDT, Dosing Weight Start Date: 09/28/22 Status: Ordered Start: 04-24-2021 levothyroxine 125 mcg (0.125 mg) oral tablet Dose : 125 mcg = 1 tab(s), Oral, qDay, # 30 tab(s), 6 Refill(s), Pharmacy: [facility], 160, cm, 03/23/21 9:14:00 EST, Height, kg, 03/23/21 9:14:00 EST, Dosing Weight Start Date: 04/24/21 Status: Ordered Start: 04-07-2020 End: 01-02-2021 levothyroxine 125 mcg (0.125 mg) oral tablet Dose : 125 mcg = 1 tab(s), Oral, qDay, # 90 tab(s), 2 Refill(s), Pharmacy: [facility], 158, cm, 04/07/20 8:30:00 EST, Height, kg, 04/07/20 8:30:00 EST, Dosing Weight Start Date: 04/07/20 Stop Date: 01/02/21 Status: Ordered nystatin 100 unt/mg topical powder (4 sources) Polyene Antifungal Start: 06-18-2022 nystatin 10 0,000 units/g topical powder Apply 1 anali, Topical, TID, # 60 gram(s), 1 Refill(s), Pharmacy: [facility], Powder, 160, cm, 05/31/22 11:55:00 EDT, Height, 120.4, kg, 05/31/22 11:55:00 EDT, Dosing Weight Start Date: 06/18/22 Status: Ordered Start: 11-24-2020 nystatin 100,0 00 units/g topical powder Apply 1 anali, Topical, TID, # 60 gram(s), 3 Refill(s), Pharmacy: [facility], Powder, 160, cm, 09/27/20 5:18:00 EDT, Height, 122.7, kg, 09/27/20 5:18:00 EDT, Dosing Weight Start Date: 11/24/20 Status: Ordered nystatin 100,000 units/g topical powder (2 sources) Start: 11-24-2020 nystatin 100,0 00 units/g topical powder Apply 1 anali, Topical, TID, # 60 gram(s), 3 Refill(s), Pharmacy: [facility], Powder, 160, cm, 09/27/20 5:18:00 EDT, Height, 122.7, kg, 09/27/20 5:18:00 EDT, Dosing Weight Start Date: 11/24/20 Status: Ordered phenazopyridine hydrochloride 95 mg oral tablet (6 sources) Start: 05-13-2023 take 1 tablet by [...] Ordered warfarin sodium 5 mg oral tablet (13 sources) Vitamin K Antagonist Start: 05-13-2023 take [...] qDay, # 90 tab(s), 1 Refill(s), Pharmacy: [facility], 160, cm, 05/31/22 11:55:00 EDT, Height, kg, 05/31/22 11:55:00 EDT, Dosing Weight Start Date: 06/18/22 Status: Ordered Start: 06-18-2022 take 1 tablet by mouth once da filomena warfarin 5 mg oral tablet Dose : 5 mg = 1 tab(s), Oral, qDay, 5mg daily, # 90 tab(s), 1 Refill(s), Pharmacy: [facility], 160, cm, 05/31/22 11:55:00 EDT, Height, kg, 05/31/22 11:55:00 EDT, Dosing Weight Start Date: 06/18/22 Status: Ordered Start: 10-26-2021 warfarin 2.5 m g oral tablet Dose : 2.5 mg = 1 tab(s), Oral, qDay, # 30 tab(s), 3 Refill(s), Pharmacy: [facility], 160, cm, 10/06/21 11:18:00 EDT, Height Start Date: 10/26/21 Status: Ordered Start: 10-26-2021 take 1 tablet by mouth once da filomena warfarin 5 mg oral tablet Dose : 5 mg = 1 tab(s), Oral, qDay, 5mg daily, # 30 tab(s), 6 Refill(s), Pharmacy: [facility], 160, cm, 10/06/21 11:18:00 EDT, Height, kg, 10/06/21 11:18:00 EDT, Dosing Weight Start Date: 10/26/21 Status: Ordered Start: 08-01-2020 warfarin 5 mg oral tablet Dose : 5 mg = 1 tab(s), Oral, qDay, 5mg daily except 7.5mg Fridays, # 40 tab(s), 6 Refill(s), Pharmacy: [facility], 158, cm, 04/07/20 8:30:00 EST, Height, [...] sources) 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 Chronic Menopausal disorders (1 source) Menopausal and female climacteric states; Translations: [Menopausal and female climacteric states] Onset: 10-30-2024 Chronic Nutritional deficiencies (8 sources) Vitamin D [...] conditions (not mental disorders or infectious disease) (3 sources) Encounter for screening for diabetes mellitus; Translations: [Encounter for screening mammogram for malignant neoplasm of breast] Onset: 10-04-2022 Episodic Phlebitis; thrombophlebitis and thromboembolism [...] Test Name Value Interpretation Reference Range Facility SCRN MAMM (CAD)W/PHI BILATo n 08-20-2024 SCRN MAMM (CAD)W/PHI BILAT [facility] Imaging Services [address], [place] [id number] SCRN MAMM (CAD)W/PHI BILAT MR#: [id number] Acct: [id number] Name: MONICA PEPE Rep #: [id number] : 1960 F 63 From: Yasir lira MD PCP: VIVIAN RealC Status: DEP CLI Study: SCRN MAMM (CAD)W/PHI BILAT Date of Exam: 07/27 08/19 Exam# [id number] Ordering Dr: Ceferino Cma NP CASUALTY CLAIMS SUPERVISOR-C EXAM: SCRN MAMM (CAD)W/PHI BILAT DATE: 08/20/2024 CLINICAL HISTORY: F, Age 63 y/o , SCREENING Sister with breast cancer. History of prior bilateral breast reduction surgery and right stereotactic breast biopsy. TECHNIQUE: SCRN MAMM (CAD)W/PHI BILAT COMPARISON: Prior exam(s) dated December 05, 2022.. FINDINGS: TISSUE DENSITY: There are scattered areas of fibroglandular density. Bilateral Breast Mammographic Findings: No significant masses, calcifications or other abnormalities are identified. A tissue clip marker is once again seen in the deep upper slightly central portion of the left breast in keeping with prior biopsy. Stable bilateral fat containing axillary lymph nodes. No suspicious masses, areas of developing architectural distortion, or suspicious calcifications. There has been no significant interval change. BI/SCRN MAMM (CAD)W/PHI BILAT IMPRESSION: Stable examination. OVERALL FINAL ASSESSMENT BI-RADS 2: BENIGN RECOMMEND ANNUAL MAMMOGRAPHIC SCREENING. RECOMMENDATION: Routine annual follow-up in 1 Year A letter with findings and recommendations will be mailed to the patient. Reading Location: [facility] CC: NELY Cam Asphalt Machine Operator: Signed Normal [facility] [id number] 04-23-2024 Vitamin D 25-OH 46.4 ng/mL Normal 30-100 [facility] Comment on above: Order Comment: PLEAS E FAX RESULTS TO [phone] Result Comment: Dotty min D Status Deficiency: <20 ng/mL (50nmol/L) Insufficiency: 20-30 ng/mL (50-75 nmol/L) Sufficiency: 30-100 ng/mL (75-250 nmol/L) Toxicity: >100 ng/mL (>250 nmol/L) Performed By: #### L 501.9520, L506.0400, L506.1001 #### [facility] [address] [place], [place], [id number] No Panel InformationOrdered By: Ceferino Cam on 04-23-2024 Vitamin D 25-Hydroxy 46.4 ng/mL 30-100 [facility] Comment on above: Vitamin D StatusDefi ciency: <20 ng/mL (50nmol/L)Insufficiency: 20-30 ng/mL (50-75 nmol/L)Sufficiency: 30-100 ng/mL (75-250 nmol/L)Toxicity: >100 ng/mL (>250 nmol/L) T4 Free Directon 04-23-2024 T4 FREE DIRECT 1.60 ng/dL High 0.76-1.46 [facility] Comment on above: Order Comment: PLEAS E FAX RESULTS TO [phone] Performed By: #### L 501.9520, L506.0400, L506.1001 #### [facility] [address] [place], [place], [address] T4 freeOrdered By: Ceferino low on 04-23-2024 Free T4 [Mass/Vol] 1.60 ng/dL High 0.76-1.46 [facility] TSH DL <= 0.005 mIU/L QnOrde red By: Ceferino Cam on 04-23-2024 Thyroid Stimulating Hormone (TSH) 1.490 uIU/mL 0.300-4.200 [facility] Thyroid Stim Hormone (TSH)on 04-23-2024 TSH 1.490 uIU/mL Normal 0.300-4.200 [facility] Comment on above: Order Comment: BREONNA Salazar FAX RESULTS TO [phone] Performed By: #### L 501.1193, L506.0400, L506.1008 #### [facility] [address] [place], [place], [id number] No Panel InformationOrdered By: Ceferino Cam on 04-24-2023 Vitamin D 25-Hydroxy 39.2 ng/mL [facility] Comment on above: Vitamin D 25(OH) Sta tus Range Deficiency <20 ng/mL (50nmol/L) Insufficiency 20 - 30 ng/mL (50 - 75 nmol/L) Sufficiency 30 - 100 ng/mL (75 - 250 nmol/L) Toxicity >100 ng/mL (>250 nmol/L) Serum or plasma thyroid stim ulating hormone (TSH) measurement (units/volume)Ordered By: Ceferino Cam on 04-24-2023 TSH Qn 1.13 uIU/mL 0.358-3.74 [facility] Thin prep Papanicolaou smear with manual screeningOrdered By: Ceferino Cam on 04-24-2023 Thin prep Papanicolaou smear with manual screening 1.25 ng/dL 0.76-1.46 [facility] .GFRon 10-04-2022 GFR 72 ml/min/1.73sqm Normal [facility] ([place]) Comment on above: Result Comment: GFR Population [...] SH, VIDH, CMP, GFR, LIPID, FT4 #### [address] [address] GFR Non- 59 ml/min/1.73sqm Normal [facility] ([place] Comment on above: Result Comment: GFR Population [...] SH, VIDH, CMP, GFR, LIPID, FT4 #### [address] [address] CMPon 10-04-2022 Albumin Level 3.9 G/dL Normal 3.4-4.8 [facility] ([place]) Comment on above: Performed By: #### T SH, VIDH, CMP, GFR, LIPID, FT4 #### [address] [address] Albumin/Globulin [Mass ratio] 1.3 {ratio} Normal 1.1-2.5 [facility] ([place]) Comment on above: Performed By: #### T SH, VIDH, CMP, GFR, LIPID, FT4 #### [address] [address] ALP [Catalytic activity/Vol] 53 U/L Normal 40-135 [facility] ([place] Comment on above: Performed By: #### T SH, VIDH, CMP, GFR, LIPID, FT4 #### [address] [address] ALT [Catalytic activity/Vol] 36 U/L Normal 14-59 [facility] ([place] Comment on above: Performed By: #### T SH, VIDH, CMP, GFR, LIPID, FT4 #### [address] [address] AST [Catalytic activity/Vol] 27 U/L Normal 10-40 [facility] ([place] Comment on above: Performed By: #### T SH, VIDH, CMP, GFR, LIPID, FT4 #### [address] [address] Bili Total 0.4 mg/dL Normal 0.2-1.0 [facility] ([place]) Comment on above: Result Comment: Use of this assay is not recommended for patients undergoing treatment with eltrombopag due to the potential for falsely elevated results. Performed By: #### T SH, VIDH, CMP, GFR, LIPID, FT4 #### [address] [address] BUN/Creatinine Ratio 20 ratio Normal 7-27 [facility] ([place]) Comment on above: Performed By: #### T SH, VIDH, CMP, GFR, LIPID, FT4 #### [address] [address] Calcium [Mass/Vol] 9.2 mg/dL Normal 8.4-10.2 [facility] ([place]) Comment on above: Performed By: #### T SH, VIDH, CMP, GFR, LIPID, FT4 #### [address] [address] Chloride [Moles/Vol] 106 mmol/L Normal 98-107 [facility] ([place] Comment on above: Performed By: #### T SH, VIDH, CMP, GFR, LIPID, FT4 #### [address] [address] CO2 [Moles/Vol] 28 mmol/L Normal 23-31 [facility] ([place]) Comment on above: Performed By: #### T SH, VIDH, CMP, GFR, LIPID, FT4 #### [address] [address] Creatinine [Mass/Vol] 0.96 mg/dL Normal 0.55-1.02 [facility] ([place]) Comment on above: Performed By: #### T SH, VIDH, CMP, GFR, LIPID, FT4 #### [address] [address] Electrolyte Balance 10.0 mEq/L Normal 4.0-15.0 [facility] ([place]) Comment on above: Performed By: #### T SH, VIDH, CMP, GFR, LIPID, FT4 #### [address] [address] Globulin 3.0 G/dL Normal [facility] ([place]) Comment on above: Performed By: #### T SH, VIDH, CMP, GFR, LIPID, FT4 #### [address] [address] Glucose [Mass/Vol] 95 mg/dL Normal 80-115 [facility] ([place] Comment on above: Performed By: #### T SH, VIDH, CMP, GFR, LIPID, FT4 #### [address] [address] Potassium [Moles/Vol] 4.5 mmol/L Normal 3.5-5.1 [facility] ([place] Comment on above: Performed By: #### T SH, VIDH, CMP, GFR, LIPID, FT4 #### [address] [address] Sodium [Moles/Vol] 144 mmol/L Normal 136-145 [facility] ([place]) Comment on above: Performed By: #### T SH, VIDH, CMP, GFR, LIPID, FT4 #### [address] [address] Total Protein 6.9 G/dL Normal 6.4-8.2 [facility] ([place]) Comment on above: Performed By: #### T SH, VIDH, CMP, GFR, LIPID, FT4 #### [address] [address] Urea nitrogen [Mass/Vol] 19 mg/dL High 7-18 [facility] ([place]) Comment on above: Performed By: #### T SH, VIDH, CMP, GFR, LIPID, FT4 #### [address] [address] FT4on 10-04-2022 Free T4 [Mass/Vol] 1.25 ng/dL Normal 0.76-1.46 [facility] ([place]) Comment on above: Performed By: #### T SH, VIDH, CMP, GFR, LIPID, FT4 #### [address] [address] LABORATORYOrdered By: SYSTEM SYSTEM on 10-04-2022 25-hydroxyvitamin [...] 10-04-2022 Cholesterol [Mass/Vol] 201 mg/dL High 0-200 [facility] ([place]) Comment on above: Result Comment: Chol esterol Reference Interval: Less than 200 Desirable 200-239 Borderline high risk 240 and above High risk Performed By: #### T SH, VIDH, CMP, GFR, LIPID, FT4 #### [place] [id number] Cholesterol in HDL [Mass/Vol] 68 mg/dL High 40-60 [facility] ([place]) Comment on above: Performed By: #### T SH, VIDH, CMP, GFR, LIPID, FT4 #### [address] [address] Cholesterol in LDL [Mass/Vol] 109 mg/dL Normal 0-130 [facility] ([place]) Comment on above: Performed By: #### T SH, VIDH, CMP, GFR, LIPID, FT4 #### [address] [address] Triglyceride [Mass/Vol] 122 mg/dL Normal 0-150 [facility] ([place]) Comment on above: Result Comment: Trig lyceride Reference Interval: Less than 150 Normal 150-199 Borderline high risk 200-499 High risk 500 or higher Very high risk Performed By: #### T SH, VIDH, CMP, GFR, LIPID, FT4 #### [address] [address] TSHon 10-04-2022 TSH Qn 3.04 m[IU]/L Normal 0.36-3.74 [facility] ([place]) Comment on above: Performed By: #### T SH, VIDH, CMP, GFR, LIPID, FT4 #### [address] [address] VIDHon 10-04-2022 Vit. D 25-Hydroxy 48.1 ng/mL Normal [facility] ([place]) Comment on above: Result Comment: Inte rpretive Values Based on Total 25(OH) Vitamin D: Deficient <20 ng/mL Insufficient 20 - <30 ng/mL Sufficient 30-100 ng/mL Performed By: #### T SH, VIDH, CMP, GFR, LIPID, FT4 #### [address] [address] [address] HEAD OR BRAIN W/O CONTRAS Ton [...] 11/25/2021 4:42:01 PM Ordering Provider: NELSON STEWART [facility] ([place]) LABORATORYOrdered By: Reggie Osuna on 03-23-2021 Adenovirus [...] Code Not Detected AH Auto Viro/Sero SS FLUBV RNA SUNITA+non-probe Ql (Nph) Not Detected *NA* (03/23/21 12:00 PM) Invalid Interpretation Code Not Detected AH Auto Viro/Sero SS HAS SYMPTOMS RELATED TO CONDITION OF INTEREST:FIND:PT:^MARCELA ENT:ORD: Yes (03/23/21 12:00 PM) Invalid Interpretation [...] IN A CONGREGATE CARE SETTING:FIND:PT:^MARCELAE NT:ORD: No (03/23/21 12:00 PM) Invalid Interpretation [...] notified. Results have been reported to the [place] [facility]. LABORATORYOrdered By: Reggie Osuna [...] Code Not Detected AH Auto Viro/Sero SS FLUBV RNA SUNITA+non-probe Ql [...] Viro/Sero SS RESIDES IN A CONGREGATE CARE SETTING:FIND:PT:^PATIE NT:ORD: No (02/10/21 2:41 PM) Invalid Interpretation Code AH Auto Viro/Sero SS Rhinovirus+Enterovirus RNA SUINTA+non-probe Ql (Nph) Not Detected *NA* (02/10/21 2:41 [...] Facility 05-13-2023 17:24-0400 Body temperature 97.7 [degF] [facility] 05-13-2023 17:24-0400 Diastolic blood pressure 78 mm[Hg] [facility] 05-13-2023 17:24-0400 Heart rate 70 /min [facility] 05-13-2023 17:24-0400 Respiratory rate 16 /min [facility] 05-13-2023 17:24-0400 SaO2% (BldA) [Mass fraction] 96 % [facility] 05-13-2023 17:24-0400 Systolic blood pressure 148 mm[Hg] [facility] 05-13-2023 15:24-0400 Body height 160.02 cm [facility] 05-13-2023 15:24-0400 Body mass index (BMI) [Ratio] 49 kg/m2 [facility] 05-13-2023 15:24-0400 Body weight 125.5 kg [facility] 10-19-2022 10:43-0400 Diastolic Blood Pressure Non-Invasive 64 1 COLLEEN BRUNSON DPM [facility] 10-19-2022 10:43-0400 Heart rate 67 /min COLLEEN SUPPAN DPM [facility] 10-19-2022 10:43-0400 Systolic Blood Pressure Non-Invasive 126 1 OCLLEEN SUPPAN DPM [facility] 10-19-2022 10:22-0400 Diastolic Blood Pressure Non-Invasive 65 1 COLLEEN SUPPAN DPM [facility] 10-19-2022 10:22-0400 Heart rate 66 /min COLLEEN SUPPAN DPM [facility] 10-19-2022 10:22-0400 Systolic Blood Pressure Non-Invasive 131 1 COLLEEN SUPPAN DPM [facility] 10-19-2022 10:17-0400 Diastolic Blood Pressure Non-Invasive 66 1 COLLEEN SUPPAN DPM [facility] 10-19-2022 10:17-0400 Heart rate 69 /min COLLEEN SUPPAN DPM [facility] 10-19-2022 10:17-0400 Respiratory rate 18 /min COLLEEN SUPPAN DPM [facility] 10-19-2022 10:17-0400 Systolic Blood Pressure Non-Invasive 119 1 COLLEEN SUPPAN DPM [facility] 10-19-2022 10:13-0400 Respiratory rate 17 /min COLLEEN SUPPAN DPM [facility] 10-19-2022 10:05-0400 Body temperature 97.52 [degF] COLLEEN SUPPAN DPM [facility] 10-19-2022 10:05-0400 Respiratory rate 16 /min COLLEEN SUPPAN DPM [facility] 10-19-2022 10:00-0400 Respiratory Rate - Anes 0 br/min COLLEEN SUPPAN DPM [facility] 10-19-2022 09:55-0400 Respiratory Rate - Anes 16 br/min COLLEEN SUPPAN DPM [facility] 10-19-2022 09:50-0400 Respiratory Rate - Anes 18 br/min COLLEEN SUPPAN DPM [facility] 10-19-2022 07:59-0400 Body weight 46.68 kg/m2 COLLEEN SUPPAN DPM [facility] 10-19-2022 07:50-0400 Body height 160 cm COLLEEN SUPPAN DPM [facility] 10-19-2022 07:50-0400 Body temperature 95.72 [degF] COLLEEN SUPPAN DPM [facility] 10-19-2022 07:50-0400 Body weight 119.5 kg COLLEEN SUPPAN DPM [facility] 10-19-2022 07:50-0400 Heart rate 71 /min COLLEEN SUPPAN DPM [facility] 10-11-2022 13:03-0400 Body height 160 cm COLLEEN SUPPAN DPM [facility] 10-11-2022 13:03-0400 Body weight 119.5 kg COLLEEN SUPPAN DPM [facility] 11-25-2021 16:19-0400 Body temperature 97.88 [degF] NELSON STEWART MD [facility] 11-25-2021 16:19-0400 Diastolic blood pressure 96 mm[Hg] NELSON STEWART MD [facility] 11-25-2021 16:19-0400 Heart rate 92 /min NELSON STEWART MD [facility] 11-25-2021 16:19-0400 Respiratory rate 16 /min NELSON STEWART MD [facility] 11-25-2021 16:19-0400 Systolic blood pressure 154 mm[Hg] NELSON STEWART MD [facility] Encounters Encounter Date Encounter Type Care Provider Facility Start: 11-12-2024 ambulatory Ceferino Cam CASUALTY CLAIMS SUPERVISOR Facility:[facility] Start: 08-20-2024 End: 08-20-2024 ambulatory Ceferino Cam CASUALTY CLAIMS SUPERVISOR-C Work Phone: -[facility] Start: 08-20-2024 End: 08-20-2024 Patient encounter procedure Ceferino Cam CASUALTY CLAIMS SUPERVISOR-C -[facility] Work Phone: Start: 08-20-2024 End: 08-20-2024 ambulatory Ceferino Cam CASUALTY CLAIMS SUPERVISOR Facility:[facility] Start: 04-23-2024 End: 04-23-2024 ambulatory Ceferino Cam CASUALTY CLAIMS SUPERVISOR-C Work Phone: [facility] Work Phone: Start: 04-23-2024 End: 04-23-2024 Patient encounter procedure Ceferino Cam CASUALTY CLAIMS SUPERVISOR-C -[facility] [place] Work Phone: Start: 04-23-2024 End: 04-23-2024 ambulatory Ceferino Cam CASUALTY CLAIMS SUPERVISOR Facility:[facility] Start: 05-13-2023 End: 05-13-2023 Emergency department patient visit [facility] Work Phone: Start: 04-24-2023 End: 04-24-2023 ambulatory [facility] Work Phone: Start: 04-24-2023 End: 04-24-2023 Patient encounter procedure [facility], [place] Work Phone: Start: 10-19-2022 End: 10-19-2022 ambulatory COLLEEN N SUPPAN DPM Facility:B Start: 10-19-2022 End: 10-19-2022 SAME DAY STAY COLLEEN N SUPPAN DPM [facility] Start: 10-11-2022 End: 10-12-2022 ambulatory COLLEEN N SUPPAN DPM Facility:[facility] Start: 10-11-2022 End: 10-11-2022 Admission to establishment COLLEEN N SUPPAN DPM [facility] Start: 10-04-2022 End: 10-09-2022 ambulatory CEFERINO CAM CUTTER HAND - SHANK BURNISHER Facility:[facility] Start: 10-04-2022 End: 10-08-2022 Outreach Lab CEFERINO CAM CUTTER HAND - SHANK BURNISHER [facility] Start: 11-29-2021 End: 11-29-2021 ambulatory [facility] Work Phone: Start: 11-29-2021 End: 11-29-2021 Patient encounter procedure [facility] Start: 11-25-2021 End: 11-25-2021 Emergency department patient visit NELSON STEWART MD Facility:B Start: 11-25-2021 End: 11-25-2021 Emergency department patient visit NELSON STEWART MD [facility] Start: 03-23-2021 End: 03-23-2021 Patient encounter procedure CEFERINO CAM CUTTER HAND - SHANK BURNISHER [facility] Start: 02-10-2021 End: 02-14-2021 Outreach Lab CEFERINO CAM CUTTER HAND - SHANK BURNISHER [facility] Procedures Date Procedure Procedure Detail Performing Clinician Start: 05-13-2023 CT of head without contrast Start: 11-29-2021 Screening mammography Start: 02-26-2008 Cholecystectomy CEFERINO MCDOWELLPKINS CUTTER HAND - SHANK BURNISHER Start: 02-25-2003 Vaginal hysterectomy uterus 250 gm/< CEFERINO CAM CUTTER HAND - SHANK BURNISHER Start: 02-25-1991 Anes lithotrp xtrcor p shock wave w/water bath CEFERINO MCDOWELLPKINS CUTTER HAND - SHANK BURNISHER Comment on above: left kidney Start: 02-25-1987 Total nephrectomy SERGE CAM CUTTER HAND - SHANK BURNISHER Comment on above: right Start: 02-25-1977 Anastomotic repair of ureter CEFERINO JENNINGSKINS CUTTER HAND - SHANK BURNISHER Start: 02-26-1968 Appendectomy CEFERINO ELDER CUTTER HAND - SHANK BURNISHER Start: 02-25-1963 History of repair of umbilical hernia CEFERINO MCDOWELLPKINS CUTTER HAND - SHANK BURNISHER Ligation of fallopian tube J ASON SUPPAN DPM Plan of Treatment Date Care Activity Detail Author Start: 08-20-2024 MG Breast - bilatera l Screening [facility] Start: 08-20-2024 Screening mammography SCRN KAVYA M (CAD)W/PHI BILAT [facility] Start: 05-13-2023 [facility] Patient Education ED Head Injury (Adult) [facility] Work Phone: Patient referral [facility] Work Phone: Immunizations Immunization Date Immunization Notes Care Provider Fa cili 06-08-2022 zoster vaccine recombinant; Translations: [Shingrix] CEFERINO DORINA CUTTER HAND - SHANK BURNISHER [facility] 06-08-2022 hepatitis A vaccine, adult dosage; Translations: [Havrix] CEFERINO CAM CUTTER HAND - SHANK BURNISHER [facility] 11-27-2021 tetanus toxoid, redu marlin diphtheria toxoid, and acellular pertussis vaccine, adsorbed; Translations: [Boostrix (Tdap)] CEFERINO CAM CUTTER HAND - SHANK BURNISHER [facility] 11-21-2015 influenza virus vaccine, unspecified formulation CEFERINO CAM CUTTER HAND - SHANK BURNISHER [facility] 11-22-2014 influenza virus vaccine, unspecified formulation CEFERINO CAM CUTTER HAND - SHANK BURNISHER [facility] 01-26-2014 influenza virus vaccine, unspecified formulation CEFERINO DORINA CUTTER HAND - SHANK BURNISHER [facility] 09-11-2013 measles/mumps/rubell a virus vaccine CEFERINO DORINA CUTTER HAND - SHANK BURNISHER [facility] 12-16-2012 influenza virus vaccine, unspecified formulation CEFERINO CAM CUTTER HAND - SHANK BURNISHER [facility] 12-07-2011 influenza virus vaccine, unspecified formulation CEFERINO CAM CUTTER HAND - SHANK BURNISHER [facility] 2004 hepatitis A vaccine, adult dosage CEFERINO CAM CUTTER HAND - SHANK BURNISHER [facility] [place] Payers Date Payer Category Payer Self-pay [id number] 2022 Unknown [id number] 2016 Unknown [id number] 1960 Unknown [id number] 2.16.8 [id number] 1960 Unknown [id number] 2.16.8 [id number] 1960 Unknown [id number] 2.16.8 [id number] 1960 Unknown [id number] 2.16.8 [id number] Unknown [id number] 2.16.8 [id number] Unknown [id number] 2.16.8 [id number] Unknown [id number] 2.16.8 [id number] Social History Date Type Detail Facility Start: 03-06-2019 End: 05-13-2023 Never smoked tobacco (finding) [facility] Start: 1960 Sex Assigned At Female [facility] Start: 05-13-2023 Tobacco smoking stat [facility] Unknown if ever smoked [facility] Start: 05-05-2024 Sex Female (finding) [facility] Functional Status Date Assessment Result Facility 10-19-2022 Functional Status Repositions self [facility] 10-19-2022 Functional Status Maintained [facility] 10-11-2022 Functional Status Sensory Deficits None [facility] 11-25-2021 Functional Status Independent [facility] Mental Status Date Assessment Result Facility 10-19-2022 Mental Status Oriented x 4 [facility] 10-19-2022 Mental Status [facility] 11-25-2021 Mental Status Orientation Oriented x 4 [facility] Clinical Notes 02-10-2021 to 05-13-2023 Note Date & Type Note Facility 05-13-2023 Discharge summary Note Date/Time May 13, 2023 4:26pm [facility] Medical Records Department [address] [place] [address] Emergency Department Summary 05/13/23 MR#: [id number] Acct: [id number] Name: MONICA PEPE Rep #:[id number] : 1960 62 From: Murphy Hood DO PCP: NELY Real tus:REG ER Location: ED HPI History of [...] anticoagulation. Patientdenies neck pain. Denies other injury. [facility] Medical History DVT (deep venous thrombosis) Hypothyroidism [...] Sanford Ro MD at 17:11 EDT , Discharge Plan Triage Chief Complaint: Head Injury ED Provider: Murphy Hood Dx/Rx/DC Orders Instructions: ED Head Injury (Adult) Prescriptions: No Action levothyroxine 125 mcg tablet 125 mcg PO DAILY warfarin 5 mg tablet 7.5 mg PO DAILY Patient Comments: SUN, MON, WED, FRI TAKE 5 MG; TU, TH, SAT TAKE 7.5 MG phenazopyridine [Azo Urinary Pain Relief] 95 mg tablet 95 mg PO Q8H cholecalciferol (vitamin D3) [D3 DOTS] 50 mcg (2,000 unit) tablet 50 mcg PO BID Azo Urinary Pain Relief 99.5 mg tablet 199 mg PO DAILY Primary Care Provider: Ceferino Cam NP Referrals: Ceferino Cam NP, CASUALTY CLAIMS SUPERVISOR-C [Primary Care Provider] - Disposition Disposition: Home, Self Care What to do if you have Problems For any increased pain, shortness of breath, bleeding, nausea or vomiting, chestpain, or any unexpected problems, contact your Primary Care Provider. Call [facility] ([phone]) or report to the closest Emergency Room. Call 911 if necessary. 05/13/231715 <Electronically signed by Murphy Hood DO> Cosigner Signature (if applicable): CC: CASUALTY CLAIMS SUPERVISOR-C Ceferino Cam ~ Signed [facility] Work Phone: 1(906) 938-434708-25-2023 Evaluation + Plan noteExtracted from: Title:Clinical Document Author:COLLEEN BRUNSON Peter Yoder PM Date:10/19/22 [place] ADMISSION HISTORY AN D PHYSICIAL CHIEF COMPLAINT: HISTORY OF PRESENT ILLNESS: REVIEW OF SYSTEMS: ACTIVE PROBLEMS: (21) Adequate anticoagulation on anticoagulant therapy (591148171) Anticoagulation goal of INR 2 to 3 (75779283) Chronic knee instability (006484448) DVT of lower extremity (deep venous thrombosis) (0411344520) Heart murmur, 1/6 (642682090) History of DVT of lower extremity (2719485714) Hypothyroidism, adult (57066039) Increased BMI (body mass index) (41677869) Malaria (822291992) Need for vaccination (3238806253) Pes planus of both feet (9004188312) Plantar fasciitis (136150764) Recurrent UTI (581701969) Recurrent UTI (urinary tract infection) (435287832) Screening for breast cancer (671712369) Screening for cardiovascular condition (073513098) Screening for deficiency anemia (517139331) Screening for diabetes mellitus (754230256) Varicose veins of legs (474074509) Vitamin D deficiency (15703332) Well adult health check (801167465) MEDICATIONS: Active Inpt Meds: None Active PRN Meds: None One Time Meds: None Active IV Meds: Lactated Ringers Infusion 1,000 mL (LR 1,000 mL) Start: 10/19/22 7:46:00 EDT, Rate: 125 mL/hr, 10/19/22 7:46:00 EDT ALLERGIES: (2) codeine erythromycin FAMILY HISTORY: SOCIAL HISTORY: PHYSICAL EXAM: VITALS: DnkuclUvyeKZPnaoaDBUnX5YGQ1NuulNs(kg) 10/19 07:5035.4--305554MJ89/78070.5 24 Hr Tmax: 35.4 at 10/19 07:50 [...] 07:40:00 AM Scheduled Provider:CEFERINO CAM APRN, CNP Location:[facility] Appointment Type:PC OV Future Scheduled Tests Radiology* XR Orbits Minimum 4 Views 12/09/21 [facility] 08-25-2023 Hospital Discharge instructions Patient Education 10/19/2022 10:16:52 Nausea and Vomiting, Adult, Lwlg-dx-Xdtz Nausea and Vomiting, Adult Nausea is feeling [...] fruit juice). ?Low-calorie sports drinks. Eat bland, yvbj-od-rmipfh foods in small amounts as you are able, such as: ?Bananas. ?Applesauce. ?Rice. ?Low-fat (lean) meats. ?Varnell. ?Crackers. Avoid drinking fluids that have a lot of sugar or caffeine in them. This includes energy drinks, sports drinks, and soda. Avoid alcohol. Avoid spicy or fatty foods. General instructions Take xsio-gta-aaiemcf and prescription medicines only as told by your doctor. Drink enough fluid to keep your pee (urine) pale yellow. Wash your hands often with soap and water. If you cannot use soap and water, use hand manager lab. Make sure that all people in your [...] too much water in your body. Take lavu-qaf-tcbfdqp and prescription medicines only as told by [...] 07/30/2008 Document Revised: 06/05/2019 Document Reviewed: 07/22/2018 [employer] Patient Education 2020 [employer]. 10/19/2022 10:16:43 How to Use Cold Therapy, Wxdu-ll-Blqo How to Use Cold Therapy Cold therapy, [...] 07/30/2008 Document Revised: 11/10/2018 Document Reviewed: 11/10/2018 [employer] Patient Education 2020 [employer]. 10/19/2022 10:16:29 Endoscopic Plantar Fasciotomy, Care After [...] and water are not available, use hand manager lab. ?Change your dressing as told by your [...] are safe for you. General instructions Take lqow-zwq-jnfxrtc and prescription medicines only as told by [...] 01/23/2016 Document Revised: 06/04/2019 Document Reviewed: 02/09/2019 [employer] Patient Education 2020 [employer]. 10/19/2022 10:16:16 Monitored Anesthesia Care, Care After [...] before eating solid foods. General instructions Take vjby-byc-hpfxiqr and prescription medicines only as told by [...] 06/03/2016 Document Revised: 05/12/2018 Document Reviewed: 06/03/2016 [employer] Patient Education 2020 [employer]. Follow Up Care 10/03/2022 14:23:01 With:COLLEEN BRUNSON DPHeather, Surgery Address: [address] [place] [address], [address] [facility] [place] [address]- When: Unknown Comments:YOUR FOLLOW UP APPOINTMENT IS OCTOBER 25 AT 1:20 PM. CALL HIM WITH ANY QUESTIONS OR CONCERNS. GO TO THE EMERGENCY ROOM WITH ANY URGENT CONCERNS. [facility] 08-25-2023 Summary of episode note Discharge Instructions Thank you for allowing [facility] to assist you with your healthcare needs. The following is importantdischarge information regarding your hospital visit. Your Care Team CEFERINO CAM APRN - ZANE BRUNSON. What to do next Scheduled Follow-Up Appointments Appointment Type [facility] With [facility]/25[facility]2022 07:40 AM EDT BULMARO CAM APRN - ZANE [facility] Follow Up Appointments Follow Up with COLLEEN BRUNSON DPM, Surgery When Why: YOUR FOLLOW UP APPOINTMENT IS OCTOBER 25 AT 1:20 PM. CALL HIM WITH ANY QUESTIONS OR CONCERNS. GO TO THE EMERGENCY ROOM WITH ANY URGENT CONCERNS. Where: [address] [facility], [address] [facility] [place] [address]- The Following Activity and Diet Have Been [...] juice). ? Low-calorie sports drinks. Eat bland, wxdk-qg-ydhjrp foods in small amounts as you are able, such as: ? Bananas. ? Applesauce. ? Rice. ? Low-fat (lean) meats. ? Varnell. ? Crackers. Avoid drinking fluids that have a lot of sugar or caffeine in them. This includes energy drinks, sports drinks, and soda. Avoid alcohol. Avoid spicy or fatty foods. General instructions Take johz-iqb-yvbefin and prescription medicines only as told by your doctor. Drink enough fluid to keep your pee (urine) pale yellow. Wash your hands often with soap and water. If you cannot use soap and water, use hand manager lab. Make sure that all people in your [...] too much water in your body. Take hfjr-lab-nmfimev and prescription medicines only as told by [...] 07/30/2008 Document Revised: 06/05/2019 Document Reviewed: 07/22/2018 [employer] Patient Education 2020 [employer] Inc. How to Use Cold Therapy Cold [...] 07/30/2008 Document Revised: 11/10/2018 Document Reviewed: 11/10/2018 [employer] Patient Education 2020 [employer] Inc. Endoscopic Plantar Fasciotomy, Care After This [...] and water are not available, use hand manager lab. ? Change your dressing as told by [...] are safe for you. General instructions Take nuxh-fsq-hpcxuon and prescription medicines only as told by [...] 01/23/2016 Document Revised: 06/04/2019 Document Reviewed: 02/09/2019 [employer] Patient Education 2020 [employer]. Monitored Anesthesia Care, Care After These instructions [...] before eating solid foods. General instructions Take vrhv-qac-ktkpxzh and prescription medicines only as told by [...] 06/03/2016 Document Revised: 05/12/2018 Document Reviewed: 06/03/2016 [employer] Patient Education 2020 [employer] Inc[employer] Additional Information VACCINATE! IT SAVES LIVES! Members of the community who have not yet received the COVID-19 vaccine and would like to receive it can visit one of [facility] vaccine clinics. There are many vaccine clinic locations within the [facility]. For locations and available times, please visit [email or web address]/. It is important to note that some COVID mobile vaccine clinics are held outdoors and may be canceled in rainy or stormy conditions. To learn more about pediatric vaccinations (ages 5-11), we invite you to visit the [facility] webpage. https://www.[facility].org/pages/2121-Jylwl-Nigowpvtatl-Bxpcsqvnti-Myqzz-Qwy stions.htmlTo learn more about the COVID-19 vaccine, we invite you to visit the CDC website for a list of frequently asked questions.https://www.cdc.gov/coronavirus/2019-ncov/vaccines/faq.html [facility] Patient Portal Access Instructions: Stay connected with your healthcare team and access your personal medical information anytime with the [facility] Patient Portal. Please follow the directions below to create your [facility] account: 1.Access the email account you provided upon registration to the hospital/physician office.2.Look for an invitation email from [facility].3.Open the email and access the invitation link: AcceptInvitation to [facility].4.Fill in the required wiley to create your account. To access your account, visit [facility]/[employer]. Click the blue button labeled Access Patient Portal and then log in with the username and password that you created in the steps above. You will be able to view your test results, lab results, a summary of your visits, upcoming appointments and more. There is also a convenient messaging option where you can send secure messages to your Featherlightvider. In addition, you will have the ability to download any documents or summaries to your computer and/or send the information securely to a physician. Remember that your healthcare information is confidential, so carefully consider who you will allowto register on the [facility] Patient Portal for access to your information. You can also access the [facility] Patient Portal on the [facility] anali. Simply click on Patient Portal and then log into your account. If you would like to receive a full copy of your medical records, please contact the [facility] Medical Records Department by calling [phone], Saturday through Saturday between 8 a.m. and [...] Call your local pharmacy or go to http://bit.Ellevation/0O1Oe6f to find one close to you.3.Make use of household items: Use cat litter or old coffee grounds to dispose medications if other options arenot available. Mix your drugs with these household products, seal them in an airtight container andthrow it into the garbage. Call [facility]: [phone] to be sure your drugs can be [...] Patient Education Materials Nausea and Vomiting, Adult, Waod-gk-Nvrh How to Use Cold Therapy, Hsmm-tl-Sxml Endoscopic Plantar Fasciotomy, Care After Monitored Anesthesia Care, Care After Medication Leaflets My discharge plan and instructions have been reviewed and explained to me and IAFSHIN JUANITA E understand my current condition and have read and understand these discharge instructions. I have received a written copy of the plan/instructions. If I have questions, I am aware that I should contact my doctor. Patient/Belt And Link Assembly Supervisor Signature: Date/Time: Relationship to Patient: Witness Name/Signature: Date/Time: [facility]08-25-2023 Note [place] ADMISSION HISTORY AND PHYSICIAL CHIEF COMPLAINT: HISTORY OF PRESENT ILLNESS: REVIEW OF SYSTEMS: ACTIVE PROBLEMS: (21) Adequate anticoagulation on anticoagulant therapy (171952340) Anticoagulation goal of INR 2 to 3 (29077063) Chronic knee instability (153258799) DVT of lower extremity (deep venous thrombosis) (1343438169) Heart murmur, / (429001444) History of DVT of lower extremity (8612169095) Hypothyroidism, adult (27788181) Increased BMI (body mass index) (88417411) Malaria (130018132) Need for vaccination (3155562238) Pes planus of both feet (0819852465) Plantar fasciitis (895423662) Recurrent UTI (081350005) Recurrent UTI (urinary tract infection) (229980548) Screening for breast cancer (018660745) Screening for cardiovascular condition (255390670) Screening for deficiency anemia (299937318) Screening for diabetes mellitus (673481616) Varicose veins of legs (824646859) Vitamin D deficiency (46584814) Well adult health check (386479885) MEDICATIONS: Active Inpt Meds: None Active PRN Meds: None One Time Meds: None Active IV Meds: Lactated Ringers Infusion 1,000 mL (LR 1,000 mL) Start: 10/19/22 7:46:00 EDT, Rate: 125 mL/hr, 10/19/22 7:46:00 EDT ALLERGIES: (2) codeine erythromycin FAMILY HISTORY: SOCIAL HISTORY: PHYSICAL EXAM: VITALS: RouytcLjunTWBlslhMOVlS2MCO6MimzEg(kg) 10/19 07:5035.4--599892KR64/21247.5 24 Hr Tmax: 35.4 at 10/19 07:50 [...] COLLEEN BRUNSON DPM on 10/19/2022 08:20 AM [facility]10-01-2022 Hospital Discharge instructions Patient Education 11/25/2021 17:07:30 [...] heals Fever over 100.4 F (38.0 C) 7210-0169 [employer]. [address] [place] [address]. All rights reserved. This information is not intended as a substitute for professional medical care. Always follow yourhealthcare professional's instructions. Follow Up Care 11/25/2021 16:11:22 With:CEFERINO CAM APRN, CNP Address: [address] [place] [id number]- When:2-4 days [facility] 10-01-2022 Note Discharge Instructions Thank you for allowing [facility] to assist you with your healthcare needs. [...] APRN, CNP When Within 2-4 days Where: [address] [place] [address]- Allergies codeine erythromycin Medications Please ask your [...] heals Fever over 100.4 F (38.0 C) 8397-0684 [employer]. [address] [place] [address]. All rights reserved. This information is not intended as a substitute for professional medical care. Always follow yourhealthcare professional's instructions. Additional Information VACCINATE! IT SAVES LIVES! Members of the community who have not yet received the COVID-19 vaccine and would like to receive it can visit one of [facility] vaccine clinics. There are many vaccine clinic locations within the [facility]. For locations and available times, please visit [email or web address]. It is important to note that some COVID mobile vaccine clinics are held outdoors and may be canceled in rainy orstormy conditions. To learn more about pediatric vaccinations (ages 5-11), we invite you to visit the [facility] webpage. https://www.[facility].org/pages/2183-Abnwe-Jvtzrcjxxqv-Bfrwxedmdi-Epivx-Oei stions.htmlTo learn more about the COVID-19 vaccine, we invite you to visit the [facility] website for a list of frequently asked questions. https://ash[facility].[email or web address].fm/assets/Ryfjeggj-fjq-Tqigtmap/uljkf-Vlnuysx-Uyofocplzz _Asked-Questions.pdf [facility] Patient Portal Access Instructions: Stay connected with your healthcare team and access your personal medical information anytime with the [facility] [employer] [facility] Patient Portal. If you would like a full copy of your medical records please contact the [facility] Medical Records Department Saturday through Saturday between 8a.m. and 4:30p.m. Please follow the directions below to access the portal: 1.Access the email account you provided upon registration to the [facility].2.Look for an invitation email from [facility].3.Open the email and access the invitation link: Accept Invitation to [facility]4.Fill in the required wiley to create your account. Sign into [email or web address] with your username and password that you [...] you will allow to register on the [facility] Patient Portal for access to your information. You can also access the [facility] Patient Portal on the MMIS anali. Simply click on Health Records under Verbling and then click on the Dialoggy logo. HOW TO SAFELY DISPOSE OF PRESCRIPTION [...] Call your local pharmacy or go to http://[email or web address].Ellevation/6W4Re7b to find one close to you.3.Make use of household items: Use cat litter or old coffee grounds to dispose medications if other options arenot available. Mix your drugs with these household products, seal them in an airtight container andthrow it into the garbage. Call [facility]: [phone] to be sure your drugs can be [...] aware that I should contact my doctor. Patient/Belt And Link Assembly Supervisor Signature: Date/Time: Relationship to Patient: Witness Name/Signature: Date/Time: [facility]10-01-2022 Emergency department Discharge summary Discharge Instructions Thank you for allowing [facility] to assist you with your healthcare needs. [...] CNP When Within 2-4 days Where: [address] [place] [address]- Allergies codeine erythromycin Medications Please ask your [...] heals Fever over 100.4 F (38.0 C) 9202-8587 [employer]. [address] [place] [address]. All rights reserved. This information is not intended as a substitute for professional medical care. Always follow yourhealthcare professional's instructions. Additional Information VACCINATE! IT SAVES LIVES! Members of the community who have not yet received the COVID-19 vaccine and would like to receive it can visit one of [facility] vaccine clinics. There are many vaccine clinic locations within the [facility]. For locations and available times, please visit [email or web address]. It is important to note that some COVID mobile vaccine clinics are held outdoors and may be canceled in rainy orstormy conditions. To learn more about pediatric vaccinations (ages 5-11), we invite you to visit the [facility] webpage. https://www.[facility].org/pages/6354-Xxrbs-Xmjhsoylnoa-Fmgnvxvoqt-Laavq-Yxt stions.htmlTo learn more about the COVID-19 vaccine, we invite you to visit the [employer] website for a list of frequently asked questions. https://[email or web address].Boom.fm/assets/Yfxxoqjd-apn-Yxqquskv/veebo-Ddlzixg-Pocrqsyzpv _Asked-Questions.pdf [facility] Patient Portal Access Instructions: Stay connected with your healthcare team and access your personal medical information anytime with the [facility] Patient Portal. If you would like a full copy of your medical records please contact the [facility] Medical Records Department Saturday through Saturday between 8a.m. and 4:30p.m. Please follow the directions below to access the portal: 1.Access the email account you provided upon registration to the [facility].2.Look for an invitation email from [facility].3.Open the email and access the invitation link: [facility] to [facility]4.Fill in the required wiley to create your account. Sign into [email or web address] with your username and password that you [...] you will allow to register on the [facility] [facility] Patient Portal for access to your information. You can also access the [facility] [facility] Patient Portal on the [employer] Simply click on Health Records under [place] and then click on the [facility] logo. [...] Call your local pharmacy or go to [email or web address] to find one close to you.3.Make use of household items: Use cat litter or old coffee grounds to dispose medications if other options arenot available. Mix your drugs with these household products, seal them in an airtight container andthrow it into the garbage. Call [facility]: [phone] to be sure your drugs can be [...] aware that I should contact my doctor. Patient/Belt And Link Assembly Supervisor Signature: Date/Time: Relationship to Patient: Witness Name/Signature: Date/Time: [facility]10-01-2022 Note ORIGINAL EXAMINATION: CT OF THE HEAD [...] Date: 11/25/2021 4:42:01 PM Ordering Provider: [facility] Note ORIGINAL EXAMINATION: CT OF THE HEAD [...] Date: 11/25/2021 4:42:01 PM [facility]ing [facility] + Plan note Future Scheduled Tests Radiology* MA Mammo Screening Bilateral w/ Phi 10/06/21 * MA Mammo Screening Bilateral w/ Phi 09/18/21 * XR Foot Minimum 3 Views Left 11/28/20 [facility] 01-27-2022 HCoV 229E RNA SUNITA+non-probe Ql (Nph)Not Detected *NA* (03/23/21 12:00 PM) Auto Viro/Sero [id number] HCoV 229E RNA SUNITA+non-probe Ql (Nph)Not Detected *NA* (02/10/21 2:41 PM) Auto Viro/Sero [id number] HCoV OC43 RNA SUNITA+non-probe Ql (Nph)Detected *ABN* (02/10/21 2:41 PM) Auto Viro/Sero SSEvaluation + Plan note Future Appointments Appointment Date:02/21/2021 11:45:00 AM Scheduled Provider: [facility] Appoint[facility] Type:PC Nurse Protime Future Scheduled Tests Laboratory* Thyroid Stimulating Hormone 03/22/21 * Free T4 03/22/21 * Vitamin D Level 03/22/21 Radiology* XR Foot Minimum 3 Views Left 11/28/20 [facility] Evaluation + Plan note Future Appointments Appointment Date:03/24/2021 11:45:00 AM Scheduled Provider: [facility] Appointment Type:PC Nurse Protime Future Scheduled Tests Laboratory* Thyroid Stimulating Hormone 03/22/21 * Free T4 03/22/21 * Vitamin D Level 03/22/21 Radiology* XR Foot Minimum 3 Views Left 11/28/20 [facility] Evaluation + Plan note Future Appointments Appointment Date:10/25/2022 07:40:00 AM Scheduled Provider:CEFERINO CAM APRN, CNP Location:[facility] Appointment Type:PC OV Future Scheduled Tests Radiology* XR Orbits Minimum 4 Views 12/09/21 [facility] Evaluation noteNo assessment information available [facility] Work Phone: Hospital course Narrative No data available for this section [facility] Hospital Discharge instructions No data available for this section [facility] Progress note No data available for this section [facility] Reason for referral (narrative)No reason for referral [facility] Work Phone: Chief Complaint and Reason for Visit Chief Complaint SCREENING Chief Complaint HEAD INJURY Chief Complaint Admit Date SCREENING August 20, 2024 7:13 am Summary Purpose Family History No Family History Records Found Advance Directives No Advanced Directives Records Found Advance Directive Response Recorded Date/ Time Name of Medical Power of Jeep Mechanic Ebenezer COKER May 13, 2023 3:49pm Living Will Yes May 13, 2023 3:49pm Power of Jeep Mechanic Yes May 12 3:49pm Additional Source Comments Care Team (unrecognized sect ion and content) Care Team Personnel Name: Roberth Maradiagarbrien Payan PT Position: P3 Scheduling - Cleaning Attendant Advanced Member Role: Other Name: CEFERINO CAM APRN, CNP Position: P4 Advanced Practice Nurse Med Service: Employed Provider Member Role: Primary Care Physician Address: Address: [address] [place] [address]- [place] Care Team Related Persons Name: GERARDO DAVIS Name: MATTHEW PEPE Name: MATTHEW PEPE Goals (unrecognized section and content) Goals may be documented in a n alternate section Patient Care team informatio n (unrecognized section and content) Team Status: Active Member Role Status Dates Ceferino Urias Dorina CASUALTY CLAIMS SUPERVISOR, CASUALTY CLAIMS SUPERVISOR-C Family Provider Activ e Ceferino Urias Dorina CASUALTY CLAIMS SUPERVISOR, CASUALTY CLAIMS SUPERVISOR-C Primary Care Provider Active Team Status: Inactive Member Role Status Dates Ceferino Urias Dorina CASUALTY CLAIMS SUPERVISOR, CASUALTY CLAIMS SUPERVISOR-C Primary Care Provider, Attending Provider, Referring Provider Active Team Status: Inactive Member Role Status Dates Ceferino Adonay Cam CASUALTY CLAIMS SUPERVISOR, CASUALTY CLAIMS SUPERVISOR-C Primary Care Provider Active Dr. Murphy Hood , DO Emergency Provider Active Team Status: Inactive Member Role Status Dates Ceferino Adonay Cam CASUALTY CLAIMS SUPERVISOR, CASUALTY CLAIMS SUPERVISOR-C Primary Care Provider Active Start: April 232024 End: April 23, 2024 Ceferino Adonay Cam CASUALTY CLAIMS SUPERVISOR, CASUALTY CLAIMS SUPERVISOR-C Attending Provider Active Start: March End: April 23, 2024 Ceferino Adonay Cam CASUALTY CLAIMS SUPERVISOR, CASUALTY CLAIMS SUPERVISOR-C Referring Provider Active Start: March End: April 23, 2024 Team Status: Active Member Role/Relationship Status Dates Ceferino Cam CASUALTY CLAIMS SUPERVISOR, CASUALTY CLAIMS SUPERVISOR-C Primary Care Provider Active Team Status: Inactive Member Role/Relationship Status Dates Ceferino Mcdowellpkins CASUALTY CLAIMS SUPERVISOR, CASUALTY CLAIMS SUPERVISOR-C Primary Care Provider Active Start: August 20, 2024 End: August 20, 2024 Ceferino Sandhuirving Cam CASUALTY CLAIMS SUPERVISOR, CASUALTY CLAIMS SUPERVISOR-C Attending Provider Ac tive Start: August 20, 2024 End: August 20, 2024 Ceferino Mcdowellpkins CASUALTY CLAIMS SUPERVISOR, CASUALTY CLAIMS SUPERVISOR-C Referring Provider Ac tive Start: August 20, 2024 End: August 20, 2024 INFORMATION SOURCE (unrecogn ized section and content) DATE CREATED AUTHOR 10/23/2022 [facility] ([place]) DATE CREATED AUTHOR AUTHOR'S ORGANIZ ATION 11/01/2024 [facility] FOR RECORDS PERTAINING TO PATIENTS WHO [...] BE BASED ON THE PRIMARY CLINICAL RECORDS. [facility]. provides no warranty or guarantee of the accuracy or completeness of information in this document.
[2024-11-03 10:22] LABS: Hemoglobin 13.5 g/dL (12.0-15.0); Red Blood Count 4.81 M/mm3 (4.2-5.4); White Blood Count 6.5 K/mm3 (4.4-11.0)
[2024-11-03 10:23] LABS: Hematocrit 42.2 % (37-47); Mean Corp Hgb Conc 32.0 g/dL (32-36); Mean Corpuscular Volume 87.7 fL (81-99); Mean Platelet Vol. 11.8 fl (6.2-12.0); Platelet Count 166 K/mm3 (150-450); RBC Distribution Width CV 13.2 % (11.6-14.6); RBC Distribution Width SD 42.3 fl (35.1-43.9)
[2024-11-03 12:04] LABS: AST(SGOT) 21 U/L (<=31); Alanine Aminotransfer ALT/SGPT 15 U/L (<=34); Albumin, Serum 4.0 g/dL (3.4-4.8); Alkaline Phosphatase 63 U/L (35-104); Anion Gap 10 (5-15); BUN 13 mg/dL (4-19); BUN/Creat Ratio 15.6 RATIO (10-20); Calcium,Total 9.7 mg/dL (7.6-11.0); Carbon Dioxide 26.3 mmol/L (21.0-32.0); Chloride 106 mmol/L (98-108); Cholesterol 182 mg/dL (<=200); Globulin 3.0 g/dL (2.2-4.2); Glucose 120 mg/dL (70-99); Low Density Lipoprotein Calc. 94 mg/dL; Potassium 4.2 mmol/L (3.3-5.1); Triglycerides 67 mg/dL; Very Low Density Lipoprotein 13 mg/dL (5-40); Vitamin D,25 Hydroxy 53.0 ng/mL (30-100); cholesterol:hdl ratio screen 2.43
== END | disposition home or self-care (01) ==
LOC: MTLAB 08:03
PROVIDERS: PCP Nurse Practitioner Family; Referring Provider Nurse Practitioner Family; Visit Provider Nurse Practitioner Family
DX: Z13.6 Encounter for screening for cardiovascular disorders (principal); E03.9 Hypothyroidism, unspecified; E55.9 Vitamin D deficiency, unspecified; Z13.1 Encounter for screening for diabetes mellitus
CPT/HCPCS: 36415; 80053; 80061; 82306; 84439; 84443; 85027

== ENCOUNTER → 2024-11-26 | Outpatient (CLI) | payer BC, SELFPAY | END | disposition home or self-care (01) | LOC: OPBD 12:23 | PROVIDERS: PCP Nurse Practitioner Family; Referring Provider Obstetrics & Gynecology; Visit Provider Obstetrics & Gynecology | DX: N95.1 Menopausal and female climacteric states (principal); M85.88 Other specified disorders of bone density and structure, other site | CPT/HCPCS: 77080 ==

== ENCOUNTER → 2025-02-23 | Outpatient (CLI) | payer BC, SELFPAY | END | disposition home or self-care (01) | LOC: MTLAB 13:12 | PROVIDERS: PCP Nurse Practitioner Family; Referring Provider Nurse Practitioner Family; Visit Provider Nurse Practitioner Family | DX: E03.9 Hypothyroidism, unspecified (principal) | CPT/HCPCS: 36415; 84439; 84443 ==